=== PATIENT | female | born 1950 | race Caucasian/White ===

== ENCOUNTER 2017-01-06 08:05 | Emergency (ER) | payer MEDICARE ==
[2017-01-06] MEDS ORDERED: BENADRYL 50 MG/ML IV ONE (08:10)
[2017-01-06] MEDS ORDERED: Hydromorphone 1 mg/ml Ampule IV ONE (08:10)
[2017-01-06] MEDS ORDERED: Adacel Vial IM ONE ×2 (08:11→08:20)
[2017-01-06] MEDS ORDERED: Sodium Chloride 0.9% 1000 ML 1,000 ML IV SCH (08:15)
[2017-01-06] MEDS ORDERED: Sodium Chloride 0.9% 1000 ML 1,000 ML ONE (08:20)
[2017-01-06] MEDS ORDERED: Hydromorphone 1 mg/ml Ampule ONE (08:20)
[2017-01-06] MEDS ORDERED: BENADRYL 50 MG/ML ONE (08:20)
--- NOTE | 2017-01-06 08:23 | ERPHSYRPT ---
- History of Present Illness Time Seen by Provider: 01/06/17 08:08 Source: patient Patient Subjective Stated Complaint: pt arrived per pov for a fall this morning , she states she got up and from bed and thinks she might have had a near syncopal episode and fell, she states she hit the side of mary furniture, Triage Nursing Assessment: pt has pain to left rib and abd area, she has large abrasion to left side of back , no other abrasions or bruising, pt was able to walk in gaurding left side, resp easy,chest clear,abd soft tender to left side Physician History: CC: fall Hx: 66 y/o patient of Dr Leeann Christiansen. She got up this AM and felt like she was going to black out. She fell against her mary furniture. She has severe pain in left flank, ribs, and abdomen. Pain worse with movement or deep breath. Unsure last tetanus vaccine. Large abrasion. No headache or head injury. No neck or spine pain. No N/T/W. ILL: DM, CAD s/p CABG. No hx of kidney disease. Occurred: just prior to arrival Severity of Pain-Max: severe Severity of Pain-Current: severe Allergies/Adverse Reactions: ketorolac [From Toradol] Adverse Reaction (Verified 01/06/17 08:15) Home Medications: Metoprolol Tartrate 25 mg [Lopressor 25MG Tab] 25 mg .ROUTE BID 01/06/17 [ History] Hx Tetanus, Diphtheria Vaccination/Date Given: No Hx Influenza Vaccination/Date Given: No Hx Pneumococcal Vaccination/Date Given: No Immunizations Up to Date: Yes - Review of Systems Constitutional: No Fever, No Chills Eyes: No Symptoms Ears, Nose, & Throat: No Symptoms Respiratory: No Cough, No Dyspnea Cardiac: Chest Pain (ribs), Syncope (?) Abdominal/Gastrointestinal: Abdominal Pain, No Nausea, No Vomiting Genitourinary Symptoms: Flank Pain, No Dysuria, No Hematuria Musculoskeletal: Back Pain (ribs), Fall, No Neck Pain Neurological: No Dizziness, No Focal Weakness, No Headache, No Parasthesia All Other Systems: Reviewed and Negative - Past Medical History Pertinent Past Medical History: Yes Cardiac History: Coronary Artery Disease Endocrine Medical History: Diabetes Type II - Past Surgical History Past Surgical History: Yes Cardiac: Cardiac Catheterization, Cardiac Stent Female Surgical History: Other Other Surgical History: c/s,abd tumor removed - Social History Smoking Status: Never smoker Exposure to second hand smoke: No Drug Use: marijuana Patient Lives Alone: Yes - Female History Hx Last Menstrual Period: post - Nursing Vital Signs Nursing Vital Signs: Initial Vital Signs Temperature 97.2 F Temperature Source Oral Pulse Rate 82 Respiratory Rate 16 Blood Pressure [Right Arm] 126/57 Pain Intensity 4 - Brittany Coma Score Best Eye Response (Brittany): (4) open spontaneously Best Verbal Response (Brittany): (5) oriented Best Motor Response (Brittany): (6) obeys commands May Total: 15 - Physical Exam General Appearance: alert, obese, other (extremely uncomfortable with any movement) Head Injury: no evidence of injury Eye Exam: PERRL/EOMI ENT Exam: airway nml Neck Exam: supple, No mid-line tenderness Respiratory/Chest Exam: chest tenderness (left flank and ribs), normal breath sounds Cardiovascular Exam: normal heart sounds, regular rate/rhythm Gastrointestinal Exam: soft, No tenderness, No distention Extremity Exam: normal inspection, normal range of motion, No tenderness Neurologic Exam: alert, oriented x 3, cooperative, sensation nml, No motor deficits Skin Exam: warm, dry SpO2 Interpretation: normal SpO2: 99 Oxygen Delivery: Room Air - Course Nursing assessment & vital signs reviewed: Yes EKG Interpreted by Me: RATE (65), Sinus Rhythm, NORMAL AXIS, NORMAL INTERVALS ( [id number]), NORMAL QRS, NORMAL ST-T - CT Exams abd/pelvis,chest CT Interpretation: Negative, Tele-radiologist Report Ordered Tests: Active Orders 24 hr Category Date Time Status ACCUCHECK [Accucheck] STAT Care 01/06/17 08:52 Active Software Quality Test Engineer STAT Care 01/06/17 08:09 Active EKG-ER Only STAT Care 01/06/17 08:09 Active IV Insertion STAT Care 01/06/17 08:09 Active Wound Care STAT Care 01/06/17 08:11 Active ABDOMEN AND PELVIS W CONTRAST [CT] Stat Exams 01/06/17 08:10 Completed CHEST WITH CONTRAST [CT] Stat Exams 01/06/17 08:10 Taken CBC W DIFF Stat Lab 01/06/17 08:24 Completed CMP Stat Lab 01/06/17 08:24 Stop Req Medication Summary Generic Name Dose Route Start Last Admin Trade Name Edouard PRN Reason Stop Dose Admin Sodium Chloride 1,000 mls @ 100 mls/hr 01/06/17 08:15 01/06/17 08:21 Sodium Chloride 0.9% 1000 Ml IV 02/05/17 08:14 100 mls/hr .Q10H [place] Administration Discontinued Medications Generic Name Dose Route Start Last Admin Trade Name Edouard PRN Reason Stop Dose Admin Bacitracin 0.9 gm 01/06/17 09:49 Baciguent Packet TP 01/06/17 09:50 STAT ONE Diphenhydramine HCl 25 mg 01/06/17 08:10 01/06/17 08:23 Benadryl 50 Mg/Ml IV 01/06/17 08:11 25 mg STAT ONE Administration Diphenhydramine HCl Confirm 01/06/17 08:20 Benadryl 50 Mg/Ml Administered 01/06/17 08:21 Dose 50 mg .ROUTE .STK-MED ONE Diphtheria/Tetanus/Acell Pertussis 0.5 ml 01/06/17 08:11 01/06/17 08:21 Adacel Vial IM 01/06/17 08:12 0.5 ml .ONCE ONE Administration Diphtheria/Tetanus/Acell Pertussis Confirm 01/06/17 08:20 Adacel Vial Administered 01/06/17 08:21 Dose 0.5 ml IM .STK-MED ONE Hydromorphone HCl 1 mg 01/06/17 08:10 01/06/17 08:23 Hydromorphone 1 Mg/Ml Ampule IV 01/06/17 08:11 1 mg STAT ONE Administration Hydromorphone HCl Confirm 01/06/17 08:20 Hydromorphone 1 Mg/Ml Ampule Administered 01/06/17 08:21 Dose 1 mg .ROUTE .STK-MED ONE Sodium Chloride Confirm 01/06/17 08:20 Sodium Chloride 0.9% 1000 Ml Administered 01/06/17 08:21 Dose 1,000 mls @ ud .ROUTE .STK-MED ONE Lab/Rad Data: Laboratory Result Diagrams 01/06/17 08:24 Laboratory Results 01/06/17 Range/Units 08:24 WBC 12.3 H (4.0-10.5) K/mm3 RBC 4.82 (4.1-5.4) M/mm3 Hgb 14.0 (12.0-16.0) gm/dl Hct 42.7 (35-47) % MCV 88.6 (78-100) fl MCH 29.0 (26-32) pg MCHC 32.8 (32-36) g/dl RDW 13.8 (11.5-14.0) % Plt Count 281 (150-450) K/mm3 MPV 9.7 H (6-9.5) fl Gran % 76.7 H (36.0-66.0) % Lymphocytes % 14.1 L (24.0-44.0) % Monocytes % 8.2 (0.0-12.0) % Eosinophils % 0.8 (0.00-5.0) % Basophils % 0.2 (0.0-0.4) % Basophils # 0.03 (0-0.4) - Progress Progress Note: 01/06/17 10:42 Pt was medicated for pain. ?syncope. She declines home pain meds and will use motrin. She will follow up with Dr Leeann Christiansen. Instr given. Counseled pt/family regarding: lab results, diagnosis, need for follow-up, rad results - Departure Time of Disposition: 10:42 Departure Disposition: Home Clinical Impression: left flank contusion Syncope Qualifiers: Syncope type: unspecified Qualified Code(s): R55 - Syncope and collapse Abrasion of left back wall of thorax Qualifiers: Encounter type: initial encounter Qualified Code(s): S20.412A - Abrasion of left back wall of thorax, initial encounter Type 2 diabetes mellitus Qualifiers: Diabetes mellitus complication detail: with other circulatory complications Diabetes mellitus long term care administrator insulin use: with long term care administrator use Condition: Stable Critical Care Time: No Referrals: LEEANN CHRISTIANSEN [Primary Care Provider] - Instructions: Contusion, Fainting, Abrasion Additional Instructions: Stay with family today. No driving. Follow up this week with Dr Leeann Christiansen. REturn for problems or concerns.
[2017-01-06 08:28] LABS: BASOPHIL % 0.2 % (0.0-0.4); Eosinophil % 0.8 % (0.00-5.0); Granulocytes % 76.7 % (36.0-66.0); Lymphocytes % 14.1 % (24.0-44.0); Mean Cell Volume 88.6 fl (78-100); Mean Platelet Volume 9.7 fl (6-9.5); Monocytes % 8.2 % (0.0-12.0); Platelet Count 281 K/mm3 (150-450); Red Blood Count 4.82 M/mm3 (4.1-5.4); Red Cell Distribution Width 13.8 % (11.5-14.0); White Blood Count 12.3 K/mm3 (4.0-10.5)
[2017-01-06] MEDS ORDERED: BACIGUENT PACKET TP ONE (09:49)
--- NOTE | 2017-01-06 10:09 | XRAY ---
Indication: Left-sided pain following fall. Possible syncope. Multiple contiguous axial images obtained through the abdomen and pelvis using 80 cc Isovue 370 contrast only. Comparison: None CT chest reported separately. Noncontrasted stomach and bowel loops appear nonobstructed. Mild scattered colonic fecal debris predominantly in the right hemicolon. Scattered descending and sigmoid diverticulosis without diverticulitis. Previous appendectomy and hysterectomy. No free fluid/air. A few calcified splenic granulomas. Remaining liver, gallbladder, pancreas, spleen, adrenal glands, kidneys, ureters, and bladder appear unremarkable. Mild aortoiliac calcifications. No AAA or pathologic retroperitoneal lymphadenopathy. Osseous structures intact with mild degenerative changes throughout the spine. Impression: 1. Mild fecal stasis without obstruction. Colonic diverticulosis. 2. No acute intra-abdominal/pelvic abnormalities. CT DI 23.68
[2017-01-06 10:14] VITALS: PULSE 82
[2017-01-06 11:15] VITALS: BP 113/53; O2SAT 97
--- NOTE | 2017-01-07 12:05 | XRAY ---
Indication: Left-sided pain following fall. Possible syncope. Multiple contiguous axial images obtained through the chest using 80 cc Isovue 370 contrast. Comparison: None Lungs inflated with minimal bilateral dependent atelectasis, minimal bibasilar fibrosis/scarring, and left lower lobe calcified granuloma. No suspicious pulmonary mass, infiltrate, consolidation, or effusion. Heart is not enlarged and demonstrates previous CABG surgery. Aorta is normal in course and caliber with minimal calcifications. No pathologic mediastinal/hilar lymphadenopathy. Enlarged right thyroid gland with 1.4 cm nodule/cyst. Bony thorax intact with flowing spinal degenerative osteophytes. CT abdomen reported separately. Impression: Nonacute CT chest with contrast exam with chronic features as detailed. CT DI 23.68
== END 2017-01-06 11:13 | disposition home or self-care (01) ==
LOC: ED 08:05
DX: R55 Syncope and collapse (principal); S20.412A Abrasion of left back wall of thorax, initial encounter; S30.1XXA Contusion of abdominal wall, initial encounter; E13.8 Other specified diabetes mellitus with unspecified complications; I25.10 Atherosclerotic heart disease of native coronary artery without angina pectoris
CPT/HCPCS: 36000; 36415; 71260; 74177; 82962; 85025; 90471; 90715; 93005; 93041; 96360; 96361; 96372; 96374; 96375; 99284; J1170; J1200

== ENCOUNTER 2019-02-13 18:47 | Emergency (ER) | payer MEDICARE ==
[2019-02-13] MEDS ORDERED: Hydromorphone 1 mg/ml Ampule IV ONE (19:12)
[2019-02-13] MEDS ORDERED: Zofran 4 MG/2 ML VIAL IV ONE (19:12)
--- NOTE | 2019-02-13 19:12 | ERPHSYRPT ---
- History of Present Illness Time Seen by Provider: 02/13/19 19:05 Source: patient, family Exam Limitations: no limitations Patient Subjective Stated Complaint: woke up Tuesday with a stiff/sore neck on the right side, went to [facility] yesterday and was given prednisone, pain is worse today, reports pain as throbbing Triage Nursing Assessment: Pt states that she woke up Tuesday with a stiff/ sore neck on the right side, went to [facility] yesterday and was given prednisone, pain is worse today, reports pain as throbbing behind the ear, hypertensive, reports pain 10/, no other issues at this time Physician History: 68 y/o white female presents with 3 day h/o of right posterolateral neck pain. pt denies injury. pt woke up Tuesday am with pain. pt given rx for prednisone 20mg once daily 3 days. no improvement and feels sx worse. Timing/Duration: day(s) (3), worse Severity: moderate Modifying Factors: Improves With: movement (worsens) Associated Symptoms: denies symptoms, No nausea, No vomiting, No abdominal pain , No shortness of breath, No cough, No chills, No chest pain, No fever, No headaches, No loss of appetite, No malaise, No rash, No syncope, No seizure, No weakness Allergies/Adverse Reactions: ketorolac [From Toradol] Adverse Reaction (Verified 02/13/19 19:10) Home Medications: Metoprolol Tartrate 25 mg [Lopressor 25MG Tab] 25 mg PO BID 01/06/17 [ History] Enalapril Maleate 20 mg PO DAILY 02/13/19 [History] Insulin NPH Human Isophane [Novolin N] 35 units SQ BID 02/13/19 [History] Insulin Regular, Human [Novolin R] 17 units SQ UD 02/13/19 [History] Rosuvastatin Calcium [Crestor] 10 mg PO DAILY 02/13/19 [History] Hx Tetanus, Diphtheria Vaccination/Date Given: No Hx Influenza Vaccination/Date Given: No Hx Pneumococcal Vaccination/Date Given: No - Review of Systems Constitutional: No Symptoms Eyes: No Symptoms Ears, Nose, & Throat: No Symptoms Respiratory: No Symptoms Cardiac: No Symptoms Abdominal/Gastrointestinal: No Symptoms Genitourinary Symptoms: No Symptoms Musculoskeletal: Neck Pain (right posterolateral) Skin: No Symptoms Neurological: No Symptoms Psychological: No Symptoms Endocrine: No Symptoms Hematologic/Lymphatic: No Symptoms Immunological/Allergic: No Symptoms All Other Systems: Reviewed and Negative - Past Medical History Pertinent Past Medical History: Yes Neurological History: No Pertinent History ENT History: No Pertinent History Cardiac History: Coronary Artery Disease, Hypertension Respiratory History: No Pertinent History Endocrine Medical History: Diabetes Type II Musculoskeletal History: No Pertinent History GI Medical History: No Pertinent History History: No Pertinent History Psycho-Social History: No Pertinent History Female Reproductive Disorders: No Pertinent History - Past Surgical History Past Surgical History: Yes Neuro Surgical History: No Pertinent History Cardiac: CABG, Cardiac Catheterization Respiratory: No Pertinent History Gastrointestinal: No Pertinent History Genitourinary: No Pertinent History Musculoskeletal: No Pertinent History Female Surgical History: Hysterectomy, Section Other Surgical History: abd tumor removed - Social History Smoking Status: Former smoker Exposure to second hand smoke: No Drug Use: none Patient Lives Alone: Yes - Female History Hx Now: No - Nursing Vital Signs Nursing Vital Signs: Initial Vital Signs Temperature 98.4 F 02/13/19 18:55 Pulse Rate 79 02/13/19 18:55 Blood Pressure 149/47 02/13/19 18:55 O2 Sat by Pulse Oximetry 97 02/13/19 18:55 Pain Scale Pain Intensity [Right Neck] 10 Pain Intensity 2 - Physical Exam General Appearance: moderate distress, alert, anxiety Eye Exam: PERRL/EOMI, eyes nml inspection Ears, Nose, Throat Exam: normal ENT inspection, TMs normal, moist mucous membranes Neck Exam: normal inspection, limited range of motion (secondary to pain), other (right paraspinous muscle and trapezius muscle tenderness), No midline tenderness Respiratory Exam: normal breath sounds, lungs clear, No chest tenderness, No respiratory distress, No accessory muscle use, No rhonchi, No wheezing, No stridor Gastrointestinal/Abdomen Exam: soft, No tenderness Pelvic Exam: not done Rectal Exam: not done Back Exam: normal inspection, normal range of motion, No CVA tenderness, No vertebral tenderness Extremity Exam: normal inspection, normal range of motion, pelvis stable Neurologic Exam: alert, oriented x 3, cooperative, automatic glove turner and former II-XII nml as tested Skin Exam: normal color, warm, dry Lymphatic Exam: No adenopathy SpO2 Interpretation: normal SpO2: 97 O2 Delivery: Room Air Ordered Tests: Active Orders 24 hr Category Date Time Status IV Insertion STAT Care 02/13/19 19:12 Active Oxygen-ED Only Nasal Cannula 2 lpm Care 02/13/19 19:57 Active CERVICAL SPINE WO CONTRAST [CT] Stat Exams 02/13/19 19:13 Taken Medication Summary Discontinued Medications Generic Name Dose Route Start Last Admin Trade Name Edouard PRN Reason Stop Dose Admin Hydromorphone HCl 0.5 mg 02/13/19 19:12 02/13/19 19:31 Hydromorphone 1 Mg/Ml Ampule IV 02/13/19 19:13 0.5 mg STAT ONE Administration Hydromorphone HCl Confirm 02/13/19 19:21 Hydromorphone 1 Mg/Ml Ampule Administered 02/13/19 19:22 Dose 1 mg .ROUTE .STK-MED ONE Lorazepam 1 mg 02/13/19 19:14 02/13/19 19:31 Ativan 2 Mg/1 Ml Vial IV 02/13/19 19:15 1 mg STAT ONE Administration Lorazepam Confirm 02/13/19 19:21 Ativan 2 Mg/1 Ml Vial Administered 02/13/19 19:22 Dose 2 mg .ROUTE .STK-MED ONE Methylprednisolone Sodium Succinate 125 mg 02/13/19 19:15 02/13/19 19:30 Solu-Medrol 125 Mg IV 02/13/19 19:16 125 mg STAT ONE Administration Methylprednisolone Sodium Succinate Confirm 02/13/19 19:21 Solu-Medrol 125 Mg Administered 02/13/19 19:22 Dose 125 mg .ROUTE .STK-MED ONE Ondansetron HCl 4 mg 02/13/19 19:12 02/13/19 19:30 Zofran 4 Mg/2 Ml Vial IV 02/13/19 19:13 4 mg STAT ONE Administration Ondansetron HCl Confirm 02/13/19 19:20 Zofran 4 Mg/2 Ml Vial Administered 02/13/19 19:21 Dose 4 mg .ROUTE .STK-MED ONE - Progress Progress: improved, re-examined Progress Note: 02/13/19 21:07 ct c spine: degenerative changes. no acute fx or subluxation 02/13/19 21:08 pt states her pain has sig improved. Counseled pt/family regarding: diagnosis, need for follow-up, rad results - Departure Time of Disposition: 21:08 Departure Disposition: Home Clinical Impression: Muscle spasms of neck Condition: Stable Critical Care Time: No Referrals: LEEANN CHRISTIANSEN [Primary Care Provider] - Additional Instructions: continue your prednisone. call your primary doctor tomorrow for further management Prescriptions: Carisoprodol 350 mg [Soma 350 mg] 350 mg PO Q8H PRN PRN #10 tablet PRN Reason: Muscle Spasms
[2019-02-13] MEDS ORDERED: Ativan 2 MG/1 ML VIAL IV ONE (19:14)
[2019-02-13] MEDS ORDERED: solu-MEDROL 125 MG IV ONE (19:15)
[2019-02-13] MEDS ORDERED: Zofran 4 MG/2 ML VIAL ONE (19:20)
[2019-02-13] MEDS ORDERED: solu-MEDROL 125 MG ONE (19:21)
[2019-02-13] MEDS ORDERED: Ativan 2 MG/1 ML VIAL ONE (19:21)
[2019-02-13] MEDS ORDERED: Hydromorphone 1 mg/ml Ampule ONE (19:21)
[2019-02-13 21:03] VITALS: BP 143/53
[2019-02-13 21:18] VITALS: PULSE 71; O2SAT 92
--- NOTE | 2019-02-14 08:55 | XRAY ---
Indication: Neck pain and stiffness. No known injury. Multiple contiguous axial images obtained through the cervical spine. Sagittal and coronal reformatted images obtained. Comparison: CT neck December 29, 2016. Axial images negative for acute fracture, suspicious bony lesions, or spinal canal stenosis. Stable multilevel degenerative changes including bilateral degenerative facet hypertrophy. Again incidental C2-C3 congenital fusion. Sagittal and coronal reformatted images demonstrates stable normal alignment. Stable C7-T1 disc space narrowing. No acute compression fracture, subluxation, or jumped facet. Normal appearing craniocervical junction. Visualized noncontrasted soft tissues demonstrates stable heterogeneous thyroid gland including enlarged right lobe and substernal thyroid. Base of the brain and lung apices unremarkable. Impression: 1. Stable multilevel degenerative changes. 2. Negative acute fracture/subluxation. 3. Stable incidental heterogeneous thyroid gland with enlarged right lobe and substernal thyroid. CT DI 62.13
== END 2019-02-13 21:27 | disposition home or self-care (01) ==
LOC: ED 18:47
DX: M62.838 Other muscle spasm (principal); M43.6 Torticollis; M54.2 Cervicalgia; I10 Essential (primary) hypertension; E11.9 Type 2 diabetes mellitus without complications
CPT/HCPCS: 36000; 72125; 96374; 96375; 99284; J1170; J2060; J2405; J2930

== ENCOUNTER 2019-02-15 16:00 | Observation (INO) | payer MEDICARE ==
--- NOTE | 2019-02-15 16:38 | ERPHSYRPT ---
- History of Present Illness Historian: patient Exam Limitations: no limitations Patient Subjective Stated Complaint: pain in RLQ, has a chronic constipation problem and had been trying to go to the restroom since 0600 today and she now goes to the bathroom and blood pours out without even trying Triage Nursing Assessment: Pt c/o of RLQ pain that began today, hx of chronic constipation, was trying to have a bowel movement this morning which resulted in a small one but then she began bleeding from the rectum without attempting to produce a bowel movement, bright red blood, pain with palpatation in the right upper and lower quadrants, bowel sounds heard in all 4 quadrants, vomited this AM, vitals wnl, pulses normal, rates pain 05/07 Timing/Duration: today Activities at Onset: none Quality: cramping Abdominal Pain Onset Location: RLQ Severity of Pain-Max: moderate Severity of Pain-Current: mild Modifying Factors: Improves With: other (constipated earlier than blood in her stools). Worsens With: analgesics, antacids, breathing, coughing, defecating, eating, exercise, lying down, movement, palpation, rest, urinating, vomiting, position, walking Associated Symptoms: other (constipated earlier, then blood in her stool), No back, No chest pain, No diaphoresis, No diarrhea, No fever/chills, No fatigue, No headache, No heartburn, No loss of appetite, No nausea, No neck pain, No rash , No shortness of breath, No syncope, No vomiting, No weakness Previous symptoms: no prior history Hx Tetanus, Diphtheria Vaccination/Date Given: No Hx Influenza Vaccination/Date Given: No Hx Pneumococcal Vaccination/Date Given: No <DRE ZAMORANO - Last Filed: 02/15/19 19:21> <KRISTIAN MCMAHAN - Last Filed: 02/15/19 20:35> - History of Present Illness Time Seen by Provider: 02/15/19 16:27 Physician History: 68-year-old white female with history of diabetes type 2, coronary artery disease, high blood pressure . Patient arrives with complaints of constipated since 6:00 this morning she states that she had blood coming from her stool since just prior to arrival. She states she is having right lower quadrant abdominal pain. No nausea no vomiting. Past medical history includes diabetes type 2, coronary artery disease, high blood pressure Past surgical history includes cardiac catheter, hysterectomy, , abdominal tumor removed Social history patient denies tobacco alcohol or illicit drug use (DRE ZAMORANO) Allergies/Adverse Reactions: ketorolac [From Toradol] Adverse Reaction (Verified 02/15/19 16:23) Home Medications: Metoprolol Tartrate 25 mg [Lopressor 25MG Tab] 25 mg PO BID 01/06/17 [ History] Enalapril Maleate 20 mg PO DAILY 02/13/19 [History] Insulin NPH Human Isophane [Novolin N] 35 units SQ BID 02/13/19 [History] Insulin Regular, Human [Novolin R] 17 units SQ UD 02/13/19 [History] Rosuvastatin Calcium [Crestor] 10 mg PO DAILY 02/13/19 [History] - Review of Systems Constitutional: No Fever, No Chills Eyes: No Symptoms Ears, Nose, & Throat: No Symptoms Respiratory: No Cough, No Dyspnea Cardiac: No Chest Pain, No Edema, No Syncope Abdominal/Gastrointestinal: Abdominal Pain (right lower quadrant abdominal pain) , Constipation, Hematochezia, No Nausea, No Vomiting, No Diarrhea, No Hematemesis, No Melena, No Dysphagia, No Appetite Changes Genitourinary Symptoms: No Dysuria Musculoskeletal: No Back Pain, No Neck Pain Skin: No Rash Neurological: No Dizziness, No Focal Weakness, No Sensory Changes Psychological: No Symptoms Endocrine: No Symptoms All Other Systems: Reviewed and Negative <DRE ZAMORANO - Last Filed: 02/15/19 19:21> - Past Medical History Pertinent Past Medical History: Yes Neurological History: No Pertinent History ENT History: No Pertinent History Cardiac History: Coronary Artery Disease, Hypertension Respiratory History: No Pertinent History Endocrine Medical History: Diabetes Type II Musculoskeletal History: No Pertinent History GI Medical History: No Pertinent History History: No Pertinent History Psycho-Social History: No Pertinent History Female Reproductive Disorders: No Pertinent History - Past Surgical History Past Surgical History: Yes Neuro Surgical History: No Pertinent History Cardiac: CABG, Cardiac Catheterization Respiratory: No Pertinent History Gastrointestinal: No Pertinent History Genitourinary: No Pertinent History Musculoskeletal: No Pertinent History Female Surgical History: Hysterectomy, Section Other Surgical History: abd tumor removed - Social History Smoking Status: Former smoker Exposure to second hand smoke: No Drug Use: none Patient Lives Alone: Yes - Female History Hx Now: No <LONADRE HEARDLEY - Last Filed: 02/15/19 19:21> - Physical Exam General Appearance: no apparent distress, alert Eye Exam: PERRL/EOMI, eyes nml inspection Ears, Nose, Throat Exam: normal ENT inspection, pharynx normal, moist mucous membranes Neck Exam: normal inspection, non-tender, supple, full range of motion Respiratory Exam: normal breath sounds, lungs clear, No respiratory distress Cardiovascular Exam: regular rate/rhythm, normal heart sounds, capillary refill <2 sec Gastrointestinal/Abdomen Exam: soft, normal bowel sounds, tenderness (Right lower quadrant tenderness), No distention, No mass, No guarding, No ecchymosis, No pulsatile mass, No rebound, No hepatomegaly, No organomegaly, No splenomegaly Pelvic Exam: not done Rectal Exam: other (patient with bright red blood on rectal examination) Back Exam: normal inspection, normal range of motion, No CVA tenderness, No vertebral tenderness Extremity Exam: normal inspection, normal range of motion, pelvis stable Neurologic Exam: alert, oriented x 3, cooperative, kiln repairer II-XII nml as tested, normal mood/affect, nml cerebellar function, sensation nml, No motor deficits SpO2 Interpretation: normal (97%) SpO2: 97 <LONADRE JULIANA - Last Filed: 02/15/19 19:21> - Nursing Vital Signs Nursing Vital Signs: Initial Vital Signs Temperature 97.4 F 02/15/19 16:07 Pulse Rate 65 02/15/19 16:07 Respiratory Rate 24 02/15/19 16:07 Blood Pressure 122/66 02/15/19 16:07 O2 Sat by Pulse Oximetry 97 02/15/19 16:07 Pain Scale Pain Intensity 4 Ordered Tests: Active Orders 24 hr Category Date Time Status IV Insertion STAT Care 02/15/19 16:32 Active IV Insertion-2nd Peripheral STAT Care 02/15/19 16:32 Active ABDOMEN AND PELVIS W CONTRAST [CT] Stat Exams 02/15/19 19:15 Ordered CBC W DIFF Stat Lab 02/15/19 16:52 Completed CMP Stat Lab 02/15/19 16:52 Stop Req Occult Blood, Other Screening Stat Lab 02/15/19 18:04 Completed PROTIME WITH INR Stat Lab 02/15/19 16:52 Completed PTT Stat Lab 02/15/19 16:52 Completed UA W/RFX UR CULTURE Stat Lab 02/15/19 18:00 Completed Transfer Order Routine Transfer 02/15/19 Ordered Medication Summary Generic Name Dose Route Start Last Admin Trade Name Edouard PRN Reason Stop Dose Admin Sodium Chloride 1,000 mls @ 100 mls/hr 02/15/19 16:45 02/15/19 18:02 Sodium Chloride 0.9% 1000 Ml IV 03/17/19 16:44 100 mls/hr .Q10H ALBAN Administration Levofloxacin/Dextrose 500 mg in 100 mls @ 100 mls/hr 02/15/19 20:21 02/15/19 20:29 Levofloxacin 500mg/100ml D5w IV 02/15/19 21:20 100 ml/hr STAT STA 100 mls/hr Administration Discontinued Medications Generic Name Dose Route Start Last Admin Trade Name Edouard PRN Reason Stop Dose Admin Levofloxacin/Dextrose Confirm 02/15/19 20:25 Levofloxacin 500mg/100ml D5w Administered 02/15/19 20:26 Dose 500 mg in 100 mls @ ud IV .STK-MED ONE Lab/Rad Data: Laboratory Result Diagrams 02/15/19 16:52 02/15/19 16:52 Laboratory Results 02/15/19 02/15/19 02/15/19 Range/Units 18:04 18:00 16:52 WBC (4.0-10.5) K/mm3 RBC (4.1-5.4) M/mm3 Hgb (12.0-16.0) gm/dl Hct (35-47) % MCV (78-100) fl MCH (26-32) pg MCHC (32-36) g/dl RDW (11.5-14.0) % Plt Count (150-450) K/mm3 MPV (6-9.5) fl Gran % (36.0-66.0) % Eos # (Auto) (0-0.5) Absolute Lymphs (auto) (1.0-4.6) Absolute Monos (auto) (0.0-1.3) Lymphocytes % (24.0-44.0) % Monocytes % (0.0-12.0) % Eosinophils % (0.00-5.0) % Basophils % (0.0-0.4) % Absolute Granulocytes (1.4-6.9) Basophils # (0-0.4) PT (9.95-12.35) SECONDS INR (0.8-3.0) APTT (25.3-37.0) SECONDS Sodium Direct 145 (138-146) mmol/L Potassium 3.5 (3.5-4.9) mmol/L Chloride 104 (98-109) mmol/L Carbon Dioxide 32 H (24-29) mmol/L Venous BUN 31 H (8-26) mg/dL Creatinine 1.0 (0.6-1.3) mg/dL Glucose 64 L (70-105) mg/dL Ionized Calcium 1.19 (1.12-1.32) mmol/L Urine Color STRAW (YELLOW) Urine Appearance SLIGHTLY CLOUDY (CLEAR) Urine pH 6.0 (5-6) Ur Specific Collins 1.006 (1.005-1.025) Urine Protein NEGATIVE (Negative) Urine Ketones NEGATIVE (NEGATIVE) Urine Blood NEGATIVE (0-5) Roby/ul Urine Nitrite NEGATIVE (NEGATIVE) Urine Bilirubin NEGATIVE (NEGATIVE) Urine Urobilinogen NEGATIVE (0-1) mg/dL Ur Leukocyte Esterase NEGATIVE (NEGATIVE) Urine WBC (Auto) NONE (0-5) /HPF Urine RBC (Auto) NONE (0-2) /HPF U Epithel Cells (Auto) RARE (FEW) /HPF Urine Bacteria (Auto) RARE (NEGATIVE) /HPF Urine Mucus (Auto) SLIGHT (NEGATIVE) /HPF Urine Culture Reflexed NO (NO) Urine Glucose NEGATIVE (NEGATIVE) mg/dL Stool Occult Blood POSITIVE A (Negative) Slides for Path Review ABO Group Rh Factor Antibody Screen (NEGATIVE) 02/15/19 02/15/19 02/15/19 Range/Units 16:52 16:52 16:52 WBC 18.6 H (4.0-10.5) K/mm3 RBC 4.72 (4.1-5.4) M/mm3 Hgb 13.9 (12.0-16.0) gm/dl Hct 43.3 (35-47) % MCV 91.7 (78-100) fl MCH 29.4 (26-32) pg MCHC 32.1 (32-36) g/dl RDW 14.1 H (11.5-14.0) % Plt Count 292 (150-450) K/mm3 MPV 9.3 (6-9.5) fl Gran % 79.2 H (36.0-66.0) % Eos # (Auto) 0.02 (0-0.5) Absolute Lymphs (auto) 1.86 (1.0-4.6) Absolute Monos (auto) 1.96 H (0.0-1.3) Lymphocytes % 10.0 L (24.0-44.0) % Monocytes % 10.5 (0.0-12.0) % Eosinophils % 0.1 (0.00-5.0) % Basophils % 0.2 (0.0-0.4) % Absolute Granulocytes 14.77 H (1.4-6.9) Basophils # 0.03 (0-0.4) PT 12.0 (9.95-12.35) SECONDS INR 1.03 (0.8-3.0) APTT 20.3 L (25.3-37.0) SECONDS Sodium Direct (138-146) mmol/L Potassium (3.5-4.9) mmol/L Chloride (98-109) mmol/L Carbon Dioxide (24-29) mmol/L Venous BUN (8-26) mg/dL Creatinine (0.6-1.3) mg/dL Glucose (70-105) mg/dL Ionized Calcium (1.12-1.32) mmol/L Urine Color (YELLOW) Urine Appearance (CLEAR) Urine pH (5-6) Ur Specific Collins (1.005-1.025) Urine Protein (Negative) Urine Ketones (NEGATIVE) Urine Blood (0-5) Roby/ul Urine Nitrite (NEGATIVE) Urine Bilirubin (NEGATIVE) Urine Urobilinogen (0-1) mg/dL Ur Leukocyte Esterase (NEGATIVE) Urine WBC (Auto) (0-5) /HPF Urine RBC (Auto) (0-2) /HPF U Epithel Cells (Auto) (FEW) /HPF Urine Bacteria (Auto) (NEGATIVE) /HPF Urine Mucus (Auto) (NEGATIVE) /HPF Urine Culture Reflexed (NO) Urine Glucose (NEGATIVE) mg/dL Stool Occult Blood (Negative) Slides for Path Review YES ABO Group O Rh Factor NEGATIVE Antibody Screen NEGATIVE (NEGATIVE) - Progress Progress: improved <DRE ZAMORANO - Last Filed: 02/15/19 19:21> - Progress Discussed with : Lin (DR AZUL CONSULTED AT 1930 FOR OBSERVATION) <KRISTIAN MCMAHAN - Last Filed: 02/15/19 20:35> - Progress Progress Note: 02/15/19 18:00 60-year-old white female arrives with complaint constipation since this morning then this afternoon she's had hematochezia. Patient appears to be stable. She has some mild right lower quadrant abdominal pain. Rectal examination positive gross blood with rectal exam. 02/15/19 18:46 Patient is wanting to stay at this hospital and consult with Dr. Huitron if she needs scoped. Unfortunately chemistry analyzer is down in patient's chemistry has been sent to [facility] to be run. If patient can have a CTA and she has renal functions that qualify for this he would like to have a CT done. 02/15/19 19:21 The patient's case has been discussed with Dr. Mcmahan. He will some care of this patient secondary to shift change. (DRE ZAMORANO) <DRE ZAMORANO - Last Filed: 02/15/19 19:21> - Departure Time of Disposition: 19:30 Departure Disposition: Observation Critical Care Time: No <KRISTIAN MCMAHAN - Last Filed: 02/15/19 20:35> - Departure Clinical Impression: LOWER GI BLEED Condition: Stable Referrals: LEEANN CHRISTIANSEN [Primary Care Provider] -
[2019-02-15] MEDS ORDERED: Sodium Chloride 0.9% 1000 ML 1,000 ML IV SCH (16:45)
[2019-02-15 17:02] LABS: BASOPHIL % 0.2 % (0.0-0.4); Basophil (Absolute #) 0.03 (0-0.4); Eosinophil % 0.1 % (0.00-5.0); Eosinophil (Absolute #) 0.02 (0-0.5); Granulocyte Absolute (ANC) 14.77 (1.4-6.9); Granulocytes % 79.2 % (36.0-66.0); Hematocrit 43.3 % (35-47); Hemoglobin 13.9 gm/dl (12.0-16.0); Lymphocyte (Absolute #) 1.86 (1.0-4.6); Mean Cell Volume 91.7 fl (78-100); Mean Corpuscular Hemoglobin 29.4 pg (26-32); Mean Corpuscular Hgb Concent. 32.1 g/dl (32-36); Mean Platelet Volume 9.3 fl (6-9.5); Monocyte (Absolute #) 1.96 (0.0-1.3); Monocytes % 10.5 % (0.0-12.0); Platelet Count 292 K/mm3 (150-450); Red Blood Count 4.72 M/mm3 (4.1-5.4); Red Cell Distribution Width 14.1 % (11.5-14.0); White Blood Count 18.6 K/mm3 (4.0-10.5)
[2019-02-15 17:14] LABS: INR 1.03 (0.8-3.0)
[2019-02-15 17:17] LABS: PTT 20.3 SECONDS (25.3-37.0)
[2019-02-15 17:36] LABS: Slide Review 1 YES
[2019-02-15] MEDS ORDERED: Sodium Chloride 0.9% 1000 ML 1,000 ML ONE (17:59)
[2019-02-15 18:00] LABS: ABO TYPING O; Antibody Screen NEGATIVE (NEGATIVE); RH TYPING NEGATIVE
[2019-02-15 18:37] LABS: Appearance SLIGHTLY CLOUDY (CLEAR); Bacteria RARE /HPF (NEGATIVE); Bilirubin NEGATIVE (NEGATIVE); Blood NEGATIVE Ery/ul (0-5); Epithelial Cells RARE /HPF (FEW); Glucose NEGATIVE (NEGATIVE); Ketones NEGATIVE (NEGATIVE); Leukocyte Esterase NEGATIVE (NEGATIVE); Mucus SLIGHT /HPF (NEGATIVE); Nitrite NEGATIVE (NEGATIVE); Protein,Urine Dip NEGATIVE (Negative); Specific Gravity 1.006 (1.005-1.025); Urobilinogen NEGATIVE mg/dL (0-1)
[2019-02-15] MEDS ORDERED: Levofloxacin 500MG/100ML D5W 500 MG/100 ML BAG IV STA (20:21)
[2019-02-15] MEDS ORDERED: Levofloxacin 500MG/100ML D5W 500 MG/100 ML BAG IV ONE (20:25)
[2019-02-15] MEDS ORDERED: NovoLOG Insulin SQ PRN (21:07)
[2019-02-15] MEDS ORDERED: SOMA 350 MG PO PRN (22:49)
[2019-02-15] MEDS: FLAGYL 500 MG IVPB 500 MG/100 ML BAG IV SCH (23:16)
[2019-02-15] MEDS: Lopressor 25MG Tab PO SCH (23:16)
[2019-02-15] MEDS ORDERED: Dextrose 5% -0.45 NaCl 1000 ML 1,000 ML IV SCH (23:45)
[2019-02-16] MEDS ORDERED: TYLENOL 325 MG PO PRN (01:50)
[2019-02-16] MEDS ORDERED: TYLENOL 325 MG ONE (01:59)
[2019-02-16] MEDS ORDERED: Sodium Chloride 0.9% 1000 ML 1,000 ML ONE (03:15)
[2019-02-16] MEDS: Sodium Chloride 0.9% 1000 ML 1,000 ML IV SCH ×2 (03:30→16:10)
[2019-02-16 07:36] LABS: BASOPHIL % 0.2 % (0.0-0.4); Basophil (Absolute #) 0.02 (0-0.4); Eosinophil % 0.5 % (0.00-5.0); Eosinophil (Absolute #) 0.06 (0-0.5); Granulocyte Absolute (ANC) 9.69 (1.4-6.9); Hematocrit 40.6 % (35-47); Lymphocyte (Absolute #) 1.97 (1.0-4.6); Lymphocytes % 15.1 % (24.0-44.0); Mean Cell Volume 91.6 fl (78-100); Mean Corpuscular Hemoglobin 29.3 pg (26-32); Monocyte (Absolute #) 1.34 (0.0-1.3); Monocytes % 10.2 % (0.0-12.0); Platelet Count 258 K/mm3 (150-450); Red Blood Count 4.43 M/mm3 (4.1-5.4); Red Cell Distribution Width 13.9 % (11.5-14.0); White Blood Count 13.1 K/mm3 (4.0-10.5)
[2019-02-16 07:56] LABS: ALBUMIN 3.4 g/dL (3.5-5.0); ALKALINE PHOSPHATASE 55 U/L (38-126); ANION GAP 11.2 MEQ/L (5-15); BLOOD UREA NITROGEN 24 mg/dL (7-17); CHLORIDE 109 mmol/L (98-107); Calcium 8.5 mg/dL (8.4-10.2); Carbon Dioxide 26 mmol/L (22-30); Creatinine 1 0.94 mg/dL (0.52-1.04); Glucose 85 mg/dL (74-106); Potassium 3.6 mmol/L (3.5-5.1); SGOT/AST 19 U/L (14-36); SGPT/ALT 15 U/L (0-35); SODIUM 142 mmol/L (137-145)
[2019-02-16] MEDS: FLAGYL 500 MG IVPB 500 MG/100 ML BAG IV SCH ×2 (08:39→15:41)
--- NOTE | 2019-02-16 09:30 | CONS ---
CONSULT DATE: 02/15/2019 2200 hours REASON FOR CONSULT: Rectal bleeding. HISTORY: The patient presents with rectal bleeding that started today that was bright red blood per rectum. She has had several episodes of this today although the amount has not been that much. She has never had this before. She has had a colonoscopy about four years ago. She denies any abdominal pain, diarrhea, constipation. She denies any chest pain or shortness of breath. PAST MEDICAL HISTORY: Diabetes. Coronary artery disease. Hypertension. PAST SURGICAL HISTORY: Coronary artery bypass graft. Total abdominal hysterectomy bilateral salpingo-oophorectomy for uterine that was benign. Carpal tunnel. MEDICATIONS: Aspirin. ALLERGIES: KETOROLAC. SOCIAL HISTORY: No tobacco. No alcohol. FAMILY HISTORY: Brother with colon cancer in his 50's. PHYSICAL EXAMINATION: GENERAL: No acute distress. HEENT: Sclera nonicteric. Extraocular movements intact. NECK: Supple. No JVD. CHEST: Nonlabored breathing. ABDOMEN: Soft, nondistended, nontender. NEURO: Awake, alert and oriented. PSYCH: Appropriate mood and affect. RECTAL: No masses felt. No external hemorrhoids or fissure. Small amount of old blood in the rectal vault. LAB DATA AND TESTS: Hemoglobin 13. ASSESSMENT: Rectal bleeding. PLAN: The patient is hemodynamically stable with a fairly normal hemoglobin. I agree with admission for observation for any further rectal bleeding and repeat hemoglobin. Depending on how the patient does, upper and lower endoscopy could potentially be performed inpatient or as an outpatient.
[2019-02-16] MEDS ORDERED: ZOCOR 20MG PO SCH (10:00)
[2019-02-16] MEDS ORDERED: NON-FORMULARY ITEM (Rosuvastatin Calcium [Crestor] 10 MG) PO SCH (10:00)
[2019-02-16] MEDS ORDERED: Vasotec 10 MG PO SCH (10:00)
[2019-02-16] MEDS: Lopressor 25MG Tab PO SCH (11:07)
--- NOTE | 2019-02-16 11:11 | PCM.HP ---
History of Present Illness - Chief Complaint Chief Complaint: GI bleed History of Present Illness: is a 68 year old female with PMH of DM, HTN, and constipation presents with abdominal cramp and painless hematchezia started yesterday. Pt denies any f /c, BYRNES, visual changes, cp, sob, n/v/d, or bleeding recently. Pt had a colonoscopy 4yr with normal findings. Surgery has been consulted and suggests conservative management. Medications & Allergies Home Medications: Home Medication List Metoprolol Tartrate 25 mg [Lopressor 25MG Tab] 25 mg PO BID 01/06/17 [ History Confirmed 02/15/19] Carisoprodol 350 mg [Soma 350 mg] 350 mg PO Q8H PRN PRN #10 tablet 02/13/19 [Rx Confirmed 02/15/19] Enalapril Maleate 20 mg PO DAILY 02/13/19 [History Confirmed 02/15/19] Insulin NPH Human Isophane [Novolin N] 35 units SQ BID 02/13/19 [History Confirmed 02/15/19] Insulin Regular, Human [Novolin R] 17 units SQ UD 02/13/19 [History Confirmed ] Rosuvastatin Calcium [Crestor] 10 mg PO DAILY 02/13/19 [History Confirmed ] Furosemide [Lasix] 10 mg PO DAILY 02/15/19 [History Confirmed 02/15/19] Insulin Regular, Human [NovoLIN R] 10 unit IJ UD 02/15/19 [History Confirmed 02/15/19] Allergies/Adverse Reactions: Allergies Allergy/AdvReac Type Severity Reaction Status Date / Time ketorolac [From Toradol] AdvReac Verified 02/15/19 16:23 - Past Medical History Past Medical History: Yes Neurological History: No Pertinent History ENT History: No Pertinent History Cardiac History: Coronary Artery Disease, Hypertension Respiratory History: No Pertinent History Endocrine Medical History: Diabetes Type II Musculoskelatal History: No Pertinent History GI Medical History: No Pertinent History History: No Pertinent History Pyscho-Social History: No Pertinent History Reproductive Disorders: No Pertinent History - Female History Are you now?: No - Past Surgical History Past Surgical History: Yes Neuro Surgical History: No Pertinent History Cardiac History: CABG, Cardiac Catheterization Respiratory Surgery: No Pertinent History GI Surgical History: No Pertinent History Genitourinary Surgical Hx: No Pertinent History Musculskeletal Surgical Hx: Other Female Surgical History: Hysterectomy, Section Other Surgical History: abd tumor removed, carpal tunnel - Social History Smoking Status: Former smoker Exposure to second hand smoke: No Alcohol: None Drug Use: none - Physical Exam Vital Signs: Vital Signs - 24 hr Temp Pulse Resp BP Pulse Ox 02/16/19 07:49 98.2 F 69 18 143/60 95 02/16/19 07:32 92 L 02/15/19 23:59 98.4 F 59 L 17 121/59 95 02/15/19 23:30 92 L 02/15/19 21:13 98.5 F 64 17 131/62 97 02/15/19 20:42 61 18 137/57 97 02/15/19 19:22 97 02/15/19 18:01 57 L 16 124/56 99 02/15/19 16:07 97.4 F 65 24 122/66 97 Additional Findings: General appearance: alert, cooperative, no distress Head: Normocephalic, without trauma Eyes: sclera and conjunctiva clear, EOMI and PERRLA, lids normal Ears: canals clear, hearing intact to voice Nose: nares open; Throat: no mucous membrane abnormalities Neck: range of motion is intact, no masses, Back: no deformity or tenderness Chest: no tenderness, Lungs: breath sounds normal and symmetric; no rales or wheezes Heart: regular rhythm, normal S1 and S2, without murmurs, gallops or rubs Abdomen: soft; mild lower abdominal tenderness without guarding; surgical scar presents; positive bowel sounds Extremities: no clubbing, cyanosis or edema Circulation: Carotid and pedal pulses are intact and symmetrical, no carotid bruits Joints: ranges of motion normal without inflammation, effusion or deformity Skin: warm and dry; no rashes or other abnormalities are noted Neurologic: mental status normal; alert and oriented X 3; cranial nerves II - XII are grossly intact Psychological: cooperative; normal behavior and affect 02/16/19 16:05 02/16/19 17:49 Results - Labs Lab/Micro Results: Accuchecks Date 02/16/19 Date 02/16/19 Date 02/15/19 Time 06:00 Time 22:00 Accucheck Value: 85 Accucheck Value: 73 Accucheck Value: 72 Lab Results-Last 24 Hours 02/15/19 02/15/19 02/15/19 Range/Units 16:52 16:52 16:52 WBC 18.6 H (4.0-10.5) K/mm3 RBC 4.72 (4.1-5.4) M/mm3 Hgb 13.9 (12.0-16.0) gm/dl Hct 43.3 (35-47) % MCV 91.7 (78-100) fl MCH 29.4 (26-32) pg MCHC 32.1 (32-36) g/dl RDW 14.1 H (11.5-14.0) % Plt Count 292 (150-450) K/mm3 MPV 9.3 (6-9.5) fl Gran % 79.2 H (36.0-66.0) % Eos # (Auto) 0.02 (0-0.5) Absolute Lymphs (auto) 1.86 (1.0-4.6) Absolute Monos (auto) 1.96 H (0.0-1.3) Lymphocytes % 10.0 L (24.0-44.0) % Monocytes % 10.5 (0.0-12.0) % Eosinophils % 0.1 (0.00-5.0) % Basophils % 0.2 (0.0-0.4) % Absolute Granulocytes 14.77 H (1.4-6.9) Basophils # 0.03 (0-0.4) PT 12.0 (9.95-12.35) SECONDS INR 1.03 (0.8-3.0) APTT 20.3 L (25.3-37.0) SECONDS Sodium (137-145) mmol/L Sodium Direct (138-146) mmol/L Potassium (3.5-4.9) mmol/L Chloride (98-109) mmol/L Carbon Dioxide (24-29) mmol/L Anion Gap (5-15) MEQ/L BUN (7-17) mg/dL Venous BUN (8-26) mg/dL Creatinine (0.6-1.3) mg/dL Estimated GFR ML/MIN Glucose (70-105) mg/dL Calcium (8.4-10.2) mg/dL Ionized Calcium (1.12-1.32) mmol/L Total Bilirubin (0.2-1.3) mg/dL AST (14-36) U/L ALT (0-35) U/L Alkaline Phosphatase (38-126) U/L Serum Total Protein (6.3-8.2) g/dL Albumin (3.5-5.0) g/dL Urine Color (YELLOW) Urine Appearance (CLEAR) Urine pH (5-6) Ur Specific [place] (1.005-1.025) Urine Protein (Negative) Urine Ketones (NEGATIVE) Urine Blood (0-5) Roby/ul Urine Nitrite (NEGATIVE) Urine Bilirubin (NEGATIVE) Urine Urobilinogen (0-1) mg/dL Ur Leukocyte Esterase (NEGATIVE) Urine WBC (Auto) (0-5) /HPF Urine RBC (Auto) (0-2) /HPF U Epithel Cells (Auto) (FEW) /HPF Urine Bacteria (Auto) (NEGATIVE) /HPF Urine Mucus (Auto) (NEGATIVE) /HPF Urine Culture Reflexed (NO) Urine Glucose (NEGATIVE) mg/dL Stool Occult Blood (Negative) Slides for Path Review YES ABO Group O Rh Factor NEGATIVE Antibody Screen NEGATIVE (NEGATIVE) 02/15/19 02/15/19 02/15/19 Range/Units 16:52 18:00 18:04 WBC (4.0-10.5) K/mm3 RBC (4.1-5.4) M/mm3 Hgb (12.0-16.0) gm/dl Hct (35-47) % MCV (78-100) fl MCH (26-32) pg MCHC (32-36) g/dl RDW (11.5-14.0) % Plt Count (150-450) K/mm3 MPV (6-9.5) fl Gran % (36.0-66.0) % Eos # (Auto) (0-0.5) Absolute Lymphs (auto) (1.0-4.6) Absolute Monos (auto) (0.0-1.3) Lymphocytes % (24.0-44.0) % Monocytes % (0.0-12.0) % Eosinophils % (0.00-5.0) % Basophils % (0.0-0.4) % Absolute Granulocytes (1.4-6.9) Basophils # (0-0.4) PT (9.95-12.35) SECONDS INR (0.8-3.0) APTT (25.3-37.0) SECONDS Sodium (137-145) mmol/L Sodium Direct 145 (138-146) mmol/L Potassium 3.5 (3.5-4.9) mmol/L Chloride 104 (98-109) mmol/L Carbon Dioxide 32 H (24-29) mmol/L Anion Gap (5-15) MEQ/L BUN (7-17) mg/dL Venous BUN 31 H (8-26) mg/dL Creatinine 1.0 (0.6-1.3) mg/dL Estimated GFR ML/MIN Glucose 64 L (70-105) mg/dL Calcium (8.4-10.2) mg/dL Ionized Calcium 1.19 (1.12-1.32) mmol/L Total Bilirubin (0.2-1.3) mg/dL AST (14-36) U/L ALT (0-35) U/L Alkaline Phosphatase (38-126) U/L Serum Total Protein (6.3-8.2) g/dL Albumin (3.5-5.0) g/dL Urine Color STRAW (YELLOW) Urine Appearance SLIGHTLY CLOUDY (CLEAR) Urine pH 6.0 (5-6) Ur Specific [place] 1.006 (1.005-1.025) Urine Protein NEGATIVE (Negative) Urine Ketones NEGATIVE (NEGATIVE) Urine Blood NEGATIVE (0-5) Roby/ul Urine Nitrite NEGATIVE (NEGATIVE) Urine Bilirubin NEGATIVE (NEGATIVE) Urine Urobilinogen NEGATIVE (0-1) mg/dL Ur Leukocyte Esterase NEGATIVE (NEGATIVE) Urine WBC (Auto) NONE (0-5) /HPF Urine RBC (Auto) NONE (0-2) /HPF U Epithel Cells (Auto) RARE (FEW) /HPF Urine Bacteria (Auto) RARE (NEGATIVE) /HPF Urine Mucus (Auto) SLIGHT (NEGATIVE) /HPF Urine Culture Reflexed NO (NO) Urine Glucose NEGATIVE (NEGATIVE) mg/dL Stool Occult Blood POSITIVE A (Negative) Slides for Path Review ABO Group Rh Factor Antibody Screen (NEGATIVE) 02/16/19 02/16/19 Range/Units 04:00 05:40 WBC 13.1 H (4.0-10.5) K/mm3 RBC 4.43 (4.1-5.4) M/mm3 Hgb 13.0 (12.0-16.0) gm/dl Hct 40.6 (35-47) % MCV 91.6 (78-100) fl MCH 29.3 (26-32) pg MCHC 32.0 (32-36) g/dl RDW 13.9 (11.5-14.0) % Plt Count 258 (150-450) K/mm3 MPV 10.0 H (6-9.5) fl Gran % 74.0 H (36.0-66.0) % Eos # (Auto) 0.06 (0-0.5) Absolute Lymphs (auto) 1.97 (1.0-4.6) Absolute Monos (auto) 1.34 H (0.0-1.3) Lymphocytes % 15.1 L (24.0-44.0) % Monocytes % 10.2 (0.0-12.0) % Eosinophils % 0.5 (0.00-5.0) % Basophils % 0.2 (0.0-0.4) % Absolute Granulocytes 9.69 H (1.4-6.9) Basophils # 0.02 (0-0.4) PT (9.95-12.35) SECONDS INR (0.8-3.0) APTT (25.3-37.0) SECONDS Sodium 142 (137-145) mmol/L Sodium Direct (138-146) mmol/L Potassium 3.6 (3.5-4.9) mmol/L Chloride 109 H (98-109) mmol/L Carbon Dioxide 26 (24-29) mmol/L Anion Gap 11.2 (5-15) MEQ/L BUN 24 H (7-17) mg/dL Venous BUN (8-26) mg/dL Creatinine 0.94 (0.6-1.3) mg/dL Estimated GFR > 60.0 ML/MIN Glucose 85 (70-105) mg/dL Calcium 8.5 (8.4-10.2) mg/dL Ionized Calcium (1.12-1.32) mmol/L Total Bilirubin 0.60 (0.2-1.3) mg/dL AST 19 (14-36) U/L ALT 15 (0-35) U/L Alkaline Phosphatase 55 (38-126) U/L Serum Total Protein 6.0 L (6.3-8.2) g/dL Albumin 3.4 L (3.5-5.0) g/dL Urine Color (YELLOW) Urine Appearance (CLEAR) Urine pH (5-6) Ur Specific [place] (1.005-1.025) Urine Protein (Negative) Urine Ketones (NEGATIVE) Urine Blood (0-5) Roby/ul Urine Nitrite (NEGATIVE) Urine Bilirubin (NEGATIVE) Urine Urobilinogen (0-1) mg/dL Ur Leukocyte Esterase (NEGATIVE) Urine WBC (Auto) (0-5) /HPF Urine RBC (Auto) (0-2) /HPF U Epithel Cells (Auto) (FEW) /HPF Urine Bacteria (Auto) (NEGATIVE) /HPF Urine Mucus (Auto) (NEGATIVE) /HPF Urine Culture Reflexed (NO) Urine Glucose (NEGATIVE) mg/dL Stool Occult Blood (Negative) Slides for Path Review ABO Group Rh Factor Antibody Screen (NEGATIVE) Accuchecks Date 02/16/19 Date 02/16/19 Date 02/15/19 Time 06:00 Time 22:00 Accucheck Value: 85 Accucheck Value: 73 Accucheck Value: 72 Assessment/Plan (1) Lower GI bleed Current Visit: Yes Status: Acute Assessment & Plan: no prior h/o GI bleed most likely due to diverticulosis Surgery consulted and recommends conservative approach serial H/H monitor cont IVF PPI as GI prophylaxis Code(s): K92.2 - GASTROINTESTINAL HEMORRHAGE, UNSPECIFIED (2) Type 2 diabetes mellitus Current Visit: No Status: Chronic Qualifiers: Diabetes mellitus long-term insulin use: with long-term use Diabetes mellitus complication detail: with other circulatory complications Assessment & Plan: FS and ISS cont home dose insulin and meds (3) Hypertension Current Visit: Yes Status: Acute Assessment & Plan: BP controlled resume pt home meds if BP stable Code(s): I10 - ESSENTIAL (PRIMARY) HYPERTENSION
[2019-02-16] MEDS: POTASSIUM CHLORIDE 20 mEq IN WATER 100ML 20 MEQ/100 ML BAG IV SCH ×2 (12:03→14:47)
[2019-02-16 16:18] LABS: BASOPHIL % 0.1 % (0.0-0.4); Basophil (Absolute #) 0.02 (0-0.4); Eosinophil % 0.7 % (0.00-5.0); Eosinophil (Absolute #) 0.11 (0-0.5); Granulocyte Absolute (ANC) 11.94 (1.4-6.9); Granulocytes % 74.1 % (36.0-66.0); Hematocrit 41.2 % (35-47); Hemoglobin 13.2 gm/dl (12.0-16.0); Lymphocyte (Absolute #) 2.48 (1.0-4.6); Lymphocytes % 15.4 % (24.0-44.0); Mean Cell Volume 92.2 fl (78-100); Mean Corpuscular Hemoglobin 29.5 pg (26-32); Mean Platelet Volume 9.7 fl (6-9.5); Monocyte (Absolute #) 1.57 (0.0-1.3); Monocytes % 9.7 % (0.0-12.0); Platelet Count 254 K/mm3 (150-450); Red Blood Count 4.47 M/mm3 (4.1-5.4); Red Cell Distribution Width 13.8 % (11.5-14.0); White Blood Count 16.1 K/mm3 (4.0-10.5)
[2019-02-16] MEDS ORDERED: Levofloxacin 500MG/100ML D5W 500 MG/100 ML BAG IV SCH (22:00)
[2019-02-16 22:13] LABS: BASOPHIL % 0.2 % (0.0-0.4); Basophil (Absolute #) 0.03 (0-0.4); Eosinophil % 1.3 % (0.00-5.0); Eosinophil (Absolute #) 0.17 (0-0.5); Granulocyte Absolute (ANC) 9.13 (1.4-6.9); Granulocytes % 71.3 % (36.0-66.0); Hematocrit 35.6 % (35-47); Hemoglobin 11.4 gm/dl (12.0-16.0); Lymphocyte (Absolute #) 2.32 (1.0-4.6); Lymphocytes % 18.1 % (24.0-44.0); Mean Cell Volume 92.5 fl (78-100); Mean Corpuscular Hemoglobin 29.6 pg (26-32); Mean Platelet Volume 9.4 fl (6-9.5); Monocyte (Absolute #) 1.17 (0.0-1.3); Monocytes % 9.1 % (0.0-12.0); Platelet Count 218 K/mm3 (150-450); Red Blood Count 3.85 M/mm3 (4.1-5.4); Red Cell Distribution Width 13.7 % (11.5-14.0); White Blood Count 12.8 K/mm3 (4.0-10.5)
[2019-02-17 04:28] VITALS: O2SAT 96
[2019-02-17] MEDS: Sodium Chloride 0.9% 1000 ML 1,000 ML IV SCH (06:07)
[2019-02-17 06:28] LABS: BASOPHIL % 0.2 % (0.0-0.4); Basophil (Absolute #) 0.02 (0-0.4); Eosinophil % 2.4 % (0.00-5.0); Eosinophil (Absolute #) 0.28 (0-0.5); Granulocyte Absolute (ANC) 8.06 (1.4-6.9); Granulocytes % 69.2 % (36.0-66.0); Hematocrit 37.6 % (35-47); Hemoglobin 11.9 gm/dl (12.0-16.0); Lymphocyte (Absolute #) 2.17 (1.0-4.6); Lymphocytes % 18.6 % (24.0-44.0); Mean Cell Volume 91.7 fl (78-100); Mean Corpuscular Hgb Concent. 31.6 g/dl (32-36); Mean Platelet Volume 9.8 fl (6-9.5); Monocyte (Absolute #) 1.12 (0.0-1.3); Monocytes % 9.6 % (0.0-12.0); Platelet Count 239 K/mm3 (150-450); Red Cell Distribution Width 13.6 % (11.5-14.0); White Blood Count 11.7 K/mm3 (4.0-10.5)
[2019-02-17 09:28] VITALS: BP 126/58; PULSE 74
--- NOTE | 2019-02-19 14:27 | DS ---
DISCHARGE DIAGNOSIS: RECTAL BLEEDING. HOSPITAL COURSE: This is a 68 year-old white female who reports problems with constipation over the past few days. She attempted to have a bowel movement. She reports she had a small bowel movement but afterwards she had bleeding which was bright red in nature. She reports she had several more times where she passed blood but no normal bowel movements. She was admitted to the hospital for evaluation and management. She was seen by surgery who elected for conservative management at this time. By the morning of 02/17/2019, she was feeling good and ambulating fine, taking food p.o. and fluids as well. She had just a smear of blood recently. Her hemoglobin dropped from 13.9 to 11.9. She has been stable hemodynamically. The patient was discussed having colonoscopy done as an outpatient. She was discharged home at this time to follow up with myself, Dr. Ceballos or Dr. Faith Watson in [place], [place] for her routine follow up care at which time her colonoscopy can be arranged. She has been instructed to come back to the hospital if she has any recurrence of the bleeding especially if she has any nausea, diaphoresis or feeling faint. She reports that her daughter does not live with her but lives just across the street from her and can check in on her on a regular basis. The patient will be discharged home on her regular home medications with instructions also not to take any aspirin, ibuprofen or Aleve.
== END 2019-02-17 11:30 | disposition home or self-care (01) ==
LOC: ED 16:00 → MED SURG 21:05
PROVIDERS: ADMIT Family Medicine; ATTEND Family Medicine
DX: K62.5 Hemorrhage of anus and rectum (principal); E11.9 Type 2 diabetes mellitus without complications; I10 Essential (primary) hypertension; Z79.899 Other long term (current) drug therapy; I25.10 Atherosclerotic heart disease of native coronary artery without angina pectoris; Z95.1 Presence of aortocoronary bypass graft
CPT/HCPCS: 36000; 36415; 80047; 80053; 81001; 82272; 82962; 83036; 84132; 85025; 85610; 85730; 86850; 86900; 86901; 93268; 94762; 96360; 96361; 96365; 99285; G0378; J1956; J3480; A9270-GY

== ENCOUNTER 2020-02-27 15:02 | Emergency (ER) | payer MEDICARE ==
[2020-02-27 15:48] VITALS: O2SAT 99
--- NOTE | 2020-02-27 16:47 | XRAY ---
Indication: Difficulty breathing. Elevated d-dimer. Multiple contiguous axial images obtained through the chest using 100 cc Isovue-370 contrast and PE protocol. Comparison: January 06, 2017. There is adequate opacification of the pulmonary arteries. No pulmonary embolus. Heart is not enlarged again demonstrating CABG surgery. Aorta is normal in course and caliber again with minimal scattered calcifications. No pathologic mediastinal/hilar lymphadenopathy. Lungs again demonstrates minimal bibasilar dependent atelectasis, right middle lobe fibrosis/scarring, and left lower lobe calcified granuloma. No suspicious pulmonary mass, infiltrate, or effusion. Bony thorax intact again with flowing osteophytes throughout the spine. Limited upper abdomen again demonstrates calcified splenic granulomas. Impression: 1. Negative pulmonary embolus. No new or acute cardiopulmonary abnormalities. 2. Again evidence for old granulomatous disease.
--- NOTE | 2020-02-27 17:01 | ERPHSYRPT ---
- History of Present Illness Time Seen by Provider: 02/27/20 15:35 Patient Subjective Stated Complaint: Abnormal labs Triage Nursing Assessment: Patient ambulated back to ED and transferred self to bed. Patient A+O X3. Patient's skin pink, warm and dry. Patient states she was seen in [facility] care this am and had labs and chest x-ray done. Patient received phone call from Shelly LEDESMA to report to ER due to abnormal D-dimer. Patient denies pain or discomfort. Patient states she has occasional shortness or breath. lungs clear a/p margaret. Patient has 2+ Edema to BLE. Physician History: Ms. Ulloa is a 69-year-old female who presented to the [facility] with a complaint of shortness of breath. She did obtain a chest x-ray which was essentially negative and some other lab work which was likewise normal other than a d-dimer which was elevated and she was sent to the ER for further evaluation. Timing/Duration: today Activities at Onset: none Severity of Pain-Max: none Severity of Pain-Current: none Modifying Factors: Improves With: nothing Previous symptoms: no prior history Allergies/Adverse Reactions: ketorolac [From Toradol] Adverse Reaction (Verified 02/27/20 15:25) Home Medications: Metoprolol Tartrate 25 mg [Lopressor 25MG Tab] 25 mg PO BID 01/06/17 [ History] Enalapril Maleate 20 mg PO DAILY 02/13/19 [History] Insulin NPH Human Isophane [Novolin N] 35 units SQ BID 02/13/19 [History] Insulin Regular, Human [Novolin R] 17 units SQ UD 02/13/19 [History] Rosuvastatin Calcium [Crestor] 10 mg PO DAILY 02/13/19 [History] Furosemide [Lasix] 10 mg PO DAILY 02/15/19 [History] Insulin Regular, Human [NovoLIN R] 10 unit IJ UD 02/15/19 [History] Hx Tetanus, Diphtheria Vaccination/Date Given: No Hx Influenza Vaccination/Date Given: No Hx Pneumococcal Vaccination/Date Given: No Immunizations Up to Date: Yes Travel Risk - International Travel Have you traveled outside of the country in past 3 weeks: No Have you or anyone close to you been diagnosed with or: No Do your reside in a community with a known COVID-19 case?: Yes If Yes where:: [facility] - Coronavirus Screening Has patient experienced Coronavirus symptoms: No - Review of Systems Constitutional: No Fever, No Chills Eyes: No Symptoms Ears, Nose, & Throat: No Symptoms Respiratory: Cough, Dyspnea Cardiac: No Chest Pain, No Edema, No Syncope Abdominal/Gastrointestinal: No Abdominal Pain, No Nausea, No Vomiting, No Diarrhea Genitourinary Symptoms: No Dysuria Musculoskeletal: No Back Pain, No Neck Pain Skin: No Rash Neurological: No Dizziness, No Focal Weakness, No Sensory Changes Psychological: No Symptoms Endocrine: No Symptoms All Other Systems: Reviewed and Negative - Past Medical History Pertinent Past Medical History: Yes Neurological History: No Pertinent History ENT History: No Pertinent History Cardiac History: Coronary Artery Disease, Hypertension Respiratory History: No Pertinent History Endocrine Medical History: Diabetes Type II Musculoskeletal History: No Pertinent History GI Medical History: No Pertinent History History: No Pertinent History Psycho-Social History: No Pertinent History Female Reproductive Disorders: No Pertinent History - Past Surgical History Past Surgical History: Yes Neuro Surgical History: No Pertinent History Cardiac: CABG, Cardiac Catheterization Respiratory: No Pertinent History Gastrointestinal: No Pertinent History Genitourinary: No Pertinent History Musculoskeletal: Other Female Surgical History: Hysterectomy, Section Other Surgical History: abd tumor removed, carpal tunnel - Social History Smoking Status: Former smoker Exposure to second hand smoke: No Drug Use: none Patient Lives Alone: Yes - Nursing Vital Signs Nursing Vital Signs: Initial Vital Signs Temperature 98.2 F 02/27/20 15:26 Pulse Rate 60 02/27/20 15:26 Respiratory Rate 20 02/27/20 15:26 Blood Pressure 150/51 02/27/20 15:26 O2 Sat by Pulse Oximetry 99 02/27/20 15:26 Pain Scale Pain Intensity 0 - Physical Exam General Appearance: no apparent distress, alert Eye Exam: PERRL/EOMI, eyes nml inspection Ears, Nose, Throat Exam: normal ENT inspection, pharynx normal, moist mucous membranes Neck Exam: normal inspection, non-tender, supple, full range of motion Respiratory Exam: normal breath sounds, lungs clear, No respiratory distress Cardiovascular Exam: regular rate/rhythm, normal heart sounds Gastrointestinal/Abdomen Exam: soft, No tenderness, No mass Back Exam: normal inspection, normal range of motion, No CVA tenderness, No vertebral tenderness Extremity Exam: normal inspection, normal range of motion, pelvis stable Neurologic Exam: alert, oriented x 3, cooperative, normal mood/affect, nml cerebellar function, sensation nml, No motor deficits Skin Exam: normal color, warm, dry SpO2: 99 - Course Nursing assessment & vital signs reviewed: Yes - CT Exams Chest CT Interpretation: Negative Ordered Tests: Active Orders 24 hr Category Date Time Status CHEST WITH CONTRAST [CT] Stat Exams 02/27/20 15:40 Completed - Progress Progress: improved - Departure Departure Disposition: Home Clinical Impression: Bronchitis Condition: Stable Critical Care Time: No Referrals: LEEANN CHRISTIANSEN [Primary Care Provider] - Prescriptions: Azithromycin 250 mg [Zithromax 250 MG TABLET] 250 mg PO ZPACK #6 tablet
[2020-02-27 17:04] VITALS: BP 136/57; PULSE 73
== END 2020-02-27 17:28 | disposition home or self-care (01) ==
LOC: ED 15:02
DX: J40 Bronchitis, not specified as acute or chronic (principal); Z79.899 Other long term (current) drug therapy
CPT/HCPCS: 36415; 71046; 71260; 80053; 83880; 85025; 85379; 99283

== ENCOUNTER 2020-03-13 02:57 | Observation (INO) | payer MEDICARE ==
--- NOTE | 2020-03-13 03:24 | ERPHSYRPT ---
- History of Present Illness Time Seen by Provider: 03/13/20 03:10 Source: patient Exam Limitations: no limitations Patient Subjective Stated Complaint: Patient states " I have been SOB for a week." Patient states " I have been to [facility] times 2 in last 2 weeks. My last visit was last Tuesday when they started me on lasix 20MG. I had a telephone conference today with my PCP Dr. Christiansen and she increased my lasix to 40MG in which i havent started today. Triage Nursing Assessment: Patient arrived to ER via ambulance. Patient A/O times 4. Patient answers Physician History: Patient is a 69-year-old female presents to our ED with complaints of shortness of breath. Shortness of breath has been ongoing and progressive for the past 2 weeks. Patient had quadruple bypass 2005. 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 Patient has not seen Dr. contreras in some time due to insurance problems. Patient is scheduled to see Dr. Conroy but has not been able to see him due to the pandemic. Patient was seen at Allergies/Adverse Reactions: ketorolac [From Toradol] Adverse Reaction (Verified 03/13/20 03:13) Home Medications: Metoprolol Tartrate 25 mg [Lopressor 25MG Tab] 25 mg PO BID 01/06/17 [ History] Enalapril Maleate 20 mg PO DAILY 02/13/19 [History] Insulin NPH Human Isophane [Novolin N] 35 units SQ BID 02/13/19 [History] Insulin Regular, Human [Novolin R] 17 units SQ UD 02/13/19 [History] Rosuvastatin Calcium [Crestor] 10 mg PO DAILY 02/13/19 [History] Furosemide [Lasix] 40 mg PO DAILY 02/15/19 [History] Insulin Regular, Human [NovoLIN R] 10 unit IJ UD 02/15/19 [History] Hx Tetanus, Diphtheria Vaccination/Date Given: Yes Hx Influenza Vaccination/Date Given: No Hx Pneumococcal Vaccination/Date Given: Yes Immunizations Up to Date: Yes Travel Risk - International Travel Have you traveled outside of the country in past 3 weeks: No Have you or anyone close to you been diagnosed with or: No Do your reside in a community with a known COVID-19 case?: Yes If Yes where:: [facility] - Coronavirus Screening Has patient experienced Coronavirus symptoms: Yes Symptoms experienced: respiratory symptoms (i.e.Cought,shortness of breath) - Past Medical History Pertinent Past Medical History: Yes Neurological History: No Pertinent History ENT History: No Pertinent History Cardiac History: Coronary Artery Disease, Hypertension Respiratory History: No Pertinent History Endocrine Medical History: Diabetes Type II Musculoskeletal History: No Pertinent History GI Medical History: No Pertinent History History: No Pertinent History Psycho-Social History: No Pertinent History Female Reproductive Disorders: No Pertinent History - Past Surgical History Past Surgical History: Yes Neuro Surgical History: No Pertinent History Cardiac: CABG, Cardiac Catheterization Respiratory: No Pertinent History Gastrointestinal: No Pertinent History Genitourinary: No Pertinent History Musculoskeletal: Other Female Surgical History: Hysterectomy, Section Other Surgical History: abd tumor removed, carpal tunnel - Social History Smoking Status: Former smoker Exposure to second hand smoke: No Drug Use: none Patient Lives Alone: Yes - Female History Hx Last Menstrual Period: POST - Nursing Vital Signs Nursing Vital Signs: Initial Vital Signs Temperature 98.0 F 03/13/20 03:00 Pulse Rate 81 03/13/20 03:00 Respiratory Rate 20 03/13/20 03:00 Blood Pressure 146/60 03/13/20 03:00 O2 Sat by Pulse Oximetry 98 03/13/20 03:00 Pain Scale Pain Intensity 4 - Physical Exam SpO2: 98 Ordered Tests: Active Orders 24 hr Category Date Time Status Talent Recruiter STAT Care 03/13/20 03:05 Active EKG-ER Only STAT Care 03/13/20 03:03 Active IV Insertion STAT Care 03/13/20 03:03 Active Isolation, Initiate & Maintain Q4H Care 03/13/20 03:12 Active Pulse Oximetry (ED) STAT Care 03/13/20 03:03 Active CHEST 1 VIEW (PORTABLE) Stat Exams 03/13/20 03:04 Taken CBC W DIFF Stat Lab 03/13/20 03:35 Completed CMP Stat Lab 03/13/20 03:35 Completed NT PRO BNP Stat Lab 03/13/20 03:35 Completed TROPONIN Q3H Lab 03/13/20 03:35 Completed TROPONIN Q3H Lab 03/13/20 06:15 Ordered TROPONIN Q3H Lab 03/13/20 09:15 Ordered TROPONIN Q3H Lab 03/13/20 12:15 Ordered TROPONIN Q3H Lab 03/13/20 15:15 Ordered Urine Triage Profile Stat Lab 03/13/20 04:00 Received Lab/Rad Data: Laboratory Result Diagrams 03/13/20 03:35 03/13/20 03:35 Laboratory Results 03/13/20 03/13/20 03/13/20 Range/Units 03:35 03:35 03:35 WBC 10.4 (4.0-10.5) K/mm3 RBC 4.46 (4.1-5.4) M/mm3 Hgb 12.9 (12.0-16.0) gm/dl Hct 40.1 (35-47) % MCV 89.9 (78-100) fl MCH 28.9 (26-32) pg MCHC 32.2 (32-36) g/dl RDW 14.2 H (11.5-14.0) % Plt Count 254 (150-450) K/mm3 MPV 9.3 (7.5-11.0) fl Gran % 70.6 H (36.0-66.0) % Eos # (Auto) 0.13 (0-0.5) Absolute Lymphs (auto) 1.78 (1.0-4.6) Absolute Monos (auto) 1.14 (0.0-1.3) Lymphocytes % 17.0 L (24.0-44.0) % Monocytes % 10.9 (0.0-12.0) % Eosinophils % 1.2 (0.00-5.0) % Basophils % 0.3 (0.0-0.4) % Absolute Granulocytes 7.36 H (1.4-6.9) Basophils # 0.03 (0-0.4) Sodium 143 (137-145) mmol/L Potassium 3.6 (3.5-5.1) mmol/L Chloride 108 H (98-107) mmol/L Carbon Dioxide 26 (22-30) mmol/L Anion Gap 12.0 (5-15) MEQ/L BUN 22 H (7-17) mg/dL Creatinine 0.95 (0.52-1.04) mg/dL Estimated GFR > 60.0 ML/MIN Glucose 91 (74-106) mg/dL Calcium 9.1 (8.4-10.2) mg/dL Total Bilirubin 0.50 (0.2-1.3) mg/dL AST 24 (14-36) U/L ALT 18 (0-35) U/L Alkaline Phosphatase 92 (38-126) U/L Troponin I < 0.012 (0.000-0.034) ng/mL NT-Pro-B Natriuret Pep 51.1 (0-900) pg/mL Serum Total Protein 6.8 (6.3-8.2) g/dL Albumin 3.8 (3.5-5.0) g/dL - Departure Referrals: LEEANN CHRISTIANSEN [Primary Care Provider] -
[2020-03-13 03:41] LABS: Absolute Neutrophil Ct (ANC) 7.36 (1.4-6.9); BASOPHIL % 0.3 % (0.0-0.4); Basophil (Absolute #) 0.03 (0-0.4); Eosinophil % 1.2 % (0.00-5.0); Eosinophil (Absolute #) 0.13 (0-0.5); Hematocrit 40.1 % (35-47); Hemoglobin 12.9 gm/dl (12.0-16.0); Lymphocyte (Absolute #) 1.78 (1.0-4.6); Mean Cell Volume 89.9 fl (78-100); Mean Corpuscular Hemoglobin 28.9 pg (26-32); Mean Corpuscular Hgb Concent. 32.2 g/dl (32-36); Mean Platelet Volume 9.3 fl (7.5-11.0); Monocyte (Absolute #) 1.14 (0.0-1.3); Monocytes % 10.9 % (0.0-12.0); Neutrophil % 70.6 % (36.0-66.0); Platelet Count 254 K/mm3 (150-450); Red Blood Count 4.46 M/mm3 (4.1-5.4); Red Cell Distribution Width 14.2 % (11.5-14.0); White Blood Count 10.4 K/mm3 (4.0-10.5)
[2020-03-13 04:01] LABS: ALBUMIN 3.8 g/dL (3.5-5.0); ALKALINE PHOSPHATASE 92 U/L (38-126); BLOOD UREA NITROGEN 22 mg/dL (7-17); CHLORIDE 108 mmol/L (98-107); Calcium 9.1 mg/dL (8.4-10.2); Carbon Dioxide 26 mmol/L (22-30); Creatinine 1 0.95 mg/dL (0.52-1.04); Glucose 91 mg/dL (74-106); NT PRO BNP 51.1 pg/mL (0-900); Potassium 3.6 mmol/L (3.5-5.1); SGOT/AST 24 U/L (14-36); SGPT/ALT 18 U/L (0-35); SODIUM 143 mmol/L (137-145); Total Protein 6.8 g/dL (6.3-8.2)
--- NOTE | 2020-03-13 04:26 | ERPHSYRPT ---
- History of Present Illness Time Seen by Provider: 03/13/20 03:10 Historian: patient Patient Subjective Stated Complaint: Patient states " I have been SOB for a week." Patient states " I have been to [facility] times 2 in last 2 weeks. My last visit was last Tuesday when they started me on lasix 20MG. I had a telephone conference today with my PCP Dr. Watson and she increased my lasix to 40MG in which i havent started today. Triage Nursing Assessment: Patient arrived to ER via ambulance. Patient A/O times 4. Patient answers questions appropriatley. Patient states she has been having SOB for around a week. Patient 02 sat upon arrival 99% room air. Patient with no S/S of respiratory distress. Cap refill < 3 seconds. Lungs clear bilateral A/P throughout. Patient with no jugular vein distention. Skin turgor < 3 seconds. Oral mucosa clean, pink, moist. No S/S of dehydration noted. Non- pitting edema noted to bilateral lower extremities. No further edema noted. + Pedal pulses bilateral. Apical heart tones regular and strong upon auscultation. Patient with complaints of mild center back pain. Physician History: Patient is a 69-year-old female presents to our ED with complaints of shortness of breath. Shortness of breath has been ongoing and progressive for the past 2 weeks. Patient had quadruple bypass 2005. 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 Patient has not seen Dr. contreras in some time due to insurance problems. Patient is scheduled to see Dr. Conroy but has not been able to see him due to the pandemic. Patient was seen at [facility] last Tuesday. She was diagnosed with possible CHF according to patient. Patient was started on Lasix 20 mg daily. Patient's shortness of breath progressed. She called her primary care doctor, Dr. Watson who advised increase her Lasix to 40 mg. Patient has not taken the increase Lasix at this time. Patient also complains of chest pain rating across her chest. No neck pain shoulder pain or back pain. No nausea vomiting or diaphoresis. No diarrhea. No trauma. Symptoms are mild to moderate intensity. No specific worsening improving factors. Patient voices no other complaints at this time. Timing/Duration: week(s) Activities at Onset: none Quality: aching Location: substernal Chest Pain Radiation: no radiation Severity of Pain-Max: moderate Severity of Pain-Current: moderate Modifying Factors: Improves With: breathing Associated Symptoms: shortness of breath Prior Chest Pain/Cardiac Workup: no prior cardiac workup Aspirin Treatment Today: 325 mg x 1 Allergies/Adverse Reactions: ketorolac [From Toradol] Adverse Reaction (Verified 03/13/20 03:13) Home Medications: Metoprolol Tartrate 25 mg [Lopressor 25MG Tab] 25 mg PO BID 01/06/17 [ History] Enalapril Maleate 20 mg PO DAILY 02/13/19 [History] Insulin NPH Human Isophane [Novolin N] 35 units SQ BID 02/13/19 [History] Insulin Regular, Human [Novolin R] 17 units SQ UD 02/13/19 [History] Rosuvastatin Calcium [Crestor] 10 mg PO DAILY 02/13/19 [History] Furosemide [Lasix] 40 mg PO DAILY 02/15/19 [History] Insulin Regular, Human [NovoLIN R] 10 unit IJ UD 02/15/19 [History] Hx Tetanus, Diphtheria Vaccination/Date Given: Yes Hx Influenza Vaccination/Date Given: No Hx Pneumococcal Vaccination/Date Given: Yes Immunizations Up to Date: Yes Travel Risk - International Travel Have you traveled outside of the country in past 3 weeks: No Have you or anyone close to you been diagnosed with or: No Do your reside in a community with a known COVID-19 case?: Yes If Yes where:: [facility] - Coronavirus Screening Has patient experienced Coronavirus symptoms: Yes Symptoms experienced: respiratory symptoms (i.e.Cought,shortness of breath) - Review of Systems Constitutional: No Fever, No Chills Eyes: No Symptoms Ears, Nose, & Throat: No Symptoms Respiratory: No Symptoms, No Cough, No Dyspnea Cardiac: No Symptoms, No Chest Pain, No Edema, No Syncope Abdominal/Gastrointestinal: No Symptoms, No Abdominal Pain, No Nausea, No Vomiting, No Diarrhea Genitourinary Symptoms: No Symptoms, No Dysuria Musculoskeletal: No Symptoms, No Back Pain, No Neck Pain Skin: No Symptoms, No Rash Neurological: No Symptoms, No Dizziness, No Focal Weakness, No Sensory Changes Psychological: No Symptoms Endocrine: No Symptoms Hematologic/Lymphatic: No Symptoms Immunological/Allergic: No Symptoms All Other Systems: Reviewed and Negative - Past Medical History Pertinent Past Medical History: Yes Neurological History: No Pertinent History ENT History: No Pertinent History Cardiac History: Coronary Artery Disease, Hypertension Respiratory History: No Pertinent History Endocrine Medical History: Diabetes Type II Musculoskeletal History: No Pertinent History GI Medical History: No Pertinent History History: No Pertinent History Psycho-Social History: No Pertinent History Female Reproductive Disorders: No Pertinent History - Past Surgical History Past Surgical History: Yes Neuro Surgical History: No Pertinent History Cardiac: CABG, Cardiac Catheterization Respiratory: No Pertinent History Gastrointestinal: No Pertinent History Genitourinary: No Pertinent History Musculoskeletal: Other Female Surgical History: Hysterectomy, Section Other Surgical History: abd tumor removed, carpal tunnel - Social History Smoking Status: Former smoker Exposure to second hand smoke: No Drug Use: none Patient Lives Alone: Yes - Female History Hx Last Menstrual Period: POST - Nursing Vital Signs Nursing Vital Signs: Initial Vital Signs Temperature 98.0 F 03/13/20 03:00 Pulse Rate 81 03/13/20 03:00 Respiratory Rate 20 03/13/20 03:00 Blood Pressure 146/60 03/13/20 03:00 O2 Sat by Pulse Oximetry 98 03/13/20 03:00 Pain Scale Pain Intensity 2 - Physical Exam General Appearance: no apparent distress, alert Eye Exam: PERRL/EOMI, eyes nml inspection Ears, Nose, Throat Exam: normal ENT inspection, moist mucous membranes Neck Exam: normal inspection, non-tender, supple, full range of motion Respiratory Exam: normal breath sounds, lungs clear, No respiratory distress Cardiovascular Exam: regular rate/rhythm, normal heart sounds Gastrointestinal/Abdomen Exam: soft, No tenderness, No mass Back Exam: normal inspection, No CVA tenderness, No vertebral tenderness Extremity Exam: normal inspection, normal range of motion, swelling (Trace pitting edema bilateral lower extremities.) Neurologic Exam: alert, oriented x 3, cooperative, normal mood/affect, sensation nml, No motor deficits Skin Exam: normal color, warm, dry SpO2 Interpretation: normal SpO2: 96 O2 Delivery: Room Air - Course Nursing assessment & vital signs reviewed: Yes EKG Interpreted by Me: RATE, Sinus Rhythm, NORMAL AXIS, NORMAL INTERVALS - Radiology Exams Chest X-ray Interpretation: Interpreted by me (No pleural effusion, no consolidation, no infiltrate, no pneumothorax) - CT Exams Chest CT Interpretation: Other (No acute findings, thyroid nodule, no PE. ) Ordered Tests: Active Orders 24 hr Category Date Time Status Web[employer] Architect STAT Care 03/13/20 03:05 Active EKG-ER Only STAT Care 03/13/20 03:03 Active IV Insertion STAT Care 03/13/20 03:03 Active Isolation, Initiate & Maintain Q4H Care 03/13/20 03:12 Active Pulse Oximetry (ED) STAT Care 03/13/20 03:03 Active CHEST 1 VIEW (PORTABLE) Stat Exams 03/13/20 03:04 Taken CHEST WITH CONTRAST [CT] Stat Exams 03/13/20 04:46 Taken CBC W DIFF Stat Lab 03/13/20 03:35 Completed CMP Stat Lab 03/13/20 03:35 Completed D-DIMER QUANTITATIVE Stat Lab 03/13/20 03:30 Completed NT PRO BNP Stat Lab 03/13/20 03:35 Completed TROPONIN Q3H Lab 03/13/20 03:35 Completed TROPONIN Q3H Lab 03/13/20 06:20 Received TROPONIN Q3H Lab 03/13/20 09:15 Ordered TROPONIN Q3H Lab 03/13/20 12:15 Ordered TROPONIN Q3H Lab 03/13/20 15:15 Ordered Urine Triage Profile Stat Lab 03/13/20 04:00 Completed Transfer Order Routine Transfer 03/13/20 Ordered Lab/Rad Data: Laboratory Result Diagrams 03/13/20 03:35 03/13/20 03:35 Laboratory Results 03/13/20 03/13/20 03/13/20 Range/Units 04:00 03:35 03:35 WBC (4.0-10.5) K/mm3 RBC (4.1-5.4) M/mm3 Hgb (12.0-16.0) gm/dl Hct (35-47) % MCV (78-100) fl MCH (26-32) pg MCHC (32-36) g/dl RDW (11.5-14.0) % Plt Count (150-450) K/mm3 MPV (7.5-11.0) fl Gran % (36.0-66.0) % Eos # (Auto) (0-0.5) Absolute Lymphs (auto) (1.0-4.6) Absolute Monos (auto) (0.0-1.3) Lymphocytes % (24.0-44.0) % Monocytes % (0.0-12.0) % Eosinophils % (0.00-5.0) % Basophils % (0.0-0.4) % Absolute Granulocytes (1.4-6.9) Basophils # (0-0.4) D-Dimer (215-500) ng/mL Sodium 143 (137-145) mmol/L Potassium 3.6 (3.5-5.1) mmol/L Chloride 108 H (98-107) mmol/L Carbon Dioxide 26 (22-30) mmol/L Anion Gap 12.0 (5-15) MEQ/L BUN 22 H (7-17) mg/dL Creatinine 0.95 (0.52-1.04) mg/dL Estimated GFR > 60.0 ML/MIN Glucose 91 (74-106) mg/dL Calcium 9.1 (8.4-10.2) mg/dL Total Bilirubin 0.50 (0.2-1.3) mg/dL AST 24 (14-36) U/L ALT 18 (0-35) U/L Alkaline Phosphatase 92 (38-126) U/L Troponin I < 0.012 (0.000-0.034) ng/mL NT-Pro-B Natriuret Pep 51.1 (0-900) pg/mL Serum Total Protein 6.8 (6.3-8.2) g/dL Albumin 3.8 (3.5-5.0) g/dL Urine Opiates Level NEGATIVE (NEGATIVE) Ur Methadone NEGATIVE (NEGATIVE) Urine Barbiturates NEGATIVE (NEGATIVE) Ur Phencyclidine (PCP) NEGATIVE (NEGATIVE) Urine Amphetamine NEGATIVE (NEGATIVE) U Benzodiazepine Level NEGATIVE (NEGATIVE) Urine Cocaine NEGATIVE (NEGATIVE) Urine Marijuana (THC) NEGATIVE (NEGATIVE) 03/13/20 03/13/20 Range/Units 03:35 03:30 WBC 10.4 (4.0-10.5) K/mm3 RBC 4.46 (4.1-5.4) M/mm3 Hgb 12.9 (12.0-16.0) gm/dl Hct 40.1 (35-47) % MCV 89.9 (78-100) fl MCH 28.9 (26-32) pg MCHC 32.2 (32-36) g/dl RDW 14.2 H (11.5-14.0) % Plt Count 254 (150-450) K/mm3 MPV 9.3 (7.5-11.0) fl Gran % 70.6 H (36.0-66.0) % Eos # (Auto) 0.13 (0-0.5) Absolute Lymphs (auto) 1.78 (1.0-4.6) Absolute Monos (auto) 1.14 (0.0-1.3) Lymphocytes % 17.0 L (24.0-44.0) % Monocytes % 10.9 (0.0-12.0) % Eosinophils % 1.2 (0.00-5.0) % Basophils % 0.3 (0.0-0.4) % Absolute Granulocytes 7.36 H (1.4-6.9) Basophils # 0.03 (0-0.4) D-Dimer 910 H* (215-500) ng/mL Sodium (137-145) mmol/L Potassium (3.5-5.1) mmol/L Chloride (98-107) mmol/L Carbon Dioxide (22-30) mmol/L Anion Gap (5-15) MEQ/L BUN (7-17) mg/dL Creatinine (0.52-1.04) mg/dL Estimated GFR ML/MIN Glucose (74-106) mg/dL Calcium (8.4-10.2) mg/dL Total Bilirubin (0.2-1.3) mg/dL AST (14-36) U/L ALT (0-35) U/L Alkaline Phosphatase (38-126) U/L Troponin I (0.000-0.034) ng/mL NT-Pro-B Natriuret Pep (0-900) pg/mL Serum Total Protein (6.3-8.2) g/dL Albumin (3.5-5.0) g/dL Urine Opiates Level (NEGATIVE) Ur Methadone (NEGATIVE) Urine Barbiturates (NEGATIVE) Ur Phencyclidine (PCP) (NEGATIVE) Urine Amphetamine (NEGATIVE) U Benzodiazepine Level (NEGATIVE) Urine Cocaine (NEGATIVE) Urine Marijuana (THC) (NEGATIVE) - Progress Progress: improved Air Movement: fair Progress Note: 03/13/20 06:45 Patient reassessed. She continues to feel short of breath. We ambulated patient in our ED. Patient became profoundly dizzy near syncope. D-dimer was positive. CTA negative for acute pathology. No PE. Initial troponin negative. This is patient's second ED visit. In light of patient's cardiac risk factors, symptomology we decided to admit patient. Spoke to Dr. Delcid who advised speaking to Dr. Jackson as this may be an atypical presentation of codeine. After discussion with Dr. FORBES we decided on admitting patient took over the floor and swabbing her accordingly. Plan of care discussed with patient. She agrees to admission to [facility] for further evaluation and treatment. Blood Culture(s) Obtained: No Antibiotics given: No - Departure Departure Disposition: Home Clinical Impression: Shortness of breath, Thyroid nodule Condition: Stable Critical Care Time: No Referrals: LEEANN WATSON [Primary Care Provider] -
[2020-03-13 04:27] LABS: Amphetamine,Urine NEGATIVE (NEGATIVE); Barbiturate,Urine NEGATIVE (NEGATIVE); Benzodiazepine,Urine NEGATIVE (NEGATIVE); Cocaine,Urine NEGATIVE (NEGATIVE); Methadone,Urine NEGATIVE (NEGATIVE); Opiate,Urine NEGATIVE (NEGATIVE); PCP,Urine NEGATIVE (NEGATIVE); THC,Urine NEGATIVE (NEGATIVE)
--- NOTE | 2020-03-13 09:21 | XRAY ---
Indication: Short of breath. Elevated d-dimer. History of PE. Multiple contiguous axial images obtained through the chest using 80 cc Isovue 370 contrast and PE protocol. Comparison: February 27, 2020. There is adequate opacification of the pulmonary arteries including lobar and segmental branches. Again no filling defect or pulmonary embolus. Heart is not enlarged again demonstrating CABG surgery. Aorta is normal in course and caliber again with minimal calcifications. No pathologic mediastinal/hilar lymphadenopathy. Stable enlarged heterogeneous right thyroid. Lungs again demonstrates minimal right middle lobe fibrosis/scarring and left lower lobe calcified granuloma. No suspicious pulmonary mass, infiltrate, or effusion. Bony thorax intact again with flowing osteophytes throughout the spine. Limited upper abdomen again demonstrates fatty liver and calcified splenic granulomas. Impression: 1. Continued negative for pulmonary embolus. 2. No new/acute cardiopulmonary abnormalities. 3. Stable heterogeneous enlarged right thyroid, fatty liver, and evidence for old granulomatous disease. Comment: Preliminary interpretation was made by C. No critical discrepancy.
--- NOTE | 2020-03-13 09:25 | XRAY ---
Indication: Short of breath. Comparison: February 27, 2020. Portable chest remains clear again with left lower lobe calcified granuloma. Heart is not enlarged again with CABG surgery. No new/acute findings.
--- NOTE | 2020-03-13 09:55 | PCM.HP ---
History of Present Illness - Chief Complaint Chief Complaint: Shortness of breath History of Present Illness: is a 69 year old female with a known hx of CAD with CABG in 2005, she has been increasingly short of breath over the last week. she complains of swelling in her legs, right worse than left with tenderness in her right calf as well. She denies cough or fever, no vomiting or diarrhea. She has been unable to see Dr Miranda recently due to insurance reasons. She also notes episodes of waking in the night suddenly short of breath and has to sit on the side of the bed. - Review of Systems Constitutional: No Fever, No Chills Respiratory: Orthopnea, Short Of Breath, No Cough Cardiac: Edema, PND Abdominal/Gastrointestinal: No Abdominal Pain, No Nausea, No Vomiting, No Diarrhea Skin: No Rash Neurological: No Dizziness, No Focal Weakness, No Sensory Changes Psychological: No Symptoms All Other Systems: Reviewed and Negative Medications & Allergies Home Medications: Home Medication List Metoprolol Tartrate 25 mg [Lopressor 25MG Tab] 25 mg PO DAILY 01/06/17 [ History Confirmed 03/13/20] Enalapril Maleate 20 mg PO DAILY 02/13/19 [History Confirmed 03/13/20] Insulin NPH Human Isophane [Novolin N] 35 units SQ BID 02/13/19 [History Confirmed 03/13/20] Insulin Regular, Human [Novolin R] 17 units SQ 02/13/19 [History Confirmed 02/15] Rosuvastatin Calcium [Crestor] 10 mg PO DAILY 02/13/19 [History Confirmed ] Furosemide [Lasix] 40 mg PO DAILY 02/15/19 [History Confirmed 03/13/20] Insulin Regular, Human [NovoLIN R] 10 unit IJ DINNER 02/15/19 [History Confirmed 03/13/20] Aspirin EC 81 mg [Ecotrin 81 mg] 81 mg PO DAILY 03/13/20 [History Confirmed 03/13/20] Gabapentin 1 cap PO HS 03/13/20 [History Confirmed 03/13/20] Omeprazole 20 mg PO DAILY 03/13/20 [History Confirmed 03/13/20] Sennosides/Docusate Sodium [Senna-S Tablet] 3 each PO BID 03/13/20 [History Confirmed 03/13/20] Allergies/Adverse Reactions: Allergies Allergy/AdvReac Type Severity Reaction Status Date / Time ketorolac [From Toradol] AdvReac Verified 03/13/20 03:13 - Past Medical History Past Medical History: Yes Neurological History: No Pertinent History ENT History: Cataracts Cardiac History: Coronary Artery Disease, High Cholesterol, Hypertension Respiratory History: No Pertinent History Endocrine Medical History: Diabetes Type II Musculoskelatal History: No Pertinent History GI Medical History: No Pertinent History History: No Pertinent History Pyscho-Social History: No Pertinent History Reproductive Disorders: No Pertinent History - Female History Hx Last Menstrual Period: POST - Past Surgical History Past Surgical History: Yes Neuro Surgical History: No Pertinent History Cardiac History: CABG, Cardiac Catheterization Respiratory Surgery: No Pertinent History GI Surgical History: No Pertinent History Genitourinary Surgical Hx: No Pertinent History Musculskeletal Surgical Hx: Other Female Surgical History: Hysterectomy, Section Other Surgical History: abd tumor removed, carpal tunnel - Social History Smoking Status: Former smoker Exposure to second hand smoke: No Alcohol: None Drug Use: none - Physical Exam Vital Signs: Vital Signs - 24 hr Temp Pulse Resp BP Pulse Ox 03/13/20 09:18 98 03/13/20 06:54 69 18 140/60 98 03/13/20 06:47 96 03/13/20 05:40 80 13 139/66 96 03/13/20 04:57 70 16 139/64 96 03/13/20 04:46 77 16 134/61 98 03/13/20 03:51 68 16 140/76 96 03/13/20 03:26 99 03/13/20 03:00 98.0 F 81 20 146/60 98 General Appearance: no apparent distress, obese Neurologic Exam: alert, oriented x 3, cooperative Respiratory Exam: crackles/rales Cardiovascular Exam: regular rate/rhythm, normal heart sounds, normal peripheral pulses Gastrointestinal/Abdomen Exam: soft, normal bowel sounds, No tenderness, No mass Extremity Exam: milton's sign (right), pedal edema, swelling Skin Exam: normal color, warm, dry, No rash Results - Labs Lab/Micro Results: Lab Results-Last 24 Hours 03/13/20 03/13/20 03/13/20 Range/Units 03:30 03:35 03:35 WBC 10.4 (4.0-10.5) K/mm3 RBC 4.46 (4.1-5.4) M/mm3 Hgb 12.9 (12.0-16.0) gm/dl Hct 40.1 (35-47) % MCV 89.9 (78-100) fl MCH 28.9 (26-32) pg MCHC 32.2 (32-36) g/dl RDW 14.2 H (11.5-14.0) % Plt Count 254 (150-450) K/mm3 MPV 9.3 (7.5-11.0) fl Gran % 70.6 H (36.0-66.0) % Eos # (Auto) 0.13 (0-0.5) Absolute Lymphs (auto) 1.78 (1.0-4.6) Absolute Monos (auto) 1.14 (0.0-1.3) Lymphocytes % 17.0 L (24.0-44.0) % Monocytes % 10.9 (0.0-12.0) % Eosinophils % 1.2 (0.00-5.0) % Basophils % 0.3 (0.0-0.4) % Absolute Granulocytes 7.36 H (1.4-6.9) Basophils # 0.03 (0-0.4) D-Dimer 910 H* (215-500) ng/mL Sodium 143 (137-145) mmol/L Potassium 3.6 (3.5-5.1) mmol/L Chloride 108 H (98-107) mmol/L Carbon Dioxide 26 (22-30) mmol/L Anion Gap 12.0 (5-15) MEQ/L BUN 22 H (7-17) mg/dL Creatinine 0.95 (0.52-1.04) mg/dL Estimated GFR > 60.0 ML/MIN Glucose 91 (74-106) mg/dL Calcium 9.1 (8.4-10.2) mg/dL Total Bilirubin 0.50 (0.2-1.3) mg/dL AST 24 (14-36) U/L ALT 18 (0-35) U/L Alkaline Phosphatase 92 (38-126) U/L Troponin I (0.000-0.034) ng/mL NT-Pro-B Natriuret Pep 51.1 (0-900) pg/mL Serum Total Protein 6.8 (6.3-8.2) g/dL Albumin 3.8 (3.5-5.0) g/dL Urine Opiates Level (NEGATIVE) Ur Methadone (NEGATIVE) Urine Barbiturates (NEGATIVE) Ur Phencyclidine (PCP) (NEGATIVE) Urine Amphetamine (NEGATIVE) U Benzodiazepine Level (NEGATIVE) Urine Cocaine (NEGATIVE) Urine Marijuana (THC) (NEGATIVE) 03/13/20 03/13/20 03/13/20 Range/Units 03:35 04:00 06:20 WBC (4.0-10.5) K/mm3 RBC (4.1-5.4) M/mm3 Hgb (12.0-16.0) gm/dl Hct (35-47) % MCV (78-100) fl MCH (26-32) pg MCHC (32-36) g/dl RDW (11.5-14.0) % Plt Count (150-450) K/mm3 MPV (7.5-11.0) fl Gran % (36.0-66.0) % Eos # (Auto) (0-0.5) Absolute Lymphs (auto) (1.0-4.6) Absolute Monos (auto) (0.0-1.3) Lymphocytes % (24.0-44.0) % Monocytes % (0.0-12.0) % Eosinophils % (0.00-5.0) % Basophils % (0.0-0.4) % Absolute Granulocytes (1.4-6.9) Basophils # (0-0.4) D-Dimer (215-500) ng/mL Sodium (137-145) mmol/L Potassium (3.5-5.1) mmol/L Chloride (98-107) mmol/L Carbon Dioxide (22-30) mmol/L Anion Gap (5-15) MEQ/L BUN (7-17) mg/dL Creatinine (0.52-1.04) mg/dL Estimated GFR ML/MIN Glucose (74-106) mg/dL Calcium (8.4-10.2) mg/dL Total Bilirubin (0.2-1.3) mg/dL AST (14-36) U/L ALT (0-35) U/L Alkaline Phosphatase (38-126) U/L Troponin I < 0.012 < 0.012 (0.000-0.034) ng/mL NT-Pro-B Natriuret Pep (0-900) pg/mL Serum Total Protein (6.3-8.2) g/dL Albumin (3.5-5.0) g/dL Urine Opiates Level NEGATIVE (NEGATIVE) Ur Methadone NEGATIVE (NEGATIVE) Urine Barbiturates NEGATIVE (NEGATIVE) Ur Phencyclidine (PCP) NEGATIVE (NEGATIVE) Urine Amphetamine NEGATIVE (NEGATIVE) U Benzodiazepine Level NEGATIVE (NEGATIVE) Urine Cocaine NEGATIVE (NEGATIVE) Urine Marijuana (THC) NEGATIVE (NEGATIVE) - Radiology Impressions Radiology Exams & Impressions: Radiology Procedures Category Date Time Status CHEST 1 VIEW (PORTABLE) Stat Exams 03/13/20 03:04 Completed CHEST WITH CONTRAST [CT] Stat Exams 03/13/20 04:46 Completed ECHO W/2D AND DOPPLER [US] Routine Exams 03/13/20 Ordered VENOUS BILATERAL EXTREMITY [US] Routine Exams 03/13/20 Ordered Assessment/Plan (1) CHF (congestive heart failure) Current Visit: Yes Status: Acute Assessment & Plan: ordered IV lasix, CT chest nonacute but has some physical exam signs c/w volume overload. will diurese gently and get echo, patient reports she has not had one in the last couple of years. continue lindsey (enalapril) and beta nayely ( metoprolol) from home meds. Code(s): I50.9 - HEART FAILURE, UNSPECIFIED (2) D-dimer, elevated Current Visit: Yes Status: Acute Assessment & Plan: cta chest negative, check venous dopplers. started on lovenox 40mg daily Code(s): R79.89 - OTHER SPECIFIED ABNORMAL FINDINGS OF BLOOD CHEMISTRY (3) Shortness of breath Current Visit: Yes Status: Acute Assessment & Plan: covid-19 swab pending, likely related to acute on chronic chf, she is currently stable on room air with no significant respiratory distress. will monitor closely and diurese as above. Code(s): R06.02 - SHORTNESS OF BREATH (4) Type 2 diabetes mellitus Current Visit: No Status: Chronic Assessment & Plan: insulin ordered
[2020-03-13] MEDS ORDERED: ENOXAPARIN SODIUM SQ SCH ×2 (10:00→22:00)
[2020-03-13] MEDS ORDERED: Vasotec 10 MG PO SCH ×2 (10:00→22:00)
[2020-03-13] MEDS ORDERED: Protonix 40MG Tablet PO SCH ×2 (10:00→22:00)
[2020-03-13] MEDS: Lasix 40 MG/4 ML IV SCH ×2 (10:45→21:38)
[2020-03-13] MEDS: Senokot-S Tablet PO SCH ×2 (10:45→21:38)
[2020-03-13] MEDS: Lopressor 25MG Tab PO SCH (10:45)
[2020-03-13] MEDS: Klor Con 10 MEQ PO SCH ×2 (10:45→21:38)
[2020-03-13] MEDS: ECOTRIN 81 MG PO SCH (10:45)
[2020-03-13] MEDS: Novolin N SQ SCH ×2 (10:46→17:02)
[2020-03-13] MEDS ORDERED: Novolin N ONE (10:53)
[2020-03-13] MEDS: HUMALOG SQ PRN ×3 (12:12→21:39)
--- NOTE | 2020-03-13 15:24 | XRAY ---
Indication: Elevated d-dimer. Two-dimensional sonogram and color Doppler imaging of the major venous vessels of the left and right leg was performed. Comparison: None No thrombus seen in the examined deep venous vessels of the left and right leg including greater saphenous vein. Veins demonstrate normal compressibility. Venous waveforms are normal with and without augmentation. Impression: Left and right legs negative for DVT.
[2020-03-13] MEDS ORDERED: Novolin N SQ SCH (22:00)
[2020-03-13] MEDS ORDERED: Neurontin 100 MG PO SCH (22:00)
[2020-03-13] MEDS ORDERED: ZOCOR 20MG PO SCH (22:00)
[2020-03-14 05:19] LABS: Absolute Neutrophil Ct (ANC) 7.31 (1.4-6.9); BASOPHIL % 0.2 % (0.0-0.4); Basophil (Absolute #) 0.02 (0-0.4); Eosinophil % 1.2 % (0.00-5.0); Eosinophil (Absolute #) 0.12 (0-0.5); Hematocrit 40.9 % (35-47); Hemoglobin 13.4 gm/dl (12.0-16.0); Lymphocyte (Absolute #) 1.49 (1.0-4.6); Lymphocytes % 15.2 % (24.0-44.0); Mean Cell Volume 89.3 fl (78-100); Mean Corpuscular Hemoglobin 29.3 pg (26-32); Mean Corpuscular Hgb Concent. 32.8 g/dl (32-36); Mean Platelet Volume 9.8 fl (7.5-11.0); Monocyte (Absolute #) 0.87 (0.0-1.3); Monocytes % 8.9 % (0.0-12.0); Neutrophil % 74.5 % (36.0-66.0); Platelet Count 267 K/mm3 (150-450); Red Blood Count 4.58 M/mm3 (4.1-5.4); Red Cell Distribution Width 14.3 % (11.5-14.0); White Blood Count 9.8 K/mm3 (4.0-10.5)
[2020-03-14 05:47] LABS: ANION GAP 15.7 MEQ/L (5-15); BILIRUBIN,TOTAL 0.9 mg/dL (0.2-1.3); Calcium 9.5 mg/dL (8.4-10.2); Creatinine 1 1.12 mg/dL (0.52-1.04); MAGNESIUM 2.1 mg/dL (1.6-2.3); Potassium 4.4 mmol/L (3.5-5.1)
[2020-03-14 06:54] VITALS: O2SAT 96
[2020-03-14] MEDS: HUMALOG SQ PRN ×2 (08:05→12:24)
[2020-03-14] MEDS: Novolin N SQ SCH (08:05)
--- NOTE | 2020-03-14 08:44 | PCM.NOTE ---
Date and Time: 03/14/20 0843 Subjective Assessment: patient is feeling much better at this time, her swelling is improved and she feels her breathing is back to her baseline. she has had good urine output Objective Exam General Appearance: no apparent distress, alert, obese Neurologic Exam: alert, oriented x 3, cooperative Skin Exam: normal color, warm, dry Respiratory Exam: normal breath sounds, lungs clear, No respiratory distress Cardiovascular Exam: regular rate/rhythm, normal heart sounds Gastrointestinal/Abdomen Exam: soft Extremity Exam: normal inspection, normal range of motion OBJECTIVE DATA Vital Signs: Vital Signs - 24 hr Temp Pulse Resp BP Pulse Ox 03/14/20 08:00 97.7 F 69 16 115/63 96 03/14/20 06:54 96 03/14/20 04:00 97.9 F 77 16 115/57 95 03/14/20 00:00 97.8 F 94 H 16 98/50 97 03/13/20 19:44 96 03/13/20 19:34 98.1 F 59 L 14 106/48 96 03/13/20 16:00 97.9 F 60 20 134/59 98 03/13/20 11:47 97.7 F 81 18 133/65 98 03/13/20 09:52 98.1 F 72 16 144/68 96 03/13/20 09:18 98 Pain Assessment - Last Documented Pain Intensity 0 Pain Scale Used 0-10 Pain Scale Intake and Output: Intake & Output 03/11/20 03/12/20 03/13/20 03/14/20 11:59 11:59 11:59 11:59 Intake Total 240 1420 Output Total 200 3300 Balance 40 -1880 Weight 102 kg Lab Results: Accuchecks Date 03/14/20 Date 03/13/20 Date 03/13/20 Date 03/13/20 Time 04:30 Time 16:30 Time 11:30 Time 09:48 Accucheck Value: 108 Accucheck Value: 167 Accucheck Value: 235 Accucheck Value: 229 Accucheck Value: 109 Lab Results-Last 24 Hours 03/13/20 03/13/20 03/13/20 Range/Units 09:15 10:20 12:15 WBC (4.0-10.5) K/mm3 RBC (4.1-5.4) M/mm3 Hgb (12.0-16.0) gm/dl Hct (35-47) % MCV (78-100) fl MCH (26-32) pg MCHC (32-36) g/dl RDW (11.5-14.0) % Plt Count (150-450) K/mm3 MPV (7.5-11.0) fl Gran % (36.0-66.0) % Eos # (Auto) (0-0.5) Absolute Lymphs (auto) (1.0-4.6) Absolute Monos (auto) (0.0-1.3) Lymphocytes % (24.0-44.0) % Monocytes % (0.0-12.0) % Eosinophils % (0.00-5.0) % Basophils % (0.0-0.4) % Absolute Granulocytes (1.4-6.9) Basophils # (0-0.4) Sodium (137-145) mmol/L Potassium (3.5-5.1) mmol/L Chloride (98-107) mmol/L Carbon Dioxide (22-30) mmol/L Anion Gap (5-15) MEQ/L BUN (7-17) mg/dL Creatinine (0.52-1.04) mg/dL Estimated GFR ML/MIN Glucose (74-106) mg/dL Hemoglobin A1c 6.58 H (4.5-6.0) % Calcium (8.4-10.2) mg/dL Magnesium (1.6-2.3) mg/dL Total Bilirubin (0.2-1.3) mg/dL AST (14-36) U/L ALT (0-35) U/L Alkaline Phosphatase (38-126) U/L Troponin I < 0.012 < 0.012 (0.000-0.034) ng/mL Serum Total Protein (6.3-8.2) g/dL Albumin (3.5-5.0) g/dL 03/13/20 03/14/20 03/14/20 Range/Units 15:40 04:25 04:25 WBC 9.8 (4.0-10.5) K/mm3 RBC 4.58 (4.1-5.4) M/mm3 Hgb 13.4 (12.0-16.0) gm/dl Hct 40.9 (35-47) % MCV 89.3 (78-100) fl MCH 29.3 (26-32) pg MCHC 32.8 (32-36) g/dl RDW 14.3 H (11.5-14.0) % Plt Count 267 (150-450) K/mm3 MPV 9.8 (7.5-11.0) fl Gran % 74.5 H (36.0-66.0) % Eos # (Auto) 0.12 (0-0.5) Absolute Lymphs (auto) 1.49 (1.0-4.6) Absolute Monos (auto) 0.87 (0.0-1.3) Lymphocytes % 15.2 L (24.0-44.0) % Monocytes % 8.9 (0.0-12.0) % Eosinophils % 1.2 (0.00-5.0) % Basophils % 0.2 (0.0-0.4) % Absolute Granulocytes 7.31 H (1.4-6.9) Basophils # 0.02 (0-0.4) Sodium 141 (137-145) mmol/L Potassium 4.4 D (3.5-5.1) mmol/L Chloride 104 (98-107) mmol/L Carbon Dioxide 26 (22-30) mmol/L Anion Gap 15.7 H (5-15) MEQ/L BUN 30 H (7-17) mg/dL Creatinine 1.12 H (0.52-1.04) mg/dL Estimated GFR 51.3 ML/MIN Glucose 161 H (74-106) mg/dL Hemoglobin A1c (4.5-6.0) % Calcium 9.5 (8.4-10.2) mg/dL Magnesium 2.1 (1.6-2.3) mg/dL Total Bilirubin 0.90 (0.2-1.3) mg/dL AST 33 (14-36) U/L ALT 17 (0-35) U/L Alkaline Phosphatase 87 (38-126) U/L Troponin I < 0.012 (0.000-0.034) ng/mL Serum Total Protein 7.0 (6.3-8.2) g/dL Albumin 4.0 (3.5-5.0) g/dL Radiology Exams: Radiology Procedures Category Date Time Status CHEST 1 VIEW (PORTABLE) Stat Exams 03/13/20 03:04 Completed CHEST WITH CONTRAST [CT] Stat Exams 03/13/20 04:46 Completed ECHO W/2D AND DOPPLER [US] Routine Exams 03/13/20 14:28 Taken VENOUS BILATERAL EXTREMITY [US] Routine Exams 03/13/20 14:28 Completed Multi-Disciplinary Progress Notes: Multi-Disciplinary Progress Notes 03/14/20 02:02 Respiratory Note by Usama Lira NURSING CALLED TO STATE THAT PT 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 THEY PLACED PT ON 1.5LPM O2 AND I PLACED AN ORDER. Initialized on 03/14/20 02:02 - END OF NOTE Assessment/Plan (1) CHF (congestive heart failure) Current Visit: Yes Status: Acute Assessment & Plan: appear euvolemic, d/c iv lasix and change to po. likely home if covid-19 swab is negative when returns. Code(s): I50.9 - HEART FAILURE, UNSPECIFIED (2) D-dimer, elevated Current Visit: Yes Status: Acute Code(s): R79.89 - OTHER SPECIFIED ABNORMAL FINDINGS OF BLOOD CHEMISTRY (3) Shortness of breath Current Visit: Yes Status: Acute Code(s): R06.02 - SHORTNESS OF BREATH (4) Type 2 diabetes mellitus Current Visit: No Status: Chronic
[2020-03-14] MEDS: ECOTRIN 81 MG PO SCH (09:32)
[2020-03-14] MEDS: Senokot-S Tablet PO SCH (09:32)
[2020-03-14] MEDS: Lopressor 25MG Tab PO SCH (09:32)
[2020-03-14] MEDS ORDERED: ENOXAPARIN SODIUM SQ SCH ×2 (10:00)
[2020-03-14] MEDS ORDERED: Klor Con 10 MEQ PO SCH (10:00)
[2020-03-14] MEDS ORDERED: Lasix 40 MG PO SCH (10:00)
[2020-03-14] MEDS ORDERED: NON-FORMULARY ITEM (Rosuvastatin Calcium [Crestor] 10 MG) PO SCH (10:00)
[2020-03-14 12:08] VITALS: BP 116/63; PULSE 65
--- NOTE | 2020-03-14 12:50 | PCM.DS ---
Discharge Summary Date of Admission: 03/13/20 08:32 Admitting Physician: CHILANGO DE JESUS Consults: Consults on Case 03/13/20 09:28 Consult Cardiology ROUTINE Primary Care Provider: LEEANN CHRISTIANSEN Allergies Allergies ketorolac [From Toradol] Adverse Reaction (Verified 03/13/20 03:13) Hospital Summary - Hospital Course Hospital Course: patient was admitted with increasing shortness of breath and swelling to the lower extremities, diuresed with IV lasix and her breathing returned to baseline. no oxygen requirements, she was swabbed for COVID-19 and swab was negative. she is feeling much better, has a cardiac history and follows with Dr Kenrick Christiansen as her PCP and Dr Miranda - Vitals & Intake/Output Vital Signs: Vital Signs Temperature 97.8 F 03/14/20 12:00 Pulse Rate 65 03/14/20 12:00 Respiratory Rate 20 03/14/20 12:00 Blood Pressure 116/63 03/14/20 12:00 O2 Sat by Pulse Oximetry 96 03/14/20 12:00 Intake & Output: Intake & Output 03/12/20 03/13/20 03/14/20 03/15/20 11:59 11:59 11:59 11:59 Intake Total 240 1780 Output Total 200 3550 Balance 40 -1770 Weight 102 kg - Lab Result Diagrams: 03/14/20 04:25 03/14/20 04:25 Lab Results-Last 24 Hrs: Accuchecks Date 03/14/20 Date 03/14/20 Date 03/13/20 Time 11:30 Time 04:30 Time 16:30 Accucheck Value: 187 Accucheck Value: 108 Accucheck Value: 167 Accucheck Value: 235 Lab Results-Last 24 Hours 03/13/20 03/13/20 03/14/20 Range/Units 12:15 15:40 04:25 WBC 9.8 (4.0-10.5) K/mm3 RBC 4.58 (4.1-5.4) M/mm3 Hgb 13.4 (12.0-16.0) gm/dl Hct 40.9 (35-47) % MCV 89.3 (78-100) fl MCH 29.3 (26-32) pg MCHC 32.8 (32-36) g/dl RDW 14.3 H (11.5-14.0) % Plt Count 267 (150-450) K/mm3 MPV 9.8 (7.5-11.0) fl Gran % 74.5 H (36.0-66.0) % Eos # (Auto) 0.12 (0-0.5) Absolute Lymphs (auto) 1.49 (1.0-4.6) Absolute Monos (auto) 0.87 (0.0-1.3) Lymphocytes % 15.2 L (24.0-44.0) % Monocytes % 8.9 (0.0-12.0) % Eosinophils % 1.2 (0.00-5.0) % Basophils % 0.2 (0.0-0.4) % Absolute Granulocytes 7.31 H (1.4-6.9) Basophils # 0.02 (0-0.4) Sodium (137-145) mmol/L Potassium (3.5-5.1) mmol/L Chloride (98-107) mmol/L Carbon Dioxide (22-30) mmol/L Anion Gap (5-15) MEQ/L BUN (7-17) mg/dL Creatinine (0.52-1.04) mg/dL Estimated GFR ML/MIN Glucose (74-106) mg/dL Calcium (8.4-10.2) mg/dL Magnesium (1.6-2.3) mg/dL Total Bilirubin (0.2-1.3) mg/dL AST (14-36) U/L ALT (0-35) U/L Alkaline Phosphatase (38-126) U/L Troponin I < 0.012 < 0.012 (0.000-0.034) ng/mL Serum Total Protein (6.3-8.2) g/dL Albumin (3.5-5.0) g/dL 03/14/20 Range/Units 04:25 WBC (4.0-10.5) K/mm3 RBC (4.1-5.4) M/mm3 Hgb (12.0-16.0) gm/dl Hct (35-47) % MCV (78-100) fl MCH (26-32) pg MCHC (32-36) g/dl RDW (11.5-14.0) % Plt Count (150-450) K/mm3 MPV (7.5-11.0) fl Gran % (36.0-66.0) % Eos # (Auto) (0-0.5) Absolute Lymphs (auto) (1.0-4.6) Absolute Monos (auto) (0.0-1.3) Lymphocytes % (24.0-44.0) % Monocytes % (0.0-12.0) % Eosinophils % (0.00-5.0) % Basophils % (0.0-0.4) % Absolute Granulocytes (1.4-6.9) Basophils # (0-0.4) Sodium 141 (137-145) mmol/L Potassium 4.4 D (3.5-5.1) mmol/L Chloride 104 (98-107) mmol/L Carbon Dioxide 26 (22-30) mmol/L Anion Gap 15.7 H (5-15) MEQ/L BUN 30 H (7-17) mg/dL Creatinine 1.12 H (0.52-1.04) mg/dL Estimated GFR 51.3 ML/MIN Glucose 161 H (74-106) mg/dL Calcium 9.5 (8.4-10.2) mg/dL Magnesium 2.1 (1.6-2.3) mg/dL Total Bilirubin 0.90 (0.2-1.3) mg/dL AST 33 (14-36) U/L ALT 17 (0-35) U/L Alkaline Phosphatase 87 (38-126) U/L Troponin I (0.000-0.034) ng/mL Serum Total Protein 7.0 (6.3-8.2) g/dL Albumin 4.0 (3.5-5.0) g/dL Micro Results-Entire Visit: Accuchecks Date 03/14/20 Date 03/14/20 Date 03/13/20 Time 11:30 Time 04:30 Time 16:30 Accucheck Value: 187 Accucheck Value: 108 Accucheck Value: 167 Accucheck Value: 235 - Radiology Exams Ordered Rad Exams-Entire Visit: Radiology Procedures Category Date Time Status CHEST 1 VIEW (PORTABLE) Stat Exams 03/13/20 03:04 Completed CHEST WITH CONTRAST [CT] Stat Exams 03/13/20 04:46 Completed ECHO W/2D AND DOPPLER [US] Routine Exams 03/13/20 14:28 Taken VENOUS BILATERAL EXTREMITY [US] Routine Exams 03/13/20 14:28 Completed - Procedures and Test Procedures and Tests throughout Hospitalization: Therapy Orders & Screens 03/14/20 02:02 Oxygen Nasal Cannula 2 lpm Comment: Diagnosis: Shortness of breath Discharge Exam General Appearance: no apparent distress, obese Neurologic Exam: alert, oriented x 3, cooperative Respiratory Exam: normal breath sounds, lungs clear, No respiratory distress Cardiovascular Exam: regular rate/rhythm, normal heart sounds Gastrointestinal/Abdomen Exam: soft, No tenderness, No mass Extremity Exam: normal inspection, normal range of motion Skin Exam: normal color, warm, dry Final Diagnosis/Problem List - Final Discharge Diagnosis/Problem (1) CHF (congestive heart failure) Current Visit: Yes Status: Acute Code(s): I50.9 - HEART FAILURE, UNSPECIFIED (2) D-dimer, elevated Current Visit: Yes Status: Acute Code(s): R79.89 - OTHER SPECIFIED ABNORMAL FINDINGS OF BLOOD CHEMISTRY (3) Shortness of breath Current Visit: Yes Status: Acute Code(s): R06.02 - SHORTNESS OF BREATH (4) Type 2 diabetes mellitus Current Visit: No Status: Chronic - Discharge Disposition: Home, Self-Care Condition: Stable Prescriptions: New Potassium Chloride 10 Meq Tab* [Klor Con 10 MEQ] 10 meq PO DAILY #30 tab Continue Metoprolol Tartrate 25 mg [Lopressor 25MG Tab] 25 mg PO DAILY Rosuvastatin Calcium [Crestor] 10 mg PO DAILY Insulin Regular, Human [Novolin R] 17 units SQ UD Insulin NPH Human Isophane [Novolin N] 35 units SQ BID Enalapril Maleate 20 mg PO HS Furosemide [Lasix] 40 mg PO DAILY Insulin Regular, Human [NovoLIN R] 10 unit IJ DINNER Omeprazole 20 mg PO HS Aspirin EC 81 mg [Ecotrin 81 mg] 81 mg PO DAILY Sennosides/Docusate Sodium [Senna-S Tablet] 3 each PO BID Gabapentin 1 cap PO HS Follow up with: LEEANN CHRISTIANSEN [Primary Care Provider] - 1 Week
== END 2020-03-14 14:20 | disposition home or self-care (01) ==
LOC: ED 02:57 → MED SURG 08:32
PROVIDERS: ADMIT Family Medicine; ATTEND Family Medicine
DX: I50.9 Heart failure, unspecified (principal); M79.89 Other specified soft tissue disorders; E11.9 Type 2 diabetes mellitus without complications; R79.89 Other specified abnormal findings of blood chemistry; I10 Essential (primary) hypertension; R53.83 Other fatigue; R42 Dizziness and giddiness; E78.00 Pure hypercholesterolemia, unspecified; Z86.79 Personal history of other diseases of the circulatory system; Z79.899 Other long term (current) drug therapy; Z95.1 Presence of aortocoronary bypass graft; Z79.4 Long term (current) use of insulin
CPT/HCPCS: 36000; 36415; 71045; 71260; 80053; 80307; 82962; 83036; 83735; 83880; 84484; 85025; 85379; 93005; 93041; 93268; 93306; 93970; 94760; 94762; 99285; G0378; U0001; 99000; J1650; J1817; J1940; A9270-GY

== ENCOUNTER 2020-09-10 09:14 | Inpatient (IN) | payer MEDICARE ==
[2020-09-10] MEDS ORDERED: Sodium Chloride 0.9% 500 ML 500 ML IV ONE (09:50)
[2020-09-10] MEDS ORDERED: Sodium Chloride 0.9% 500 ML 500 ML IV SCH (10:00)
[2020-09-10 10:16] LABS: VBG CARBOXYHEMOGLOBIN 4.3 % T HGB (0.0-6.9); VBG HCO3- 28.5 meq/L (22-28); VBG HEMOGLOBIN 13.6; VBG O2 SATURATION 67.2 (95-100); VBG POTASSIUM 4.6 (3.5-5.1); VBG pH 7.4 (7.32-7.42)
[2020-09-10 10:30] LABS: Absolute Neutrophil Ct (ANC) 3.99 (1.4-6.9); BASOPHIL % 0.2 % (0.0-0.4); Basophil (Absolute #) 0.01 (0-0.4); Eosinophil (Absolute #) 0 (0-0.5); Hematocrit 40.5 % (35-47); Hemoglobin 12.9 gm/dl (12.0-16.0); Lymphocyte (Absolute #) 0.95 (1.0-4.6); Lymphocytes % 16.6 % (24.0-44.0); Mean Cell Volume 90.8 fl (78-100); Mean Corpuscular Hemoglobin 28.9 pg (26-32); Mean Corpuscular Hgb Concent. 31.9 g/dl (32-36); Mean Platelet Volume 10.4 fl (7.5-11.0); Monocyte (Absolute #) 0.79 (0.0-1.3); Monocytes % 13.8 % (0.0-12.0); Neutrophil % 69.4 % (36.0-66.0); Platelet Count 222 K/mm3 (150-450); Red Blood Count 4.46 M/mm3 (4.1-5.4); Red Cell Distribution Width 13.8 % (11.5-14.0); White Blood Count 5.7 K/mm3 (4.0-10.5)
[2020-09-10 10:35] LABS: ALBUMIN 3.7 g/dL (3.5-5.0); BILIRUBIN,TOTAL 0.5 mg/dL (0.2-1.3); Calcium 8.5 mg/dL (8.4-10.2); Creatinine 1 0.98 mg/dL (0.52-1.04); EST GLOMERULAR FILTRATION RATE 59.8 ML/MIN; Potassium 4.6 mmol/L (3.5-5.1); Total Protein 6.8 g/dL (6.3-8.2)
--- NOTE | 2020-09-10 11:06 | XRAY ---
Indication: Cough. Positive Covid 19. Comparison: March 13, 2020. Portable chest demonstrates new subtle hazy groundglass airspace opacities bilaterally without consolidation/large effusion. Heart is borderline enlarged again with CABG surgery. Bony thorax intact again with mild degenerative changes.
[2020-09-10] MEDS ORDERED: ROCEPHIN 1 Gm-D5w 50 ml Bag** 1 G/50 ML IVPB IV STA (11:20)
[2020-09-10] MEDS ORDERED: Zithromax 500 MG/ 250 ML NaCl Premix 500 MG/250 ML IVPB IV STA (11:20)
[2020-09-10] MEDS ORDERED: ROCEPHIN 1 Gm-D5w 50 ml Bag** 1 G/50 ML IVPB IV ONE (11:29)
[2020-09-10] MEDS ORDERED: Zithromax 500 MG/ 250 ML NaCl Premix 500 MG/250 ML IVPB IV ONE (11:29)
--- NOTE | 2020-09-10 11:44 | ERPHSYRPT ---
- History of Present Illness Time Seen by Provider: 09/10/20 09:42 Source: patient, EMS Exam Limitations: no limitations Patient Subjective Stated Complaint: nausea, diarrhea, weakness Triage Nursing Assessment: . Physician History: 69 years old female with history of type 1 diabetes mellitus, hypertension, hyperlipidemia, positive COVID-19 testing 5 days ago presented in the ER with increasing generalized weakness and fatigue for the last 2 to 3 days. Patient reports she has been feeling generalized weakness fatigue and tiredness for the last 10 days but recently it is getting worse. She is loss of taste and smell and cannot eat much as she start dry heaving. She does have few episodes of loose stool and vomiting in the last few days. No vomiting or diarrhea today but severe nausea. She also has minimal cough. Denies any chest pain palpitations or shortness of breath. No abdominal pain. Timing/Duration: day(s) (5), gradual onset, worse Severity: moderate Modifying Factors: Worsens With: movement Associated Symptoms: nausea, vomiting, cough, chills, headaches, malaise, weakness, No abdominal pain, No shortness of breath, No fever Allergies/Adverse Reactions: ketorolac [From Toradol] Adverse Reaction (Verified 09/10/20 09:47) Home Medications: Metoprolol Tartrate 25 mg [Lopressor 25MG Tab] 25 mg PO DAILY 01/06/17 [History] Enalapril Maleate 10 mg PO DAILY 02/13/19 [History] Insulin NPH Human Isophane [Novolin N] 36 units SQ BID 02/13/19 [History] Insulin Regular, Human [Novolin R] 30 units SQ UD 02/13/19 [History] Rosuvastatin Calcium [Crestor] 10 mg PO DAILY 02/13/19 [History] Insulin Regular, Human [NovoLIN R] 15 unit IJ DINNER 02/15/19 [History] Aspirin EC 81 mg [Ecotrin 81 mg] 81 mg PO DAILY 03/13/20 [History] Gabapentin 1 cap PO HS 03/13/20 [History] Omeprazole 20 mg PO DAILY 03/13/20 [History] Hx Tetanus, Diphtheria Vaccination/Date Given: Yes Hx Influenza Vaccination/Date Given: Yes Hx Pneumococcal Vaccination/Date Given: Yes Immunizations Up to Date: Yes Travel Risk - International Travel Have you traveled outside of the country in past 3 weeks: No - Coronavirus Screening Are you exhibiting any of the following symptoms?: Yes Symptoms: Cough: New Onset, Vomiting/Diarrhea Close contact with a COVID-19 positive Pt in past 14-21 Days: No - Review of Systems Constitutional: Chills, Fatigue, Malaise, Weakness Eyes: No Symptoms Ears, Nose, & Throat: No Symptoms Respiratory: Cough Cardiac: No Symptoms Abdominal/Gastrointestinal: Nausea, Vomiting, Diarrhea Genitourinary Symptoms: No Symptoms Musculoskeletal: Myalgias Skin: No Symptoms Neurological: No Symptoms Psychological: No Symptoms Endocrine: No Symptoms Hematologic/Lymphatic: No Symptoms - Past Medical History Pertinent Past Medical History: Yes Neurological History: No Pertinent History ENT History: Cataracts Cardiac History: Coronary Artery Disease, High Cholesterol, Hypertension Respiratory History: No Pertinent History Endocrine Medical History: Diabetes Type II Musculoskeletal History: No Pertinent History GI Medical History: No Pertinent History History: No Pertinent History Psycho-Social History: No Pertinent History Female Reproductive Disorders: No Pertinent History - Past Surgical History Past Surgical History: Yes Neuro Surgical History: No Pertinent History Cardiac: CABG, Cardiac Catheterization Respiratory: No Pertinent History Gastrointestinal: No Pertinent History Genitourinary: No Pertinent History Musculoskeletal: Other Female Surgical History: Hysterectomy, Section Other Surgical History: abd tumor removed, carpal tunnel - Social History Smoking Status: Former smoker Exposure to second hand smoke: No Drug Use: none Patient Lives Alone: Yes - Female History Hx Now: No - Nursing Vital Signs Nursing Vital Signs: Initial Vital Signs Temperature 99.9 F 09/10/20 09:32 Pulse Rate 68 09/10/20 09:32 Respiratory Rate 16 09/10/20 09:32 Blood Pressure 126/44 09/10/20 09:32 O2 Sat by Pulse Oximetry 93 L 09/10/20 09:32 Pain Scale Pain Intensity 0 - Physical Exam General Appearance: no apparent distress, alert Eye Exam: PERRL/EOMI, eyes nml inspection Ears, Nose, Throat Exam: pharyngeal erythema Neck Exam: normal inspection, non-tender, supple, full range of motion Respiratory Exam: diminished breath sounds, rhonchi Cardiovascular Exam: regular rate/rhythm, normal heart sounds Gastrointestinal/Abdomen Exam: soft, normal bowel sounds, No tenderness, No distention Extremity Exam: normal inspection, normal range of motion Neurologic Exam: alert, oriented x 3, cooperative, 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 tested Skin Exam: normal color SpO2 Interpretation: normal SpO2: 95 O2 Delivery: Room Air Ordered Tests: Active Orders 24 hr Category Date Time Status CHEST 1 VIEW (PORTABLE) Stat Exams 09/10/20 10:11 Completed CBC W DIFF Stat Lab 09/10/20 10:07 Completed CMP Stat Lab 09/10/20 10:09 Completed LIPASE Stat Lab 09/10/20 10:09 Completed Lactic Acid Stat Lab 09/10/20 10:12 Completed MAG [MAGNESIUM] Stat Lab 09/10/20 10:13 Completed UA W/RFX UR CULTURE Stat Lab 09/10/20 10:09 Uncollected VENOUS BLOOD GAS Stat Lab 09/10/20 10:12 Completed Medication Summary Generic Name Dose Route Start Last Admin Trade Name Freq PRN Reason Stop Dose Admin Sodium Chloride 500 mls @ 100 mls/hr 09/10/20 10:00 09/10/20 10:00 Sodium Chloride 0.9% 500 Ml IV 10/10/20 09:59 100 mls/hr .Q5H ALBAN Administration Azithromycin 500 mg in 250 mls @ 250 mls/hr 09/10/20 11:20 09/10/20 11:57 Zithromax 500 Mg/ 250 Ml Nacl Premix IV 09/10/20 12:19 250 mls/hr STAT STA 250 mls/hr Administration Discontinued Medications Generic Name Dose Route Start Last Admin Trade Name Freq PRN Reason Stop Dose Admin Sodium Chloride Confirm 09/10/20 09:50 Sodium Chloride 0.9% 500 Ml Administered 09/10/20 09:51 Dose 500 mls @ ud IV .STK-MED ONE Ceftriaxone Sodium/Dextrose 1 g in 50 mls @ 100 mls/hr 09/10/20 11:20 09/10/20 11:30 Rocephin 1 Gm-D5w 50 Ml Bag IV 09/10/20 11:49 100 mls/hr STAT STA 100 mls/hr Administration Azithromycin Confirm 09/10/20 11:29 Zithromax 500 Mg/ 250 Ml Nacl Premix Administered 09/10/20 11:30 Dose 500 mg in 250 mls @ ud IV .STK-MED ONE Ceftriaxone Sodium/Dextrose Confirm 09/10/20 11:29 Rocephin 1 Gm-D5w 50 Ml Bag Administered 09/10/20 11:30 Dose 1 g in 50 mls @ ud IV .STK-MED ONE Lab/Rad Data: Laboratory Result Diagrams 09/10/20 10:07 09/10/20 10:09 Laboratory Results 09/10/20 09/10/20 09/10/20 Range/Units 10:13 10:12 10:12 WBC (4.0-10.5) K/mm3 RBC (4.1-5.4) M/mm3 Hgb (12.0-16.0) gm/dl Hct (35-47) % MCV (78-100) fl MCH (26-32) pg MCHC (32-36) g/dl RDW (11.5-14.0) % Plt Count (150-450) K/mm3 MPV (7.5-11.0) fl Gran % (36.0-66.0) % Eos # (Auto) (0-0.5) Absolute Lymphs (auto) (1.0-4.6) Absolute Monos (auto) (0.0-1.3) Lymphocytes % (24.0-44.0) % Monocytes % (0.0-12.0) % Eosinophils % (0.00-5.0) % Basophils % (0.0-0.4) % Absolute Granulocytes (1.4-6.9) Basophils # (0-0.4) pO2/FiO2 Ratio 21.0 % VBG pH 7.40 (7.32-7.42) VBG pCO2 at Pat Temp 46 (42-55) mm/Hg VBG pO2 at Pat Temp 35 (25-40) mm/Hg VBG HCO3 28.5 H (22-28) meq/L VBG O2 Sat (Osmin) 67.2 L (95-100) VBG Base Excess 3.0 H (-2.0-2.0) VBG Hemoglobin 13.6 VBG Carboxyhemoglobin 4.3 (0.0-6.9) % T HGB POC Potassium 4.6 (3.5-5.1) Sodium (137-145) mmol/L Potassium (3.5-5.1) mmol/L Chloride (98-107) mmol/L Carbon Dioxide (22-30) mmol/L Anion Gap (5-15) MEQ/L BUN (7-17) mg/dL Creatinine (0.52-1.04) mg/dL Estimated GFR ML/MIN Glucose (74-106) mg/dL Lactic Acid 1.3 (0.4-2.0) Calcium (8.4-10.2) mg/dL Magnesium 2.2 (1.6-2.3) mg/dL Total Bilirubin (0.2-1.3) mg/dL AST (14-36) U/L ALT (0-35) U/L Alkaline Phosphatase (38-126) U/L Serum Total Protein (6.3-8.2) g/dL Albumin (3.5-5.0) g/dL Lipase (23-300) U/L 09/10/20 09/10/20 Range/Units 10:09 10:07 WBC 5.7 (4.0-10.5) K/mm3 RBC 4.46 (4.1-5.4) M/mm3 Hgb 12.9 (12.0-16.0) gm/dl Hct 40.5 (35-47) % MCV 90.8 (78-100) fl MCH 28.9 (26-32) pg MCHC 31.9 L (32-36) g/dl RDW 13.8 (11.5-14.0) % Plt Count 222 (150-450) K/mm3 MPV 10.4 (7.5-11.0) fl Gran % 69.4 H (36.0-66.0) % Eos # (Auto) 0 (0-0.5) Absolute Lymphs (auto) 0.95 L (1.0-4.6) Absolute Monos (auto) 0.79 (0.0-1.3) Lymphocytes % 16.6 L (24.0-44.0) % Monocytes % 13.8 H (0.0-12.0) % Eosinophils % 0.0 (0.00-5.0) % Basophils % 0.2 (0.0-0.4) % Absolute Granulocytes 3.99 (1.4-6.9) Basophils # 0.01 (0-0.4) pO2/FiO2 Ratio % VBG pH (7.32-7.42) VBG pCO2 at Pat Temp (42-55) mm/Hg VBG pO2 at Pat Temp (25-40) mm/Hg VBG HCO3 (22-28) meq/L VBG O2 Sat (Osmin) (95-100) VBG Base Excess (-2.0-2.0) VBG Hemoglobin VBG Carboxyhemoglobin (0.0-6.9) % T HGB POC Potassium (3.5-5.1) Sodium 136 L (137-145) mmol/L Potassium 4.6 (3.5-5.1) mmol/L Chloride 104 (98-107) mmol/L Carbon Dioxide 27 (22-30) mmol/L Anion Gap 9.0 (5-15) MEQ/L BUN 21 H (7-17) mg/dL Creatinine 0.98 (0.52-1.04) mg/dL Estimated GFR 59.8 ML/MIN Glucose 146 H (74-106) mg/dL Lactic Acid (0.4-2.0) Calcium 8.5 (8.4-10.2) mg/dL Magnesium (1.6-2.3) mg/dL Total Bilirubin 0.50 (0.2-1.3) mg/dL AST 35 (14-36) U/L ALT 18 (0-35) U/L Alkaline Phosphatase 69 (38-126) U/L Serum Total Protein 6.8 (6.3-8.2) g/dL Albumin 3.7 (3.5-5.0) g/dL Lipase 28 (23-300) U/L - Progress Progress: improved Progress Note: 09/10/20 12:04 She is given Zofran with fluid bolus, on reevaluation feeling better. Work-up showed normal white count and lactate. Chemistries grossly unremarkable. Chest x-ray showed bilateral groundglass opacities suggesting pneumonia. Started on Rocephin and Zithromax. Discussed with Dr. Iyer and patient is accepted for admission. 09/10/20 12:10 Discussed with : Gallito Counseled pt/family regarding: lab results, diagnosis, rad results - Departure Departure Disposition: Observation Clinical Impression: COVID-19, Nausea vomiting and diarrhea Pneumonia Qualifiers: Pneumonia type: due to unspecified organism Laterality: bilateral Lung location: lower lobe of lung Qualified Code(s): J18.9 - Pneumonia, unspecified organism Condition: Good Critical Care Time: Yes Critical Care Time(excluding separately billable procedures): Critical 30-74 mins Referrals: LEEANN CHRISTIANSEN [Primary Care Provider] -
[2020-09-10] MEDS ORDERED: REMDESIVIR 200 MG in Sodium Chloride 0.9% 250 ML 250 ML IV ONE ×2 (12:10→16:30)
[2020-09-10] MEDS ORDERED: DECADRON 10MG INJ. IV ONE (12:10)
[2020-09-10] MEDS ORDERED: ENOXAPARIN SODIUM SQ STA (12:11)
[2020-09-10 12:35] LABS: INR 1.1 (0.8-3.0); PROTIME 12.4 SECONDS (9.95-12.35)
[2020-09-10] MEDS ORDERED: DECADRON 10MG INJ. ONE (12:35)
[2020-09-10] MEDS ORDERED: TYLENOL 325 MG PO STA (12:53)
[2020-09-10] MEDS ORDERED: TYLENOL 325 MG ONE (12:56)
[2020-09-10] MEDS ORDERED: ENOXAPARIN SODIUM SQ SCH (13:34)
[2020-09-10] MEDS ORDERED: MORPHINE SULFATE 2 MG INJ IV PRN (13:34)
[2020-09-10] MEDS ORDERED: Zofran 4 MG/2 ML VIAL IV PRN (13:34)
[2020-09-10] MEDS ORDERED: DECADRON 10MG INJ. IM SCH (13:34)
[2020-09-10] MEDS ORDERED: TYLENOL 325 MG PO PRN (13:34)
[2020-09-10] MEDS ORDERED: Sodium Chloride 0.9% 1000 ML 1,000 ML IV SCH (14:00)
[2020-09-10] MEDS ORDERED: Sodium Chloride 0.9% 250 ML 0 ML IV ONE (15:38)
[2020-09-10 16:46] LABS: Appearance CLEAR (CLEAR); Bacteria RARE /HPF (NEGATIVE); Bilirubin NEGATIVE (NEGATIVE); Blood NEGATIVE Ery/ul (0-5); Epithelial Cells FEW /HPF (FEW); Glucose NEGATIVE (NEGATIVE); Ketones NEGATIVE (NEGATIVE); Leukocyte Esterase NEGATIVE (NEGATIVE); Mucus SLIGHT /HPF (NEGATIVE); Nitrite NEGATIVE (NEGATIVE); Protein,Urine Dip NEGATIVE (Negative); Urobilinogen NEGATIVE mg/dL (0-1); WBC 0-2 /HPF (0-5)
[2020-09-10] MEDS: HUMULIN R SQ SCH ×2 (17:23→19:30)
[2020-09-10] MEDS: Sodium Chloride 0.9% 1000 ML 1,000 ML IV SCH (17:35)
[2020-09-10] MEDS: ENOXAPARIN SODIUM SQ SCH (17:36)
[2020-09-10] MEDS: HUMALOG SQ PRN (21:31)
[2020-09-10] MEDS: Novolin N SQ SCH (21:32)
[2020-09-10] MEDS: ZOCOR 20MG PO SCH (21:43)
[2020-09-10] MEDS: Pepcid 20 MG VIAL IV SCH (21:43)
[2020-09-10] MEDS: Neurontin 100 MG PO SCH (21:43)
[2020-09-11] MEDS: ENOXAPARIN SODIUM SQ SCH ×2 (04:41→17:13)
[2020-09-11 05:38] LABS: Absolute Neutrophil Ct (ANC) 3.31 (1.4-6.9); BASOPHIL % 0.2 % (0.0-0.4); Basophil (Absolute #) 0.01 (0-0.4); Eosinophil (Absolute #) 0 (0-0.5); Hematocrit 39.4 % (35-47); Hemoglobin 12.3 gm/dl (12.0-16.0); Lymphocyte (Absolute #) 0.72 (1.0-4.6); Mean Cell Volume 91.8 fl (78-100); Mean Corpuscular Hemoglobin 28.7 pg (26-32); Mean Corpuscular Hgb Concent. 31.2 g/dl (32-36); Mean Platelet Volume 9.4 fl (7.5-11.0); Monocyte (Absolute #) 0.47 (0.0-1.3); Monocytes % 10.4 % (0.0-12.0); Neutrophil % 73.4 % (36.0-66.0); Platelet Count 212 K/mm3 (150-450); Red Blood Count 4.29 M/mm3 (4.1-5.4); Red Cell Distribution Width 13.7 % (11.5-14.0); White Blood Count 4.5 K/mm3 (4.0-10.5)
[2020-09-11 05:51] LABS: ALBUMIN 3.3 g/dL (3.5-5.0); ALKALINE PHOSPHATASE 60 U/L (38-126); ANION GAP 10.8 MEQ/L (5-15); BLOOD UREA NITROGEN 20 mg/dL (7-17); CHLORIDE 108 mmol/L (98-107); Calcium 7.9 mg/dL (8.4-10.2); Carbon Dioxide 25 mmol/L (22-30); Creatinine 1 0.73 mg/dL (0.52-1.04); EST GLOMERULAR FILTRATION RATE > 60.0 ML/MIN; Glucose 213 mg/dL (74-106); Potassium 4.8 mmol/L (3.5-5.1); SGOT/AST 28 U/L (14-36); SGPT/ALT 18 U/L (0-35); SODIUM 139 mmol/L (137-145); Total Protein 6.1 g/dL (6.3-8.2)
[2020-09-11 06:25] LABS: INR 1.15 (0.8-3.0)
[2020-09-11] MEDS: HUMULIN R SQ SCH ×4 (08:43→17:55)
[2020-09-11] MEDS: Novolin N SQ SCH ×2 (08:43→21:30)
[2020-09-11] MEDS: ECOTRIN 81 MG PO SCH (08:47)
[2020-09-11] MEDS: Decadron 4 MG INJ IV SCH (08:47)
[2020-09-11] MEDS: ROCEPHIN 1 Gm-D5w 50 ml Bag** 1 G/50 ML IVPB IV SCH (08:48)
[2020-09-11] MEDS: Sodium Chloride 0.9% 1000 ML 1,000 ML IV SCH (08:51)
[2020-09-11] MEDS: Protonix 40MG Tablet PO SCH (08:57)
[2020-09-11] MEDS: Lopressor 25MG Tab PO SCH (08:57)
--- NOTE | 2020-09-11 09:50 | PCM.HP ---
History of Present Illness - Chief Complaint Chief Complaint: pneumonia, covid-19 Date: 09/11/20 History of Present Illness: is a 69 year old female. Pt. notes she has been ill for about 10 days with cough and fever with a few loose stools, tested positive for covid on Tuesday but did not find out until tuesday, brother has been talking with her daily and told her to call ambulance yesterday as she was not getting any better, this am, pt. notes she is feeling better. - Review of Systems Constitutional: Fever, Chills Eyes: No Symptoms Ears, Nose, & Throat: No Symptoms Respiratory: Cough, Short Of Breath Cardiac: No Chest Pain, No Edema, No Syncope Abdominal/Gastrointestinal: No Abdominal Pain, No Nausea, No Vomiting, No Diarrhea Genitourinary Symptoms: No Dysuria Musculoskeletal: No Back Pain, No Neck Pain Skin: No Rash Neurological: No Dizziness, No Focal Weakness, No Sensory Changes Psychological: No Symptoms Endocrine: No Symptoms Medications & Allergies Home Medications: Home Medication List Metoprolol Tartrate 25 mg [Lopressor 25MG Tab] 25 mg PO DAILY 01/06/17 [History Confirmed 09/10/20] Enalapril Maleate 10 mg PO DAILY 02/13/19 [History Confirmed 09/10/20] Insulin NPH Human Isophane [Novolin N] 36 units SQ HS 02/13/19 [History Confirmed 09/10/20] Rosuvastatin Calcium [Crestor] 10 mg PO DAILY 02/13/19 [History Confirmed 09/10/20] Insulin Regular, Human [NovoLIN R] 15 unit SQ DINNER 02/15/19 [History Confirmed 09/10/20] Aspirin EC 81 mg [Ecotrin 81 mg] 81 mg PO DAILY 03/13/20 [History Confirmed 09/10/20] Gabapentin 1 cap PO HS 03/13/20 [History Confirmed 09/10/20] Omeprazole 20 mg PO DAILY 03/13/20 [History Confirmed 09/10/20] Insulin NPH Human Isophane [Humulin N] 38 unit SQ QAM 09/10/20 [History Confirmed 09/10/20] Insulin Regular, Human [Novolin R] 17 unit SQ LUNCH 09/10/20 [History Confirmed 09/10/20] Insulin Regular, Human [Novolin R] 17 units SQ BREAKFAST 09/10/20 [History Confirmed 09/10/20] Allergies/Adverse Reactions: Allergies Allergy/AdvReac Type Severity Reaction Status Date / Time ketorolac [From Toradol] AdvReac Verified 09/10/20 09:47 - Past Medical History Past Medical History: Yes Neurological History: No Pertinent History ENT History: Cataracts Cardiac History: Coronary Artery Disease, Hypertension Respiratory History: No Pertinent History Endocrine Medical History: Diabetes Type II Musculoskelatal History: No Pertinent History GI Medical History: No Pertinent History History: No Pertinent History Pyscho-Social History: No Pertinent History Reproductive Disorders: No Pertinent History - Female History Are you now?: No - Past Surgical History Past Surgical History: Yes Neuro Surgical History: No Pertinent History Cardiac History: CABG, Cardiac Catheterization Respiratory Surgery: No Pertinent History GI Surgical History: No Pertinent History Genitourinary Surgical Hx: No Pertinent History Musculskeletal Surgical Hx: Other Female Surgical History: Hysterectomy, Section Other Surgical History: abd tumor removed, carpal tunnel - Social History Smoking Status: Former smoker Exposure to second hand smoke: No Alcohol: None Drug Use: none - Physical Exam Vital Signs: Vital Signs - 24 hr Temp Pulse Resp BP Pulse Ox 09/11/20 08:47 95 09/11/20 08:00 97.6 F 47 L 135/63 94 L 09/11/20 06:29 16 09/11/20 05:26 97.5 F 63 18 121/54 94 L 09/11/20 04:40 16 09/11/20 03:40 45 L 16 09/11/20 02:32 16 09/11/20 01:31 48 L 16 136/61 94 L 09/11/20 00:29 16 09/10/20 23:33 97.6 F 49 L 18 136/61 96 09/10/20 23:00 17 09/10/20 22:00 53 L 17 98 09/10/20 20:35 16 09/10/20 20:00 97.9 F 50 L 16 143/63 99 09/10/20 19:30 97 09/10/20 19:00 12 09/10/20 18:34 98.3 F 51 L 12 117/56 93 L 09/10/20 18:00 51 L 12 93 L 09/10/20 16:00 98.3 F 54 L 18 117/56 98 09/10/20 14:00 56 L 14 94 L 09/10/20 12:51 99.0 F 66 23 122/61 98 09/10/20 12:18 95 09/10/20 11:19 61 25 H 139/56 95 09/10/20 10:23 64 21 131/49 95 Oxygen-Last 24 hours Oxygen Flowrate (L/min)-RT 2 Oxygen Flowrate (L/min)-RT 2 Oxygen Flowrate (L/min)-RT 136 Oxygen Flowrate (L/min)-RT 2 Oxygen Flowrate (L/min)-RT 2 Oxygen Flowrate (L/min)-RT 2 Oxygen Flowrate (L/min)-RT 2 General Appearance: no apparent distress Neurologic Exam: alert, cooperative, normal mood/affect Eye Exam: eyes nml inspection Ears, Nose, Throat Exam: normal ENT inspection Neck Exam: normal inspection Respiratory Exam: normal breath sounds, lungs clear, No chest tenderness Cardiovascular Exam: regular rate/rhythm, normal heart sounds Gastrointestinal/Abdomen Exam: soft, normal bowel sounds, No tenderness, No distention, No mass Pelvic Exam: not done Rectal Exam: deferred Back Exam: normal inspection Extremity Exam: normal inspection, normal range of motion Skin Exam: normal color, warm, dry, rash Results - Labs Lab/Micro Results: Lab Results-Last 24 Hours 09/10/20 09/10/20 09/10/20 Range/Units 10:07 10:07 10:09 WBC 5.7 (4.0-10.5) K/mm3 RBC 4.46 (4.1-5.4) M/mm3 Hgb 12.9 (12.0-16.0) gm/dl Hct 40.5 (35-47) % MCV 90.8 (78-100) fl MCH 28.9 (26-32) pg MCHC 31.9 L (32-36) g/dl RDW 13.8 (11.5-14.0) % Plt Count 222 (150-450) K/mm3 MPV 10.4 (7.5-11.0) fl Gran % 69.4 H (36.0-66.0) % Eos # (Auto) 0 (0-0.5) Absolute Lymphs (auto) 0.95 L (1.0-4.6) Absolute Monos (auto) 0.79 (0.0-1.3) Lymphocytes % 16.6 L (24.0-44.0) % Monocytes % 13.8 H (0.0-12.0) % Eosinophils % 0.0 (0.00-5.0) % Basophils % 0.2 (0.0-0.4) % Absolute Granulocytes 3.99 (1.4-6.9) Basophils # 0.01 (0-0.4) PT (9.95-12.35) SECONDS INR (0.8-3.0) APTT (25.3-37.0) SECONDS D-Dimer (215-500) ng/mL pO2/FiO2 Ratio % VBG pH (7.32-7.42) VBG pCO2 at Pat Temp (42-55) mm/Hg VBG pO2 at Pat Temp (25-40) mm/Hg VBG HCO3 (22-28) meq/L VBG O2 Sat ([place]min) (95-100) VBG Base Excess (-2.0-2.0) VBG Hemoglobin VBG Carboxyhemoglobin (0.0-6.9) % T HGB POC Potassium (3.5-5.1) Sodium 136 L (137-145) mmol/L Potassium 4.6 (3.5-5.1) mmol/L Chloride 104 (98-107) mmol/L Carbon Dioxide 27 (22-30) mmol/L Anion Gap 9.0 (5-15) MEQ/L BUN 21 H (7-17) mg/dL Creatinine 0.98 (0.52-1.04) mg/dL Estimated GFR 59.8 ML/MIN Glucose 146 H (74-106) mg/dL POC Glucometer (74 to 106) mg/dL Hemoglobin A1c 6.27 H (4.5-6.0) % Lactic Acid (0.4-2.0) Calcium 8.5 (8.4-10.2) mg/dL Magnesium (1.6-2.3) mg/dL Total Bilirubin 0.50 (0.2-1.3) mg/dL AST 35 (14-36) U/L ALT 18 (0-35) U/L Alkaline Phosphatase 69 (38-126) U/L Serum Total Protein 6.8 (6.3-8.2) g/dL Albumin 3.7 (3.5-5.0) g/dL Lipase 28 (23-300) U/L Urine Color (YELLOW) Urine Appearance (CLEAR) Urine pH (5-6) Ur Specific [place] (1.005-1.025) Urine Protein (Negative) Urine Ketones (NEGATIVE) Urine Blood (0-5) Roby/ul Urine Nitrite (NEGATIVE) Urine Bilirubin (NEGATIVE) Urine Urobilinogen (0-1) mg/dL Ur Leukocyte Esterase (NEGATIVE) Urine WBC (Auto) (0-5) /HPF Urine RBC (Auto) (0-2) /HPF U Epithel Cells (Auto) (FEW) /HPF Urine Bacteria (Auto) (NEGATIVE) /HPF Urine Mucus (Auto) (NEGATIVE) /HPF Urine Culture Reflexed (NO) Urine Glucose (NEGATIVE) mg/dL 09/10/20 09/10/20 09/10/20 Range/Units 10:12 10:12 10:13 WBC (4.0-10.5) K/mm3 RBC (4.1-5.4) M/mm3 Hgb (12.0-16.0) gm/dl Hct (35-47) % MCV (78-100) fl MCH (26-32) pg MCHC (32-36) g/dl RDW (11.5-14.0) % Plt Count (150-450) K/mm3 MPV (7.5-11.0) fl Gran % (36.0-66.0) % Eos # (Auto) (0-0.5) Absolute Lymphs (auto) (1.0-4.6) Absolute Monos (auto) (0.0-1.3) Lymphocytes % (24.0-44.0) % Monocytes % (0.0-12.0) % Eosinophils % (0.00-5.0) % Basophils % (0.0-0.4) % Absolute Granulocytes (1.4-6.9) Basophils # (0-0.4) PT (9.95-12.35) SECONDS INR (0.8-3.0) APTT (25.3-37.0) SECONDS D-Dimer (215-500) ng/mL pO2/FiO2 Ratio 21.0 % VBG pH 7.40 (7.32-7.42) VBG pCO2 at Pat Temp 46 (42-55) mm/Hg VBG pO2 at Pat Temp 35 (25-40) mm/Hg VBG HCO3 28.5 H (22-28) meq/L VBG O2 Sat ([place]) 67.2 L (95-100) VBG Base Excess 3.0 H (-2.0-2.0) VBG Hemoglobin 13.6 VBG Carboxyhemoglobin 4.3 (0.0-6.9) % T HGB POC Potassium 4.6 (3.5-5.1) Sodium (137-145) mmol/L Potassium (3.5-5.1) mmol/L Chloride (98-107) mmol/L Carbon Dioxide (22-30) mmol/L Anion Gap (5-15) MEQ/L BUN (7-17) mg/dL Creatinine (0.52-1.04) mg/dL Estimated GFR ML/MIN Glucose (74-106) mg/dL POC Glucometer (74 to 106) mg/dL Hemoglobin A1c (4.5-6.0) % Lactic Acid 1.3 (0.4-2.0) Calcium (8.4-10.2) mg/dL Magnesium 2.2 (1.6-2.3) mg/dL Total Bilirubin (0.2-1.3) mg/dL AST (14-36) U/L ALT (0-35) U/L Alkaline Phosphatase (38-126) U/L Serum Total Protein (6.3-8.2) g/dL Albumin (3.5-5.0) g/dL Lipase (23-300) U/L Urine Color (YELLOW) Urine Appearance (CLEAR) Urine pH (5-6) Ur Specific [place] (1.005-1.025) Urine Protein (Negative) Urine Ketones (NEGATIVE) Urine Blood (0-5) Roby/ul Urine Nitrite (NEGATIVE) Urine Bilirubin (NEGATIVE) Urine Urobilinogen (0-1) mg/dL Ur Leukocyte Esterase (NEGATIVE) Urine WBC (Auto) (0-5) /HPF Urine RBC (Auto) (0-2) /HPF U Epithel Cells (Auto) (FEW) /HPF Urine Bacteria (Auto) (NEGATIVE) /HPF Urine Mucus (Auto) (NEGATIVE) /HPF Urine Culture Reflexed (NO) Urine Glucose (NEGATIVE) mg/dL 09/10/20 09/10/20 09/10/20 Range/Units 12:15 16:30 18:01 WBC (4.0-10.5) K/mm3 RBC (4.1-5.4) M/mm3 Hgb (12.0-16.0) gm/dl Hct (35-47) % MCV (78-100) fl MCH (26-32) pg MCHC (32-36) g/dl RDW (11.5-14.0) % Plt Count (150-450) K/mm3 MPV (7.5-11.0) fl Gran % (36.0-66.0) % Eos # (Auto) (0-0.5) Absolute Lymphs (auto) (1.0-4.6) Absolute Monos (auto) (0.0-1.3) Lymphocytes % (24.0-44.0) % Monocytes % (0.0-12.0) % Eosinophils % (0.00-5.0) % Basophils % (0.0-0.4) % Absolute Granulocytes (1.4-6.9) Basophils # (0-0.4) PT 12.4 H (9.95-12.35) SECONDS INR 1.10 (0.8-3.0) APTT 29.0 (25.3-37.0) SECONDS D-Dimer (215-500) ng/mL pO2/FiO2 Ratio % VBG pH (7.32-7.42) VBG pCO2 at Pat Temp (42-55) mm/Hg VBG pO2 at Pat Temp (25-40) mm/Hg VBG HCO3 (22-28) meq/L VBG O2 Sat ([place]) (95-100) VBG Base Excess (-2.0-2.0) VBG Hemoglobin VBG Carboxyhemoglobin (0.0-6.9) % T HGB POC Potassium (3.5-5.1) Sodium (137-145) mmol/L Potassium (3.5-5.1) mmol/L Chloride (98-107) mmol/L Carbon Dioxide (22-30) mmol/L Anion Gap (5-15) MEQ/L BUN (7-17) mg/dL Creatinine (0.52-1.04) mg/dL Estimated GFR ML/MIN Glucose (74-106) mg/dL POC Glucometer 262 H (74 to 106) mg/dL Hemoglobin A1c (4.5-6.0) % Lactic Acid (0.4-2.0) Calcium (8.4-10.2) mg/dL Magnesium (1.6-2.3) mg/dL Total Bilirubin (0.2-1.3) mg/dL AST (14-36) U/L ALT (0-35) U/L Alkaline Phosphatase (38-126) U/L Serum Total Protein (6.3-8.2) g/dL Albumin (3.5-5.0) g/dL Lipase (23-300) U/L Urine Color YELLOW (YELLOW) Urine Appearance CLEAR (CLEAR) Urine pH 5.0 (5-6) Ur Specific [place] 1.020 (1.005-1.025) Urine Protein NEGATIVE (Negative) Urine Ketones NEGATIVE (NEGATIVE) Urine Blood NEGATIVE (0-5) Roby/ul Urine Nitrite NEGATIVE (NEGATIVE) Urine Bilirubin NEGATIVE (NEGATIVE) Urine Urobilinogen NEGATIVE (0-1) mg/dL Ur Leukocyte Esterase NEGATIVE (NEGATIVE) Urine WBC (Auto) 0-2 (0-5) /HPF Urine RBC (Auto) 3-5 (0-2) /HPF U Epithel Cells (Auto) FEW (FEW) /HPF Urine Bacteria (Auto) RARE (NEGATIVE) /HPF Urine Mucus (Auto) SLIGHT (NEGATIVE) /HPF Urine Culture Reflexed NO (NO) Urine Glucose NEGATIVE (NEGATIVE) mg/dL 09/10/20 09/11/20 09/11/20 Range/Units 21:28 04:00 05:24 WBC 4.5 (4.0-10.5) K/mm3 RBC 4.29 (4.1-5.4) M/mm3 Hgb 12.3 (12.0-16.0) gm/dl Hct 39.4 (35-47) % MCV 91.8 (78-100) fl MCH 28.7 (26-32) pg MCHC 31.2 L (32-36) g/dl RDW 13.7 (11.5-14.0) % Plt Count 212 (150-450) K/mm3 MPV 9.4 (7.5-11.0) fl Gran % 73.4 H (36.0-66.0) % Eos # (Auto) 0 (0-0.5) Absolute Lymphs (auto) 0.72 L (1.0-4.6) Absolute Monos (auto) 0.47 (0.0-1.3) Lymphocytes % 16.0 L (24.0-44.0) % Monocytes % 10.4 (0.0-12.0) % Eosinophils % 0.0 (0.00-5.0) % Basophils % 0.2 (0.0-0.4) % Absolute Granulocytes 3.31 (1.4-6.9) Basophils # 0.01 (0-0.4) PT (9.95-12.35) SECONDS INR (0.8-3.0) APTT (25.3-37.0) SECONDS D-Dimer (215-500) ng/mL pO2/FiO2 Ratio % VBG pH (7.32-7.42) VBG pCO2 at Pat Temp (42-55) mm/Hg VBG pO2 at Pat Temp (25-40) mm/Hg VBG HCO3 (22-28) meq/L VBG O2 Sat ([place]) (95-100) VBG Base Excess (-2.0-2.0) VBG Hemoglobin VBG Carboxyhemoglobin (0.0-6.9) % T HGB POC Potassium (3.5-5.1) Sodium 139 (137-145) mmol/L Potassium 4.8 (3.5-5.1) mmol/L Chloride 108 H (98-107) mmol/L Carbon Dioxide 25 (22-30) mmol/L Anion Gap 10.8 (5-15) MEQ/L BUN 20 H (7-17) mg/dL Creatinine 0.73 (0.52-1.04) mg/dL Estimated GFR > 60.0 ML/MIN Glucose 213 H (74-106) mg/dL POC Glucometer 316 H (74 to 106) mg/dL Hemoglobin A1c (4.5-6.0) % Lactic Acid (0.4-2.0) Calcium 7.9 L (8.4-10.2) mg/dL Magnesium (1.6-2.3) mg/dL Total Bilirubin 0.40 (0.2-1.3) mg/dL AST 28 (14-36) U/L ALT 18 (0-35) U/L Alkaline Phosphatase 60 (38-126) U/L Serum Total Protein 6.1 L (6.3-8.2) g/dL Albumin 3.3 L (3.5-5.0) g/dL Lipase (23-300) U/L Urine Color (YELLOW) Urine Appearance (CLEAR) Urine pH (5-6) Ur Specific [place] (1.005-1.025) Urine Protein (Negative) Urine Ketones (NEGATIVE) Urine Blood (0-5) Roby/ul Urine Nitrite (NEGATIVE) Urine Bilirubin (NEGATIVE) Urine Urobilinogen (0-1) mg/dL Ur Leukocyte Esterase (NEGATIVE) Urine WBC (Auto) (0-5) /HPF Urine RBC (Auto) (0-2) /HPF U Epithel Cells (Auto) (FEW) /HPF Urine Bacteria (Auto) (NEGATIVE) /HPF Urine Mucus (Auto) (NEGATIVE) /HPF Urine Culture Reflexed (NO) Urine Glucose (NEGATIVE) mg/dL 09/11/20 09/11/20 Range/Units 05:24 07:54 WBC (4.0-10.5) K/mm3 RBC (4.1-5.4) M/mm3 Hgb (12.0-16.0) gm/dl Hct (35-47) % MCV (78-100) fl MCH (26-32) pg MCHC (32-36) g/dl RDW (11.5-14.0) % Plt Count (150-450) K/mm3 MPV (7.5-11.0) fl Gran % (36.0-66.0) % Eos # (Auto) (0-0.5) Absolute Lymphs (auto) (1.0-4.6) Absolute Monos (auto) (0.0-1.3) Lymphocytes % (24.0-44.0) % Monocytes % (0.0-12.0) % Eosinophils % (0.00-5.0) % Basophils % (0.0-0.4) % Absolute Granulocytes (1.4-6.9) Basophils # (0-0.4) PT 13.0 H (9.95-12.35) SECONDS INR 1.15 (0.8-3.0) APTT (25.3-37.0) SECONDS D-Dimer 963 H* (215-500) ng/mL pO2/FiO2 Ratio % VBG pH (7.32-7.42) VBG pCO2 at Pat Temp (42-55) mm/Hg VBG pO2 at Pat Temp (25-40) mm/Hg VBG HCO3 (22-28) meq/L VBG O2 Sat ([place]) (95-100) VBG Base Excess (-2.0-2.0) VBG Hemoglobin VBG Carboxyhemoglobin (0.0-6.9) % T HGB POC Potassium (3.5-5.1) Sodium (137-145) mmol/L Potassium (3.5-5.1) mmol/L Chloride (98-107) mmol/L Carbon Dioxide (22-30) mmol/L Anion Gap (5-15) MEQ/L BUN (7-17) mg/dL Creatinine (0.52-1.04) mg/dL Estimated GFR ML/MIN Glucose (74-106) mg/dL POC Glucometer 196 H (74 to 106) mg/dL Hemoglobin A1c (4.5-6.0) % Lactic Acid (0.4-2.0) Calcium (8.4-10.2) mg/dL Magnesium (1.6-2.3) mg/dL Total Bilirubin (0.2-1.3) mg/dL AST (14-36) U/L ALT (0-35) U/L Alkaline Phosphatase (38-126) U/L Serum Total Protein (6.3-8.2) g/dL Albumin (3.5-5.0) g/dL Lipase (23-300) U/L Urine Color (YELLOW) Urine Appearance (CLEAR) Urine pH (5-6) Ur Specific [place] (1.005-1.025) Urine Protein (Negative) Urine Ketones (NEGATIVE) Urine Blood (0-5) Roby/ul Urine Nitrite (NEGATIVE) Urine Bilirubin (NEGATIVE) Urine Urobilinogen (0-1) mg/dL Ur Leukocyte Esterase (NEGATIVE) Urine WBC (Auto) (0-5) /HPF Urine RBC (Auto) (0-2) /HPF U Epithel Cells (Auto) (FEW) /HPF Urine Bacteria (Auto) (NEGATIVE) /HPF Urine Mucus (Auto) (NEGATIVE) /HPF Urine Culture Reflexed (NO) Urine Glucose (NEGATIVE) mg/dL Accuchecks Date 09/10/20 Time 21:30 - Radiology Impressions Radiology Exams & Impressions: Radiology Procedures Category Date Time Status CHEST 1 VIEW (PORTABLE) Stat Exams 09/10/20 10:11 Completed CHEST WITH CONTRAST [CT] Urgent Exams 09/11/20 06:39 Ordered - Other Procedures and Tests Respiratory Therapy 09/10/20 19:52 Oxygen Nasal Cannula 2 lpm Assessment/Plan (1) COVID-19 Current Visit: Yes Status: Acute Assessment & Plan: on remdesivir, steroids, and anticoagulant Code(s): U07.1 - COVID-19 (2) Pneumonia Current Visit: Yes Status: Acute Qualifiers: Pneumonia type: due to unspecified organism Laterality: bilateral Lung location: lower lobe of lung Qualified Code(s): J18.9 - Pneumonia, unspecified organism Assessment & Plan: iv rocephin and azithromycin Code(s): J18.9 - PNEUMONIA, UNSPECIFIED ORGANISM (3) D-dimer, elevated Current Visit: No Status: Acute Assessment & Plan: CTA of chest today, already on anticoagulation Code(s): R79.89 - OTHER SPECIFIED ABNORMAL FINDINGS OF BLOOD CHEMISTRY
[2020-09-11] MEDS ORDERED: NON-FORMULARY ITEM (Rosuvastatin Calcium [Crestor] 10 MG) PO SCH (10:00)
[2020-09-11] MEDS: Pepcid 20 MG VIAL IV SCH ×2 (11:28→21:29)
[2020-09-11] MEDS: Zithromax 500 MG/ 250 ML NaCl Premix 500 MG/250 ML IVPB IV SCH (11:29)
--- NOTE | 2020-09-11 11:31 | XRAY ---
Indication: Elevated d-dimer. Positive Covid 19. Multiple contiguous axial images obtained through the chest using 80 cc Isovue 370 contrast and PE protocol. Comparison: March 13, 2020. There is good opacification of the pulmonary arteries to include the lobar and segmental branches. Again no pulmonary embolus. Heart is now borderline enlarged. Aorta is normal in course and caliber. No pathologic mediastinal/hilar lymphadenopathy. Stable enlarged heterogeneous right thyroid gland. New small hiatal hernia. Examination of the lung parenchyma demonstrates new diffuse bilateral peripheral groundglass opacities without consolidation or effusion. Stable left lower lobe calcified granuloma. Bony thorax intact again with flowing osteophytes throughout the spine. Limited upper abdomen again demonstrates fatty liver and calcified splenic granulomas. Impression: 1. Continued negative for pulmonary embolus. 2. New bilaterally diffuse peripheral groundglass opacities, typical reported imaging features for Covid 19 pneumonia. Other processes such as influenza pneumonia and organizing pneumonia, as can be seen with drug toxicity and connective-tissue disease, I can cause a similar imaging pattern. 3. New hiatal hernia. 4. Stable heterogeneous enlarged right thyroid, fatty liver, and old granulomatous disease.
[2020-09-11] MEDS: REMDESIVIR 100 MG in Sodium Chloride 0.9% 100 ML IVPB 100 ML IV SCH (17:02)
[2020-09-11] MEDS: HUMALOG SQ PRN ×2 (17:55→21:43)
[2020-09-11] MEDS ORDERED: Vasotec 10 MG ONE (19:54)
[2020-09-11] MEDS: ZOCOR 20MG PO SCH (21:29)
[2020-09-11] MEDS: Neurontin 100 MG PO SCH (21:29)
[2020-09-11] MEDS: Vasotec 10 MG PO SCH (21:29)
[2020-09-12] MEDS: ENOXAPARIN SODIUM SQ SCH ×2 (03:41→16:56)
[2020-09-12] MEDS: Sodium Chloride 0.9% 1000 ML 1,000 ML IV SCH ×2 (03:42→16:54)
[2020-09-12 05:41] LABS: INR 1.2 (0.8-3.0); PROTIME 13.6 SECONDS (9.95-12.35)
[2020-09-12 05:45] LABS: ALKALINE PHOSPHATASE 54 U/L (38-126); ANION GAP 6.4 MEQ/L (5-15); BLOOD UREA NITROGEN 22 mg/dL (7-17); CHLORIDE 112 mmol/L (98-107); Calcium 7.8 mg/dL (8.4-10.2); Carbon Dioxide 26 mmol/L (22-30); Creatinine 1 0.89 mg/dL (0.52-1.04); EST GLOMERULAR FILTRATION RATE > 60.0 ML/MIN; Glucose 137 mg/dL (74-106); SGOT/AST 26 U/L (14-36); SGPT/ALT 16 U/L (0-35); SODIUM 139 mmol/L (137-145); Total Protein 5.6 g/dL (6.3-8.2)
[2020-09-12] MEDS: HUMULIN R SQ SCH ×3 (08:11→16:33)
[2020-09-12] MEDS: Novolin N SQ SCH ×2 (08:12→20:51)
[2020-09-12] MEDS: Decadron 4 MG INJ IV SCH (09:20)
[2020-09-12] MEDS: Lopressor 25MG Tab PO SCH (09:20)
[2020-09-12] MEDS: ECOTRIN 81 MG PO SCH (09:20)
[2020-09-12] MEDS: Pepcid 20 MG VIAL IV SCH ×2 (09:20→20:51)
[2020-09-12] MEDS: Zithromax 500 MG/ 250 ML NaCl Premix 500 MG/250 ML IVPB IV SCH (09:21)
[2020-09-12] MEDS: Protonix 40MG Tablet PO SCH (09:21)
[2020-09-12] MEDS: ROCEPHIN 1 Gm-D5w 50 ml Bag** 1 G/50 ML IVPB IV SCH (09:21)
[2020-09-12] MEDS: REMDESIVIR 100 MG in Sodium Chloride 0.9% 100 ML IVPB 100 ML IV SCH (16:32)
[2020-09-12] MEDS: Vasotec 10 MG PO SCH (20:51)
[2020-09-12] MEDS: ZOCOR 20MG PO SCH (20:51)
[2020-09-12] MEDS: Neurontin 100 MG PO SCH (20:51)
[2020-09-12] MEDS: HUMALOG SQ PRN (20:52)
[2020-09-13] MEDS: ENOXAPARIN SODIUM SQ SCH (04:45)
[2020-09-13 06:22] LABS: INR 1.18 (0.8-3.0); PROTIME 13.3 SECONDS (9.95-12.35)
[2020-09-13 06:31] LABS: ALBUMIN 3.3 g/dL (3.5-5.0); ALKALINE PHOSPHATASE 52 U/L (38-126); ANION GAP 6.9 MEQ/L (5-15); BLOOD UREA NITROGEN 22 mg/dL (7-17); CHLORIDE 112 mmol/L (98-107); Calcium 7.9 mg/dL (8.4-10.2); Carbon Dioxide 26 mmol/L (22-30); Creatinine 1 0.73 mg/dL (0.52-1.04); EST GLOMERULAR FILTRATION RATE > 60.0 ML/MIN; Glucose 67 mg/dL (74-106); Potassium 4.3 mmol/L (3.5-5.1); SGOT/AST 34 U/L (14-36); SGPT/ALT 22 U/L (0-35); SODIUM 141 mmol/L (137-145)
[2020-09-13] MEDS: Novolin N SQ SCH (08:19)
[2020-09-13] MEDS: HUMULIN R SQ SCH ×2 (08:19→11:35)
[2020-09-13] MEDS: ECOTRIN 81 MG PO SCH (08:56)
[2020-09-13] MEDS: Decadron 4 MG INJ IV SCH (08:56)
[2020-09-13] MEDS: Pepcid 20 MG VIAL IV SCH (08:57)
[2020-09-13] MEDS: Zithromax 500 MG/ 250 ML NaCl Premix 500 MG/250 ML IVPB IV SCH (08:57)
[2020-09-13] MEDS: Protonix 40MG Tablet PO SCH (08:57)
[2020-09-13] MEDS: ROCEPHIN 1 Gm-D5w 50 ml Bag** 1 G/50 ML IVPB IV SCH (08:57)
[2020-09-13] MEDS: Lopressor 25MG Tab PO SCH (08:57)
[2020-09-13] MEDS: REMDESIVIR 100 MG in Sodium Chloride 0.9% 100 ML IVPB 100 ML IV SCH (11:26)
[2020-09-13 11:59] VITALS: BP 126/66; PULSE 48; O2SAT 97
== END 2020-09-13 12:47 | disposition home or self-care (01) | DRG 177 ==
LOC: ED 09:14 → OBSVTOIN 13:13 → MED SURG 13:13
PROVIDERS: ADMIT Family Medicine; ATTEND Family Medicine
DX: U07.1 COVID-19 (principal); J18.9 Pneumonia, unspecified organism; R79.89 Other specified abnormal findings of blood chemistry; E11.9 Type 2 diabetes mellitus without complications; I10 Essential (primary) hypertension; I25.10 Atherosclerotic heart disease of native coronary artery without angina pectoris; Z79.4 Long term (current) use of insulin
CPT/HCPCS: 36415; 71260; 80053; 81001; 82805; 82962; 83036; 83605; 83690; 83735; 85025; 85379; 85610; 85730; 94762; 96360; 96361; 96365; 96367; 96374; 99291; U0003; 71045; 99285; J0456; J0696; J1100; J1650; J1815; J1817; A9270-GY

== ENCOUNTER 2021-08-23 08:26 | Emergency (ER) | payer MEDICARE ==
[2021-08-23] MEDS ORDERED: PROVENTIL 2.5 MG/3 ML NEB IH ONE ×2 (08:36→09:46)
[2021-08-23] MEDS ORDERED: Sodium Chloride 0.9% 1000 ML 1,000 ML IV SCH (08:45)
--- NOTE | 2021-08-23 09:09 | ERPHSYRPT ---
- History of Present Illness Time Seen by Provider: 08/23/21 09:05 Source: patient Exam Limitations: no limitations Patient Subjective Stated Complaint: SOB Triage Nursing Assessment: .... Physician History: Patient is 70-year-old female with significant past medical history of hypertension, DM, Hyperlipidemia history of Covid pneumonia in August 2020 for which patient was hospitalized. Patient is not COVID immunized. Patient started having some shortness of breath since yesterday and it got worse today morning. Patient says that she was working in her yard and lifting heavy weight and afterwards she started having a shortness of breath. She denies any fever chills nausea vomiting headache or syncopal episodes. Timing/Duration: yesterday Activities at Onset: activity Severity of Dyspnea-Max: moderate Severity of Dyspnea-Current: moderate Possible Cause: occasional episodes Modifying Factors: Improves With: activity Associated Symptoms: wheezing, heaviness, No anxiety, No cough, No loss of appetite, No weakness, No ankle swelling, No dizziness, No leg swelling, No painful breathing, No productive cough, No sweating, No tightness, No tingling face, No tingling hands Allergies/Adverse Reactions: ketorolac [From Toradol] Adverse Reaction (Verified 08/23/21 08:27) Home Medications: Metoprolol Tartrate 25 mg [Lopressor 25MG Tab] 25 mg PO DAILY 01/06/17 [History] Enalapril Maleate 10 mg PO DAILY 02/13/19 [History] Insulin NPH Human Isophane [Novolin N] 36 units SQ HS 02/13/19 [History] Rosuvastatin Calcium [Crestor] 10 mg PO DAILY 02/13/19 [History] Insulin Regular, Human [NovoLIN R] 15 unit SQ DINNER 02/15/19 [History] Aspirin EC 81 mg [Ecotrin 81 mg] 81 mg PO DAILY 03/13/20 [History] Gabapentin 1 cap PO HS 03/13/20 [History] Omeprazole 20 mg PO DAILY 03/13/20 [History] Insulin NPH Human Isophane [Humulin N] 38 unit SQ QAM 09/10/20 [History] Insulin Regular, Human [Novolin R] 17 unit SQ LUNCH 09/10/20 [History] Insulin Regular, Human [Novolin R] 17 units SQ BREAKFAST 09/10/20 [History] Hx Tetanus, Diphtheria Vaccination/Date Given: Yes Hx Influenza Vaccination/Date Given: Yes Hx Pneumococcal Vaccination/Date Given: Yes Immunizations Up to Date: Yes Travel Risk - International Travel Have you traveled outside of the country in past 3 weeks: No - Coronavirus Screening Are you exhibiting any of the following symptoms?: No Close contact with a COVID-19 positive Pt in past 14-21 Days: No - Vaccine Status Have you recieved a Covid-19 vaccination: No - Review of Systems Constitutional: No Fever, No Chills Eyes: No Symptoms Ears, Nose, & Throat: No Symptoms Respiratory: Dyspnea, Dyspnea on Exertion (TALAVERA), Wheezing, No Cough Cardiac: No Chest Pain, No Edema, No Syncope Abdominal/Gastrointestinal: No Abdominal Pain, No Nausea, No Vomiting, No Diarrhea Genitourinary Symptoms: No Dysuria Musculoskeletal: No Back Pain, No Neck Pain Skin: No Rash Neurological: No Dizziness, No Focal Weakness, No Sensory Changes Psychological: No Symptoms Endocrine: No Symptoms All Other Systems: Reviewed and Negative - Past Medical History Pertinent Past Medical History: Yes Neurological History: No Pertinent History ENT History: Cataracts Cardiac History: Coronary Artery Disease, Hypertension Respiratory History: No Pertinent History Endocrine Medical History: Diabetes Type II Musculoskeletal History: No Pertinent History GI Medical History: No Pertinent History History: No Pertinent History Psycho-Social History: No Pertinent History Female Reproductive Disorders: No Pertinent History - Past Surgical History Past Surgical History: Yes Neuro Surgical History: No Pertinent History Cardiac: CABG, Cardiac Catheterization Respiratory: No Pertinent History Gastrointestinal: No Pertinent History Genitourinary: No Pertinent History Musculoskeletal: Other Female Surgical History: Hysterectomy, Section Other Surgical History: abd tumor removed, carpal tunnel - Social History Smoking Status: Former smoker Exposure to second hand smoke: No Drug Use: none Patient Lives Alone: Yes - Nursing Vital Signs Nursing Vital Signs: Initial Vital Signs Temperature 97.0 F 08/23/21 08:29 Pulse Rate 60 08/23/21 08:29 Respiratory Rate 16 08/23/21 08:29 Blood Pressure 157/109 08/23/21 08:29 O2 Sat by Pulse Oximetry 99 08/23/21 08:29 Pain Scale Pain Intensity 0 - Physical Exam General Appearance: no apparent distress, alert Eye Exam: PERRL/EOMI Neck Exam: normal inspection, supple Respiratory Exam: diminished breath sounds, wheezing Cardiovascular/Chest Exam: normal heart sounds, regular rate/rhythm Abdominal/Gastrointestinal Exam: soft, No tenderness, No distention, No mass Extremity Exam: non-tender, normal range of motion, normal inspection, no calf tenderness, no pedal edema Neurologic Exam: alert, oriented x 3, cooperative, 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, sensation nml, No motor deficits Skin Exam: normal color, warm, No dry SpO2 Interpretation: normal SpO2: 99 O2 Delivery: Room Air - Course Nursing assessment & vital signs reviewed: Yes - Radiology Exams Chest X-ray Interpretation: Reviewed by me Ordered Tests: Active Orders 24 hr Category Date Time Status EKG-ER Only STAT Care 08/23/21 08:36 Completed IV Insertion STAT Care 08/23/21 09:28 Active Pulse Oximetry (ED) STAT Care 08/23/21 08:36 Active CHEST 2 VIEWS (PA AND LAT) Stat Exams 08/23/21 08:36 Taken CHEST WITHOUT CONTRAST [CT] Stat Exams 08/23/21 10:29 Taken CBC W DIFF Stat Lab 08/23/21 08:50 Completed CMP Stat Lab 08/23/21 08:50 Completed D-DIMER QUANTITATIVE Stat Lab 08/23/21 08:50 Completed NT PRO BNP Stat Lab 08/23/21 08:50 Completed TROPONIN Q3H Lab 08/23/21 08:50 Completed TROPONIN Q3H Lab 08/23/21 11:40 Received TROPONIN Q3H Lab 08/23/21 14:45 Ordered TROPONIN Q3H Lab 08/23/21 17:45 Ordered TROPONIN Q3H Lab 08/23/21 20:45 Ordered Respiratory Therapy Assessment DAILY RT 08/23/21 09:52 Active Medication Summary Generic Name Dose Route Start Last Admin Trade Name Freq PRN Reason Stop Dose Admin Sodium Chloride 1,000 mls @ 50 mls/hr 08/23/21 08:45 08/23/21 09:41 Sodium Chloride 0.9% 1000 Ml IV 09/22/21 08:44 50 mls/hr .Q20H [place]AN Administration Discontinued Medications Generic Name Dose Route Start Last Admin Trade Name Freq PRN Reason Stop Dose Admin Albuterol Sulfate 2.5 mg 08/23/21 08:36 08/23/21 09:49 Proventil 2.5 Mg/3 Ml Neb IH 08/23/21 08:37 2.5 mg STAT ONE Administration Albuterol Sulfate Confirm 08/23/21 09:46 Proventil 2.5 Mg/3 Ml Neb Administered 08/23/21 09:47 Dose 2.5 mg IH .STK-MED ONE Lab/Rad Data: Laboratory Result Diagrams 08/23/21 08:50 08/23/21 08:50 Laboratory Results 08/23/21 08/23/21 08/23/21 Range/Units 08:50 08:50 08:50 WBC (4.0-10.5) K/mm3 RBC (4.1-5.4) M/mm3 Hgb (12.0-16.0) gm/dl Hct (35-47) % MCV (78-100) fl MCH (26-32) pg MCHC (32-36) g/dl RDW (11.5-14.0) % Plt Count (150-450) K/mm3 MPV (7.5-11.0) fl Gran % (36.0-66.0) % Eos # (Auto) (0-0.5) Absolute Lymphs (auto) (1.0-4.6) Absolute Monos (auto) (0.0-1.3) Lymphocytes % (24.0-44.0) % Monocytes % (0.0-12.0) % Eosinophils % (0.00-5.0) % Basophils % (0.0-0.4) % Absolute Granulocytes (1.4-6.9) Basophils # (0-0.4) D-Dimer 1137 H* (215-500) ng/mL Sodium 140 (137-145) mmol/L Potassium 4.7 (3.5-5.1) mmol/L Chloride 105 (98-107) mmol/L Carbon Dioxide 27 (22-30) mmol/L Anion Gap 13.8 (5-15) MEQ/L BUN 28 H (7-17) mg/dL Creatinine 1.15 H (0.52-1.04) mg/dL Estimated GFR 49.6 ML/MIN Glucose 134 H (74-106) mg/dL Calcium 8.9 (8.4-10.2) mg/dL Total Bilirubin 0.50 (0.2-1.3) mg/dL AST 28 (14-36) U/L ALT 19 (0-35) U/L Alkaline Phosphatase 87 (38-126) U/L Troponin I < 0.012 (0.000-0.034) ng/mL NT-Pro-B Natriuret Pep 70.6 (0-900) pg/mL Serum Total Protein 6.6 (6.3-8.2) g/dL Albumin 4.0 (3.5-5.0) g/dL 08/23/21 Range/Units 08:50 WBC 9.5 (4.0-10.5) K/mm3 RBC 4.51 (4.1-5.4) M/mm3 Hgb 13.1 (12.0-16.0) gm/dl Hct 41.5 (35-47) % MCV 92.0 (78-100) fl MCH 29.0 (26-32) pg MCHC 31.6 L (32-36) g/dl RDW 13.9 (11.5-14.0) % Plt Count 274 (150-450) K/mm3 MPV 9.2 (7.5-11.0) fl Gran % 74.5 H (36.0-66.0) % Eos # (Auto) 0.09 (0-0.5) Absolute Lymphs (auto) 1.52 (1.0-4.6) Absolute Monos (auto) 0.80 (0.0-1.3) Lymphocytes % 16.0 L (24.0-44.0) % Monocytes % 8.4 (0.0-12.0) % Eosinophils % 0.9 (0.00-5.0) % Basophils % 0.2 (0.0-0.4) % Absolute Granulocytes 7.07 H (1.4-6.9) Basophils # 0.02 (0-0.4) D-Dimer (215-500) ng/mL Sodium (137-145) mmol/L Potassium (3.5-5.1) mmol/L Chloride (98-107) mmol/L Carbon Dioxide (22-30) mmol/L Anion Gap (5-15) MEQ/L BUN (7-17) mg/dL Creatinine (0.52-1.04) mg/dL Estimated GFR ML/MIN Glucose (74-106) mg/dL Calcium (8.4-10.2) mg/dL Total Bilirubin (0.2-1.3) mg/dL AST (14-36) U/L ALT (0-35) U/L Alkaline Phosphatase (38-126) U/L Troponin I (0.000-0.034) ng/mL NT-Pro-B Natriuret Pep (0-900) pg/mL Serum Total Protein (6.3-8.2) g/dL Albumin (3.5-5.0) g/dL - Progress Progress: improved Air Movement: good Progress Note: 08/23/21 11:56 All laboratory data and CAT scan data discussed with the patient. Patient has almost complete resolution of Covid related pneumonia but does have some scarring left and also has caused some pulmonary hypertension which is causing dilatation of pulmonary artery. All other laboratory data including troponin are normal. Patient EKG is also normal. I talked to patient in detail and explained her all the lab results and CAT scan data including some post reflux of Covid pneumonia what she had. I advised her to go and see her primary care physician and consider getting cardiology work- up as well as pulmonary work-up. Blood Culture(s) Obtained: No Antibiotics given: No Counseled pt/family regarding: lab results, diagnosis, need for follow-up, rad results - Departure Departure Disposition: Home Clinical Impression: Shortness of breath, D-dimer, elevated, Pulmonary hypertension assoc with unclear multi-factorial mechanisms Hypertension Qualifiers: Hypertension type: primary hypertension Qualified Code(s): I10 - Essential (primary) hypertension Condition: Stable Critical Care Time: Yes Critical Care Time(excluding separately billable procedures): Critical 30-74 mins Referrals: LEEANN CHRISTIANSEN [Primary Care Provider] - Follow Up with PCP/3 days Instructions: Pulmonary Hypertension in Adults, Shortness of Breath (Dyspnea) (DC) Additional Instructions: Discharge/Care Plan KALLIEEMILY DUNCAN was seen on 08/23/21 in the Emergency Room. The patient was counseled regarding Diagnosis,Lab results, Imaging studies, need for follow up and when to return to the Emergency Room. Prescriptions given: Discharge Note I have spoken with the patient and/or caregivers. I have explained the patient's condition, diagnosis and treatment plan based on the information available to me at this time. I have answered the patient's and/or caregiver's questions and addressed any concerns. The patient and/or caregivers have as good understanding of the patient's diagnosis, condition and treatment plan as can be expected at this point. The vital signs have been stable. The patient's condition is stable and appropriate for discharge from the emergency department. The patient will pursue further outpatient evaluation with the primary care physician or other designated or consulting physician as outlined in the discharge instructions. The patient and/or caregivers are agreeable to this plan of care and follow-up instructions have been explained in detail. The patient and/or caregivers have received these instruction. The patient/and or caregivers are aware that any significant change in condition or worsening of symptoms should prompt an immediate return to this or the closest emergency department or call 911. EMILY ARREGUIN was seen on 08/23/21 n the Emergency Room. At that time you were treated for an emergent condition, during your visit Laboratory, Radiology and/or other procedures may have been ordered. It is very important that you follow-up with your Primary Care Physician LEEANN CHRISTIANSEN within the next 24-48 hours to review your Emergency Room visit and the final results of testing that was ordered. Some test results such as Urine Cultures, Blood Cultures, and other cultures if ordered will not be finalized for 24-48 hours. If you do not have a Primary Care Provider please call the medical records department at [phone] to obtain a copy of your results or you may sign into our patient portal to obtain these results by visiting us @ [email or web address] and completing the following steps: 1. Click on the Patient Portal link 2. Click the Patient Self Enrollment Link to complete the enrollment form and entering your 3. Once the enrollment form is completed you will receive an email with a temporary ID and password at the email address you provided. 4. Next choose a user name and password. Your user name must be at least 4 characters long and your password must be at least 4 characters long. 5. Choose a security question from the list and provide your answer to the question. If you already have signed into the Health Portal you may access your Health Care Information 20/06 by the following steps: 1. Login to our website @ [email or web address] 2. Enter your original user name and password. FAQS The [facility] Health Portal is an online tool that contains your Lab Results, Radiology Reports, Visit History, Discharge Instructions and Health Summary Lab and Radiology Results will not be available for 72 hours on the portal. The Portal is a secure site, passwords are encryted and URLs are re-written so they cannot be copied and pasted. You and authorized family members are the only ones who can access your Portal. Also there is a timeout feature that protects your information if you leave the Portal page open. If you have technical difficulty please use the Contact Us link on the page this will allow you to submit any questions you have regarding the Portal or you may contact the Medical Record Department at [phone]. You came to the emergency room with shortness of breath and we have run some emergent lab to rule out emergent causes. Your CAT scan has showed some scarring in your lungs as well as increased pressure in your lungs. So we advise you to follow-up with your primary care doctor and consider further evaluation by machine assembler supervisor and audiologist if necessary after discussing with your primary care physician. Prescriptions: Albuterol Sulfate [Albuterol Sulfate Hfa] 18 gm IH QID #1 inh
[2021-08-23 09:18] LABS: Absolute Neutrophil Ct (ANC) 7.07 (1.4-6.9); BASOPHIL % 0.2 % (0.0-0.4); Basophil (Absolute #) 0.02 (0-0.4); Eosinophil % 0.9 % (0.00-5.0); Eosinophil (Absolute #) 0.09 (0-0.5); Hematocrit 41.5 % (35-47); Hemoglobin 13.1 gm/dl (12.0-16.0); Lymphocyte (Absolute #) 1.52 (1.0-4.6); Mean Corpuscular Hgb Concent. 31.6 g/dl (32-36); Mean Platelet Volume 9.2 fl (7.5-11.0); Monocytes % 8.4 % (0.0-12.0); Neutrophil % 74.5 % (36.0-66.0); Platelet Count 274 K/mm3 (150-450); Red Blood Count 4.51 M/mm3 (4.1-5.4); Red Cell Distribution Width 13.9 % (11.5-14.0); White Blood Count 9.5 K/mm3 (4.0-10.5)
[2021-08-23] MEDS ORDERED: Sodium Chloride 0.9% 1000 ML 1,000 ML ONE (09:39)
[2021-08-23 09:53] VITALS: O2SAT 99
[2021-08-23 10:03] LABS: ANION GAP 13.8 MEQ/L (5-15); BILIRUBIN,TOTAL 0.5 mg/dL (0.2-1.3); Calcium 8.9 mg/dL (8.4-10.2); Creatinine 1 1.15 mg/dL (0.52-1.04); EST GLOMERULAR FILTRATION RATE 49.6 ML/MIN; NT PRO BNP 70.6 pg/mL (0-900); Potassium 4.7 mmol/L (3.5-5.1); Total Protein 6.6 g/dL (6.3-8.2)
[2021-08-23 11:39] VITALS: PULSE 60
[2021-08-23 12:40] VITALS: BP 176/81
--- NOTE | 2021-08-23 18:55 | XRAY ---
Indication: Short of breath. Covid 15 September 2020 Multiple contiguous axial images obtained through the chest without contrast. Comparison: September 11, 2020. Lungs are inflated and now clear. Stable incidental left lower lobe calcified granuloma. Heart not enlarged again with CABG surgery. Aorta is mildly transcribed without aneurysm. No pathologic mediastinal lymphadenopathy. Stable 1.5 cm right thyroid hypodense nodule/cyst. Osseous structures intact again with mild osteopenia, flowing osteophytes throughout the spine, and sternotomy wires. Limited upper abdomen again demonstrates fatty liver and a few calcified splenic granulomas. Impression: 1. Again right thyroid hypodense nodule/cyst, fatty liver, chronic bony findings, and old granulomatous disease. 2. Remaining CT chest without contrast exam is negative. Comment: Preliminary interpretation made by [facility]. No critical discrepancy.
--- NOTE | 2021-08-23 18:57 | XRAY ---
Indication: Short of breath. Comparison: September 10, 2020. PA/lateral chest is now clear with stable incidental left lower lobe calcified granuloma. Heart not enlarged again with CABG surgery. Bony thorax intact again with osteopenia and degenerative changes. Impression: Nonacute chest with chronic features.
== END 2021-08-23 12:40 | disposition home or self-care (01) ==
LOC: ED 08:26
DX: R06.02 Shortness of breath (principal); R79.1 Abnormal coagulation profile; I27.20 Pulmonary hypertension, unspecified; I10 Essential (primary) hypertension; E11.9 Type 2 diabetes mellitus without complications; E78.5 Hyperlipidemia, unspecified; Z79.899 Other long term (current) drug therapy
CPT/HCPCS: 36000; 36415; 71046; 71250; 80053; 83880; 84484; 85025; 85379; 93005; 94640; 94760; 99284; 99291; J7609; A9270-GY

== ENCOUNTER 2022-06-19 15:52 | Emergency (ER) | payer MEDICARE ==
[2022-06-19 16:19] LABS: Absolute Neutrophil Ct (ANC) 8.44 x10^3/uL (1.4-6.9); Basophil (Absolute #) 0.05 x10^3/uL (0-0.4); Eosinophil % 0.9 % (0.00-5.0); Hematocrit 38.3 % (35-47); Hemoglobin 12.5 g/dL (12.0-16.0); Lymphocyte (Absolute #) 1.32 x10^3/uL (1.0-4.6); Mean Cell Volume 89.7 fL (78-100); Mean Corpuscular Hemoglobin 29.3 pg (26-32); Mean Corpuscular Hgb Concent. 32.6 g/dL (32-36); Mean Platelet Volume 8.7 fL (7.5-11.0); Monocyte (Absolute #) 1.03 x10^3/uL (0.0-1.3); Monocytes % 9.4 % (0.0-12.0); Neutrophil % 76.9 % (36.0-66.0); Platelet Count 286 x10^3/uL (150-450); Red Blood Count 4.27 x10^6/uL (4.1-5.4); Red Cell Distribution Width 14.4 % (11.5-14.0)
[2022-06-19 16:28] LABS: INR 1.01 (0.8-3.0); PROTIME 10.7 SECONDS (9.4-12.5); PTT 24.3 SECONDS (25.1-36.5)
--- NOTE | 2022-06-19 16:34 | ERPHSYRPT ---
- History of Present Illness Source: patient, EMS Exam Limitations: no limitations Patient Subjective Stated Complaint: dizziness, weakness "for quite a long time, but today it was different". hypoglycemia today fsbs 48 1 hr [employer] Triage Nursing Assessment: pt to ED by EMS c/o dizziness and weakness "for quite a long time, but today it was different" and hypoglycemia today. EMS reports bs 48 1 hr [employer], pt ate and bs was 70 on EMS arrival and improved to 80s in route to ED. FSBS in ED 96. pt A&Ox4. denies neurological hx. denies pain at this time. Physician History: 71 yo wf brought in by EMS after having a near-syncopal episode where her gl ucose was 44. Pt states that she has had dizziness for several months which is being worked up by Dr. Conroy who has adjusted her BP. She ate some peanut butter which raised her glucose to mid 70's. She had a mild BYRNES which resolved. Pt has chronic dyspnea which is no worse than usual. She was nauseated but denies vomiting/diarrhea/melena/hematochezia/dysuria/hematuria/cough. Witnessed: unwitnessed Prior Episodes: single episode today Timing/Duration: today, resolved prior to arrival Precipitating Factors: lightheadedness, nausea Context: standing Loss of Consciousness: no loss of consciousness Charcter of event(s): felt faint Allergies/Adverse Reactions: ketorolac [From Toradol] Allergy (Verified 06/19/22 16:08) Difficulty Swallowing Home Medications: Enalapril Maleate 10 mg PO DAILY 02/13/19 [History] Insulin NPH Human Isophane [Novolin N] 36 units SQ HS 02/13/19 [History] Rosuvastatin Calcium [Crestor] 10 mg PO DAILY 02/13/19 [History] Insulin Regular, Human [NovoLIN R] 12 unit SQ DINNER 02/15/19 [History] Aspirin EC 81 mg [Ecotrin 81 mg] 81 mg PO DAILY 03/13/20 [History] Insulin NPH Human Isophane [Humulin N] 38 unit SQ QAM 09/10/20 [History] Insulin Regular, Human [Novolin R] 17 unit SQ LUNCH 09/10/20 [History] Insulin Regular, Human [Novolin R] 17 units SQ BREAKFAST 09/10/20 [History] Amlodipine Besylate 5 mg [Norvasc 5 mg] 5 mg PO DAILY 06/19/22 [History] Meclizine HCl 25 mg [Antivert 25 mg] 25 mg PO DAILY PRN PRN 06/19/22 [History] Hx Tetanus, Diphtheria Vaccination/Date Given: No Hx Influenza Vaccination/Date Given: No Hx Pneumococcal Vaccination/Date Given: No Immunizations Up to Date: No Travel Risk - International Travel Have you traveled outside of the country in past 3 weeks: No - Coronavirus Screening Are you exhibiting any of the following symptoms?: No Close contact with a COVID-19 positive Pt in past 14-21 Days: No - Vaccine Status Have you recieved a Covid-19 vaccination: No - Past Medical History Pertinent Past Medical History: Yes Neurological History: No Pertinent History ENT History: Cataracts Cardiac History: Coronary Artery Disease, Hypertension Respiratory History: No Pertinent History Endocrine Medical History: Diabetes Type II Musculoskeletal History: No Pertinent History GI Medical History: No Pertinent History History: No Pertinent History Psycho-Social History: No Pertinent History Female Reproductive Disorders: No Pertinent History - Past Surgical History Past Surgical History: Yes Neuro Surgical History: No Pertinent History Cardiac: CABG, Cardiac Catheterization Respiratory: No Pertinent History Gastrointestinal: No Pertinent History Genitourinary: No Pertinent History Musculoskeletal: Other Female Surgical History: Hysterectomy, Section Other Surgical History: abd tumor removed, carpal tunnel. quadrupal bypass 2006 - Social History Smoking Status: Former smoker Exposure to second hand smoke: No Drug Use: none Patient Lives Alone: Yes Significant Family History: no pertinent family hx - Review of Systems Constitutional: No Symptoms, Weakness Eyes: No Symptoms Ears, Nose, & Throat: No Ear Pain, No Ear Discharge, No Hearing Changes, No Tinnitus, No Nose Pain, No Nose Congestion, No Nose Discharge, No Sinus Drainage, No Epistaxis, No Mouth Pain, No Mouth Swelling, No Loose Teeth, No Throat Pain, No Throat Swelling, No Hoarse, No Painful Swallowing, No Snoring, No Stridor Respiratory: No Symptoms, Dyspnea Cardiac: No Symptoms, Syncope (Near) Abdominal/Gastrointestinal: No Symptoms, Nausea Genitourinary Symptoms: No Symptoms Musculoskeletal: No Symptoms Skin: No Symptoms Neurological: Dizziness, Headache (Resolved), No Focal Weakness, No Gait Changes Psychological: No Symptoms Endocrine: No Symptoms Hematologic/Lymphatic: No Symptoms Immunological/Allergic: No Symptoms Physical Exam - Nursing Vital Signs Nursing Vital Signs: Initial Vital Signs Temperature 97.0 F 06/19/22 15:53 Pulse Rate 76 06/19/22 15:53 Respiratory Rate 18 06/19/22 15:53 Blood Pressure 147/45 06/19/22 15:53 O2 Sat by Pulse Oximetry 96 06/19/22 15:53 Pain Scale Pain Intensity 0 Systolic BP elevated - [place] Coma Scale Best Eye Response ([place]): (4) open spontaneously Best Verbal Response (Brittany): (5) oriented Best Motor Response (Brittany): (6) obeys commands [place] Total: 15 - Physical Exam General Appearance: no apparent distress Eye Exam: bilateral eye: normal inspection, PERRL, EOMI Ears, Nose, Throat Exam: normal ENT inspection, TMs normal, pharynx normal, moist mucous membranes Neck Exam: normal inspection, non-tender, supple, full range of motion, No meningismus, No mass, No Brudzinski, No Kernig's, No carotid bruit Respiratory: normal breath sounds, lungs clear, airway intact Cardiovascular: regular rate/rhythm, normal heart sounds, normal peripheral pulses, capillary refill <2 sec, No murmur Gastrointestinal: soft, normal bowel sounds, No tenderness Back Exam: normal inspection, normal range of motion, No CVA tenderness, No vertebral tenderness Extremity Exam: normal inspection, normal range of motion Peripheral Pulses: carotid (R): 2+, carotid (L): 2+ Mental Status: alert, oriented x 3, cooperative picker tender Exam: normal hearing, normal speech, PERRL, tongue midline, No abnormal eye position, No abnormal gag reflex Coordination/Gait: normal finger to nose, abnormal gait (Pt's gait somewhat off balance, but pt states that gait is basesline for her for several months.) Motor/Sensory: no motor deficit, no sensory deficit, no pronator drift, negative Babinski's sign, No pronator drift (R), No pronator drift (L), No sensory deficit DTR: bicep (R): 2+, bicep (L): 2+ Skin Exam: normal color, warm, dry SpO2 Interpretation: normal SpO2: 96 O2 Delivery: Room Air - Course Nursing assessment & vital signs reviewed: Yes EKG Interpreted by Me: RATE (NSR/R73/Normal QT-QTc/Poor Rwave progression/No acute ST changes) - Radiology Exams Chest X-ray Interpretation: Interpreted by me (CXR/NAD) - CT Exams Head CT Interpretation: Tele-radiologist Report (CT head-CTA head neg per [facility]) Other CT Interpretation: Tele-radiologist Report (CTA neck <50% Bilateral Carotid artery stenosis) Ordered Tests: Active Orders 24 hr Category Date Time Status EKG-ER Only STAT Care 06/19/22 15:57 Completed CHEST 1 VIEW (PORTABLE) Stat Exams 06/19/22 15:[address] ANGIOGRAPHY NECK [CT] Stat Exams 06/19/22 18:30 Taken CTA HEAD W AND/OR WO CONTRAST [CT] Stat Exams 06/19/22 18:26 Taken HEAD WITHOUT CONTRAST [CT] Stat Exams 06/19/22 16:31 Completed CBC W DIFF Stat Lab 06/19/22 16:13 Completed CMP Stat Lab 06/19/22 16:13 Completed Lactic Acid Stat Lab 06/19/22 16:13 Completed NT PRO BNP Stat Lab 06/19/22 16:13 Completed POCT GLUCOSE Stat Lab 06/19/22 17:03 Completed POCT GLUCOSE Stat Lab 06/19/22 17:43 Completed POCT GLUCOSE Stat Lab 06/19/22 19:41 Completed PROTIME WITH INR Stat Lab 06/19/22 16:13 Completed PTT Stat Lab 06/19/22 16:13 Completed TROPONIN Q3H Lab 06/19/22 16:13 Completed TROPONIN Q3H Lab 06/19/22 18:44 Completed UA W/RFX CULTURE Stat Lab 06/19/22 19:58 Completed Lab/Rad Data: Laboratory Result Diagrams 06/19/22 16:13 06/19/22 16:13 Laboratory Results 06/19/22 06/19/22 06/19/22 Range/Units 19:58 19:41 18:44 WBC (4.0-10.5) x10^3/uL RBC (4.1-5.4) x10^6/uL Hgb (12.0-16.0) g/dL Hct (35-47) % MCV (78-100) fL MCH (26-32) pg MCHC (32-36) g/dL RDW (11.5-14.0) % Plt Count (150-450) x10^3/uL MPV (7.5-11.0) fL Gran % (36.0-66.0) % Immature Gran % (Auto) (0.00-0.4) % Nucleat RBC Rel Count (0.00-0.1) % Eos # (Auto) (0-0.5) x10^3/uL Immature Gran # (Auto) (0.00-0.03) x10^3u/L Absolute Lymphs (auto) (1.0-4.6) x10^3/uL Absolute Monos (auto) (0.0-1.3) x10^3/uL Absolute Nucleated RBC (0.00-0.01) x10^3u/L Lymphocytes % (24.0-44.0) % Monocytes % (0.0-12.0) % Eosinophils % (0.00-5.0) % Basophils % (0.0-0.4) % Absolute Granulocytes (1.4-6.9) x10^3/uL Basophils # (0-0.4) x10^3/uL PT (9.4-12.5) SECONDS INR (0.8-3.0) APTT (25.1-36.5) SECONDS Sodium (137-145) mmol/L Potassium (3.5-5.1) mmol/L Chloride (98-107) mmol/L Carbon Dioxide (22-30) mmol/L Anion Gap (5-15) MEQ/L BUN (7-17) mg/dL Creatinine (0.52-1.04) mg/dL Estimated GFR ML/MIN Glucose (74-106) mg/dL POC Glucometer 96 (74 to 106) mg/dL Lactic Acid (0.4-2.0) Calcium (8.4-10.2) mg/dL Total Bilirubin (0.2-1.3) mg/dL AST (14-36) U/L ALT (0-35) U/L Alkaline Phosphatase (38-126) U/L Troponin I < 0.012 (0.000-0.034) ng/mL NT-Pro-B Natriuret Pep (0-900) pg/mL Serum Total Protein (6.3-8.2) g/dL Albumin (3.5-5.0) g/dL Urinalys Dipstick Clnc MAIN LAB Urine Color YELLOW (YELLOW) Urine Appearance CLEAR (CLEAR) Urine pH 6.0 (5-6) Ur Specific [place] 1.020 (1.005-1.025) POC Urine Protein Conf NEGATIVE (Negative) Urine Ketones NEGATIVE (NEGATIVE) Urine Nitrite NEGATIVE (NEGATIVE) Urine Bilirubin NEGATIVE (NEGATIVE) Urine Urobilinogen 0.2 (0-1) mg/dL Urine Leukocytes NEGATIVE (NEGATIVE) Urine WBC (Auto) 3-5 (0-5) /HPF Urine RBC (Auto) 0-2 (0-2) /HPF U Epithel Cells (Auto) RARE (FEW) /HPF Urine Bacteria (Auto) RARE (NEGATIVE) /HPF Urine RBC TRACE-INTACT (0-5) Roby/ul Urine Mucus (Auto) SLIGHT (NEGATIVE) /HPF Ur Culture Indicated? NO Urine Glucose NEGATIVE (NEGATIVE) mg/dL Influenza Type A Ag (NEGATIVE) Influenza Type B Ag (NEGATIVE) RSV (PCR) (Negative) SARS-CoV-2 (PCR) (NEGATIVE) 06/19/22 06/19/22 06/19/22 Range/Units 17:43 17:03 16:13 WBC (4.0-10.5) x10^3/uL RBC (4.1-5.4) x10^6/uL Hgb (12.0-16.0) g/dL Hct (35-47) % MCV (78-100) fL MCH (26-32) pg MCHC (32-36) g/dL RDW (11.5-14.0) % Plt Count (150-450) x10^3/uL MPV (7.5-11.0) fL Gran % (36.0-66.0) % Immature Gran % (Auto) (0.00-0.4) % Nucleat RBC Rel Count (0.00-0.1) % Eos # (Auto) (0-0.5) x10^3/uL Immature Gran # (Auto) (0.00-0.03) x10^3u/L Absolute Lymphs (auto) (1.0-4.6) x10^3/uL Absolute Monos (auto) (0.0-1.3) x10^3/uL Absolute Nucleated RBC (0.00-0.01) x10^3u/L Lymphocytes % (24.0-44.0) % Monocytes % (0.0-12.0) % Eosinophils % (0.00-5.0) % Basophils % (0.0-0.4) % Absolute Granulocytes (1.4-6.9) x10^3/uL Basophils # (0-0.4) x10^3/uL PT (9.4-12.5) SECONDS INR (0.8-3.0) APTT (25.1-36.5) SECONDS Sodium (137-145) mmol/L Potassium (3.5-5.1) mmol/L Chloride (98-107) mmol/L Carbon Dioxide (22-30) mmol/L Anion Gap (5-15) MEQ/L BUN (7-17) mg/dL Creatinine (0.52-1.04) mg/dL Estimated GFR ML/MIN Glucose (74-106) mg/dL POC Glucometer 82 84 (74 to 106) mg/dL Lactic Acid (0.4-2.0) Calcium (8.4-10.2) mg/dL Total Bilirubin (0.2-1.3) mg/dL AST (14-36) U/L ALT (0-35) U/L Alkaline Phosphatase (38-126) U/L Troponin I (0.000-0.034) ng/mL NT-Pro-B Natriuret Pep (0-900) pg/mL Serum Total Protein (6.3-8.2) g/dL Albumin (3.5-5.0) g/dL Urinalys Dipstick Clnc Urine Color (YELLOW) Urine Appearance (CLEAR) Urine pH (5-6) Ur Specific [place] (1.005-1.025) POC Urine Protein Conf (Negative) Urine Ketones (NEGATIVE) Urine Nitrite (NEGATIVE) Urine Bilirubin (NEGATIVE) Urine Urobilinogen (0-1) mg/dL Urine Leukocytes (NEGATIVE) Urine WBC (Auto) (0-5) /HPF Urine RBC (Auto) (0-2) /HPF U Epithel Cells (Auto) (FEW) /HPF Urine Bacteria (Auto) (NEGATIVE) /HPF Urine RBC (0-5) Roby/ul Urine Mucus (Auto) (NEGATIVE) /HPF Ur Culture Indicated? Urine Glucose (NEGATIVE) mg/dL Influenza Type A Ag NEGATIVE (NEGATIVE) Influenza Type B Ag NEGATIVE (NEGATIVE) RSV (PCR) NEGATIVE (Negative) SARS-CoV-2 (PCR) NEGATIVE (NEGATIVE) 06/19/22 06/19/22 06/19/22 Range/Units 16:13 16:13 16:13 WBC (4.0-10.5) x10^3/uL RBC (4.1-5.4) x10^6/uL Hgb (12.0-16.0) g/dL Hct (35-47) % MCV (78-100) fL MCH (26-32) pg MCHC (32-36) g/dL RDW (11.5-14.0) % Plt Count (150-450) x10^3/uL MPV (7.5-11.0) fL Gran % (36.0-66.0) % Immature Gran % (Auto) (0.00-0.4) % Nucleat RBC Rel Count (0.00-0.1) % Eos # (Auto) (0-0.5) x10^3/uL Immature Gran # (Auto) (0.00-0.03) x10^3u/L Absolute Lymphs (auto) (1.0-4.6) x10^3/uL Absolute Monos (auto) (0.0-1.3) x10^3/uL Absolute Nucleated RBC (0.00-0.01) x10^3u/L Lymphocytes % (24.0-44.0) % Monocytes % (0.0-12.0) % Eosinophils % (0.00-5.0) % Basophils % (0.0-0.4) % Absolute Granulocytes (1.4-6.9) x10^3/uL Basophils # (0-0.4) x10^3/uL PT 10.7 (9.4-12.5) SECONDS INR 1.01 (0.8-3.0) APTT 24.3 L (25.1-36.5) SECONDS Sodium 138 (137-145) mmol/L Potassium 4.7 (3.5-5.1) mmol/L Chloride 108 H (98-107) mmol/L Carbon Dioxide 23 (22-30) mmol/L Anion Gap 12.1 (5-15) MEQ/L BUN 35 H (7-17) mg/dL Creatinine 1.19 H (0.52-1.04) mg/dL Estimated GFR 47.5 ML/MIN Glucose 92 (74-106) mg/dL POC Glucometer (74 to 106) mg/dL Lactic Acid (0.4-2.0) Calcium 8.6 (8.4-10.2) mg/dL Total Bilirubin 0.40 (0.2-1.3) mg/dL AST 24 (14-36) U/L ALT 18 (0-35) U/L Alkaline Phosphatase 77 (38-126) U/L Troponin I < 0.012 (0.000-0.034) ng/mL NT-Pro-B Natriuret Pep 120 (0-900) pg/mL Serum Total Protein 6.3 (6.3-8.2) g/dL Albumin 3.6 (3.5-5.0) g/dL Urinalys Dipstick Clnc Urine Color (YELLOW) Urine Appearance (CLEAR) Urine pH (5-6) Ur Specific [place] (1.005-1.025) POC Urine Protein Conf (Negative) Urine Ketones (NEGATIVE) Urine Nitrite (NEGATIVE) Urine Bilirubin (NEGATIVE) Urine Urobilinogen (0-1) mg/dL Urine Leukocytes (NEGATIVE) Urine WBC (Auto) (0-5) /HPF Urine RBC (Auto) (0-2) /HPF U Epithel Cells (Auto) (FEW) /HPF Urine Bacteria (Auto) (NEGATIVE) /HPF Urine RBC (0-5) Roby/ul Urine Mucus (Auto) (NEGATIVE) /HPF Ur Culture Indicated? Urine Glucose (NEGATIVE) mg/dL Influenza Type A Ag (NEGATIVE) Influenza Type B Ag (NEGATIVE) RSV (PCR) (Negative) SARS-CoV-2 (PCR) (NEGATIVE) 06/19/22 06/19/22 Range/Units 16:13 16:13 WBC 11.0 H (4.0-10.5) x10^3/uL RBC 4.27 (4.1-5.4) x10^6/uL Hgb 12.5 (12.0-16.0) g/dL Hct 38.3 (35-47) % MCV 89.7 (78-100) fL MCH 29.3 (26-32) pg MCHC 32.6 (32-36) g/dL RDW 14.4 H (11.5-14.0) % Plt Count 286 (150-450) x10^3/uL MPV 8.7 (7.5-11.0) fL Gran % 76.9 H (36.0-66.0) % Immature Gran % (Auto) 0.3 (0.00-0.4) % Nucleat RBC Rel Count 0.0 (0.00-0.1) % Eos # (Auto) 0.10 (0-0.5) x10^3/uL Immature Gran # (Auto) 0.03 (0.00-0.03) x10^3u/L Absolute Lymphs (auto) 1.32 (1.0-4.6) x10^3/uL Absolute Monos (auto) 1.03 (0.0-1.3) x10^3/uL Absolute Nucleated RBC 0.00 (0.00-0.01) x10^3u/L Lymphocytes % 12.0 L (24.0-44.0) % Monocytes % 9.4 (0.0-12.0) % Eosinophils % 0.9 (0.00-5.0) % Basophils % 0.5 (0.0-0.4) % Absolute Granulocytes 8.44 H (1.4-6.9) x10^3/uL Basophils # 0.05 (0-0.4) x10^3/uL PT (9.4-12.5) SECONDS INR (0.8-3.0) APTT (25.1-36.5) SECONDS Sodium (137-145) mmol/L Potassium (3.5-5.1) mmol/L Chloride (98-107) mmol/L Carbon Dioxide (22-30) mmol/L Anion Gap (5-15) MEQ/L BUN (7-17) mg/dL Creatinine (0.52-1.04) mg/dL Estimated GFR ML/MIN Glucose (74-106) mg/dL POC Glucometer (74 to 106) mg/dL Lactic Acid 1.4 (0.4-2.0) Calcium (8.4-10.2) mg/dL Total Bilirubin (0.2-1.3) mg/dL AST (14-36) U/L ALT (0-35) U/L Alkaline Phosphatase (38-126) U/L Troponin I (0.000-0.034) ng/mL NT-Pro-B Natriuret Pep (0-900) pg/mL Serum Total Protein (6.3-8.2) g/dL Albumin (3.5-5.0) g/dL Urinalys Dipstick Clnc Urine Color (YELLOW) Urine Appearance (CLEAR) Urine pH (5-6) Ur Specific [place] (1.005-1.025) POC Urine Protein Conf (Negative) Urine Ketones (NEGATIVE) Urine Nitrite (NEGATIVE) Urine Bilirubin (NEGATIVE) Urine Urobilinogen (0-1) mg/dL Urine Leukocytes (NEGATIVE) Urine WBC (Auto) (0-5) /HPF Urine RBC (Auto) (0-2) /HPF U Epithel Cells (Auto) (FEW) /HPF Urine Bacteria (Auto) (NEGATIVE) /HPF Urine RBC (0-5) Roby/ul Urine Mucus (Auto) (NEGATIVE) /HPF Ur Culture Indicated? Urine Glucose (NEGATIVE) mg/dL Influenza Type A Ag (NEGATIVE) Influenza Type B Ag (NEGATIVE) RSV (PCR) (Negative) SARS-CoV-2 (PCR) (NEGATIVE) - Progress Progress: improved Progress Note: 06/19/22 20:16 Pt wo focal weakness/chest pain in ER Pt is still dizzy w uneven gait. She states that this is her baseline for several months and is no worse. Problem is being worked up by Dr. Conroy for this problem and has MRI of brain scheduled for Tuesday. Pt wants to go home and refuses observation admit at this time. 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
[2022-06-19 16:36] LABS: ALBUMIN 3.6 g/dL (3.5-5.0); ANION GAP 12.1 MEQ/L (5-15); BILIRUBIN,TOTAL 0.4 mg/dL (0.2-1.3); Calcium 8.6 mg/dL (8.4-10.2); Creatinine 1 1.19 mg/dL (0.52-1.04); EST GLOMERULAR FILTRATION RATE 47.5 ML/MIN; Potassium 4.7 mmol/L (3.5-5.1); Total Protein 6.3 g/dL (6.3-8.2)
[2022-06-19 16:53] LABS: INFLUENZA A NEGATIVE (NEGATIVE); INFLUENZA B NEGATIVE (NEGATIVE); RESPIRATORY SYNCTIAL VIRUS NEGATIVE (Negative); SARS-CoV-2 Xpert Express NEGATIVE (NEGATIVE)
--- NOTE | 2022-06-19 19:37 | XRAY ---
Indication: Dizziness several months. Lethargy. Multiple contiguous axial images obtained through the head without contrast. Comparison: None Age-appropriate global atrophy. No acute intracranial hemorrhage, abnormal extra-axial fluid collection, or mass effect. Fourth ventricle is midline without hydrocephalus. Paranasal sinuses and mastoid air cells are clear. Impression: Negative CT head without contrast exam. Comment: Preliminary interpretation made by [facility]. No critical discrepancy.
--- NOTE | 2022-06-19 19:37 | XRAY ---
Indication: Dizziness and lethargy. Comparison: August 25, 2021 Portable chest remains clear with again incidental tiny left base calcified granuloma. Heart not enlarged again with CABG. Bony thorax intact again with osteopenia and degenerative changes. Impression: Continued nonacute chest with chronic features.
[2022-06-19 20:05] VITALS: BP 170/74; PULSE 79
[2022-06-19 20:09] LABS: Appearance CLEAR (CLEAR); Bilirubin NEGATIVE (NEGATIVE); Glucose NEGATIVE (NEGATIVE); Ketones NEGATIVE (NEGATIVE); RBC TRACE-INTACT Ery/ul (0-5)
[2022-06-19 20:10] LABS: Dipstick done @ ? MAIN LAB; Nitrite NEGATIVE (NEGATIVE); Protein,Urine Dip NEGATIVE (Negative); Urobilinogen 0.2 mg/dL (0-1)
[2022-06-19 20:11] LABS: Bacteria RARE /HPF (NEGATIVE); Epithelial Cells RARE /HPF (FEW); Mucus SLIGHT /HPF (NEGATIVE); RBC 0-2 /HPF (0-2)
[2022-06-19 20:18] LABS: Urine Cultured Indicated? NO
[2022-06-19 20:19] VITALS: O2SAT 96
--- NOTE | 2022-06-20 07:25 | XRAY ---
Indication: Dizziness several months. Lethargy. Negative CT head without contrast. Conventional contrast enhanced CTA neck performed using 100 cc Isovue 370 contrast. Two-dimensional sagittal and coronal reformatted images obtained. Additional 3-dimensional reformatted images obtained using a separate workstation. Comparison: None Visualized aortic arch demonstrates normal branching right brachiocephalic, left common carotid, and left subclavian arteries with punctate calcifications. Examination of the right carotid circulation demonstrates minimal eccentric calcified plaquing in the mid common carotid and mild eccentric calcified plaquing in the cortical. Remaining visualized internal carotid and external carotid arteries are normal in CTA appearance. Examination of the left carotid circulation demonstrates minimal eccentric calcified plaquing in the mid common carotid, carotid bulb, and origin internal carotid arteries. Remaining visualized external carotid artery is normal in CTA appearance. Vertebral arteries are bilaterally symmetric without critical stenosis, obstruction, or AV malformation. Visualized soft tissues demonstrates heterogeneous enlarged right thyroid gland with a few subcentimeter hypodense nodules/cysts. No pathologic cervical/supraclavicular lymphadenopathy. Osseous structures demineralized consistent with patient's age. Incidental C2-C3 congenital fusion and minimal degenerative changes of the visualized cervical thoracic spine. Lung apices are clear. Impression: 1. Minimal arteriosclerotic plaquing bilaterally as detailed. Negative for critical stenosis/obstruction. 2. Incidental heterogeneous enlarged right thyroid gland with subcentimeter hypodense nodules/cysts. 3. Chronic bony findings. Comment: Preliminary interpretation made by [facility]. No critical stenosis.
--- NOTE | 2022-06-20 07:28 | XRAY ---
Indication: Dizziness several months. Lethargy. Negative CT head without contrast. Conventional contrast enhanced CTA head performed using 100 cc Isovue 370 contrast. Two-dimensional sagittal and coronal reformatted images obtained. Additional 3-dimensional reformatted images obtained using a separate workstation. Comparison: None Distal internal carotid arteries are bilaterally symmetric without critical stenosis, obstruction, or AV malformation. Normal carotid terminus with normal branching A1 and M1 segments bilaterally. More distal anterior cerebral and middle cerebral arteries are normal in CTA appearance bilaterally. Posterior circulation demonstrates widely patent distal vertebral arteries with the left slightly larger in caliber. Remaining basilar, left/right posterior cerebral, and left/right superior cerebellar arteries are normal in CTA appearance. Venous drainage/sinuses are unremarkable. No abnormal enhancing intra or extra-axial mass. Impression: Normal CTA head with contrast exam. Comment: Preliminary interpretation made by [facility]. No critical discrepancy.
== END 2022-06-19 20:28 | disposition home or self-care (01) ==
LOC: ED 15:52
DX: E11.649 Type 2 diabetes mellitus with hypoglycemia without coma (principal); R55 Syncope and collapse; R11.0 Nausea; I10 Essential (primary) hypertension; Z79.4 Long term (current) use of insulin; Z79.899 Other long term (current) drug therapy; Z28.310 Unvaccinated for COVID-19
CPT/HCPCS: 0241U; 36415; 70450; 70496; 70498; 71045; 80053; 81015; 82947; 83605; 83880; 84484; 85025; 85610; 85730; 93005; 99284

== ENCOUNTER 2022-09-01 16:56 | Emergency (ER) | payer MEDICARE ==
[2022-09-01] MEDS ORDERED: MORPHINE SULFATE 4 MG INJ IV ONE (17:46)
[2022-09-01] MEDS ORDERED: PROTONIX 40 MG IV IV ONE ×2 (17:46→18:10)
[2022-09-01] MEDS ORDERED: Zofran 4 MG/2 ML VIAL IV ONE (17:46)
[2022-09-01] MEDS ORDERED: Sodium Chloride 0.9% 1000 ML 1,000 ML IV STA (17:46)
--- NOTE | 2022-09-01 17:46 | ERPHSYRPT ---
- History of Present Illness Time Seen by Provider: 09/01/22 17:45 Historian: patient, family Exam Limitations: no limitations Patient Subjective Stated Complaint: Pt began having stomach pains this morning and called EMS but then had a large bowel movement and then the EMS showed up and did an EKG and checked her out and she felt a lot better and she declined going to the hospital, later on she began having stomach pains again and had a couple more bowel movements that had a significant amount of bright blood in it, pt also arrived with blood in her underwear Triage Nursing Assessment: Pt brought to the ER by her daughter, rates abdominal pain as 09/06, had a bowel movement as soon as she got here and there was bright red blood mixed in it, N&V, last intake at 0800 today, last colonoscopy in 2018 or 2019 and was told she had diverticulitis, Physician History: This is a morbidly obese 71-year-old white female who began having some lower, infraumbilical abdominal pain that was significant. She originally had called EMS to be transported. However in the interim she had a large bowel movement and there was sudden improvement in her pain. She declined to go to the emergency department that time. The abdominal pain recurred and she had a few more bowel movements with a couple episodes of bright red blood per rectum. She also had significant nausea and vomiting. Patient's last colonoscopy was 2 to 3 years ago and she was told she had diverticulosis. Patient is morbidly obese. She has hyperlipidemia, insulin-dependent diabetes and hypertension. She denies chest pain and she denies shortness of breath. She has not had a fever. She has no bleeding or clotting disorders. She is not on any anticoagulation therapy. Timing/Duration: today Activities at Onset: none Quality: cramping Abdominal Pain Onset Location: periumbilical, suprapubic Pain Radiation: no radiation Severity of Pain-Max: moderate Severity of Pain-Current: moderate Modifying Factors: Improves With: vomiting Associated Symptoms: nausea, vomiting, No chest pain, No fever/chills, No shortness of breath Previous symptoms: no prior history Allergies/Adverse Reactions: ketorolac [From Toradol] Allergy (Verified 09/01/22 17:39) Difficulty Swallowing Home Medications: Enalapril Maleate 10 mg PO BID 02/13/19 [History] Insulin NPH Human Isophane [Novolin N] 26 units SQ HS 02/13/19 [History] Rosuvastatin Calcium [Crestor] 10 mg PO DAILY 02/13/19 [History] Insulin Regular, Human [NovoLIN R] 12 unit SQ DINNER 02/15/19 [History] Aspirin EC 81 mg [Ecotrin 81 mg] 81 mg PO DAILY 03/13/20 [History] Insulin NPH Human Isophane [Humulin N] 36 unit SQ QAM 09/10/20 [History] Insulin Regular, Human [Novolin R] 17 units SQ BREAKFAST 09/10/20 [History] Amlodipine Besylate 5 mg [Norvasc 5 mg] 2.5 mg PO DAILY 06/19/22 [History] Meclizine HCl 25 mg [Antivert 25 mg] 25 mg PO DAILY PRN PRN 06/19/22 [History] Hx Tetanus, Diphtheria Vaccination/Date Given: No Hx Influenza Vaccination/Date Given: No Hx Pneumococcal Vaccination/Date Given: No Travel Risk - International Travel Have you traveled outside of the country in past 3 weeks: No - Coronavirus Screening Are you exhibiting any of the following symptoms?: No Close contact with a COVID-19 positive Pt in past 14-21 Days: No - Vaccine Status Have you recieved a Covid-19 vaccination: No - Review of Systems Constitutional: No Symptoms Eyes: No Symptoms Ears, Nose, & Throat: No Symptoms Respiratory: No Symptoms Cardiac: No Symptoms Abdominal/Gastrointestinal: Abdominal Pain, Nausea, Vomiting, Hematochezia Genitourinary Symptoms: No Symptoms Musculoskeletal: No Symptoms Skin: No Symptoms Neurological: No Symptoms Psychological: No Symptoms Endocrine: No Symptoms Hematologic/Lymphatic: No Symptoms - Past Medical History Pertinent Past Medical History: Yes Neurological History: No Pertinent History ENT History: Cataracts Cardiac History: Coronary Artery Disease, Hypertension Respiratory History: No Pertinent History Endocrine Medical History: Diabetes Type II Musculoskeletal History: No Pertinent History GI Medical History: No Pertinent History History: No Pertinent History Psycho-Social History: No Pertinent History Female Reproductive Disorders: No Pertinent History - Past Surgical History Past Surgical History: Yes Neuro Surgical History: No Pertinent History Cardiac: CABG, Cardiac Catheterization Respiratory: No Pertinent History Gastrointestinal: No Pertinent History Genitourinary: No Pertinent History Musculoskeletal: Other Female Surgical History: Hysterectomy, Section Other Surgical History: abd tumor removed, carpal tunnel. quadrupal bypass 2006 - Social History Smoking Status: Former smoker Exposure to second hand smoke: No Drug Use: none Patient Lives Alone: Yes Significant Family History: no pertinent family hx - Nursing Vital Signs Nursing Vital Signs: Initial Vital Signs Temperature 96.0 F 09/01/22 17:23 Pulse Rate 81 09/01/22 17:23 Blood Pressure 118/53 09/01/22 17:23 O2 Sat by Pulse Oximetry 100 09/01/22 17:23 Pain Scale Pain Intensity 5 - Physical Exam General Appearance: mild distress, alert, anxiety, obese Eye Exam: PERRL/EOMI, eyes nml inspection Ears, Nose, Throat Exam: normal ENT inspection, moist mucous membranes Neck Exam: normal inspection, non-tender, supple, full range of motion Respiratory Exam: normal breath sounds, lungs clear, airway intact, No chest tenderness, No respiratory distress Cardiovascular Exam: regular rate/rhythm, normal heart sounds, normal peripheral pulses Gastrointestinal/Abdomen Exam: soft, normal bowel sounds, tenderness (Infraumbilical and suprapubic region midline), guarding, rebound Pelvic Exam: not done Rectal Exam: not done Back Exam: normal inspection, normal range of motion, No CVA tenderness, No vertebral tenderness Extremity Exam: normal inspection, normal range of motion, pelvis stable Neurologic Exam: alert, oriented x 3, cooperative, shift production 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 II-XII nml as tested, normal mood/affect, nml cerebellar function, nml station & gait Skin Exam: normal color, warm, dry Lymphatic Exam: No adenopathy SpO2 Interpretation: normal SpO2: 100 O2 Delivery: Room Air - Course Nursing assessment & vital signs reviewed: Yes Ordered Tests: Active Orders 24 hr Category Date Time Status IV Insertion STAT Care 09/01/22 17:46 Active ABDOMEN AND PELVIS W/0 CONTRAS [CT] Stat Exams 09/01/22 17:46 Taken AMYLASE Stat Lab 09/01/22 17:58 Completed CBC W DIFF Stat Lab 09/01/22 17:58 Completed CMP Stat Lab 09/01/22 17:58 Completed LIPASE Stat Lab 09/01/22 17:58 Completed PT INR [PROTIME WITH INR] Stat Lab 09/01/22 17:58 Completed UA W/RFX CULTURE Stat Lab 09/01/22 Ordered Medication Summary Discontinued Medications Generic Name Dose Route Start Last Admin Trade Name Freq PRN Reason Stop Dose Admin Sodium Chloride 1,000 mls @ 999 mls/hr 09/01/22 17:46 09/01/22 19:36 Sodium Chloride 0.9% 1000 Ml IV 09/01/22 18:46 Infused .Q1H1M STA Infusion Sodium Chloride Confirm 09/01/22 18:10 Sodium Chloride 0.9% 1000 Ml Administered 09/01/22 18:11 Dose 1,000 mls @ ud .ROUTE .STK-MED ONE Morphine Sulfate 4 mg 09/01/22 17:46 09/01/22 18:12 Morphine Sulfate 4 Mg/Ml Injection IV 09/01/22 17:47 4 mg STAT ONE Administration Morphine Sulfate Confirm 09/01/22 18:10 Morphine Sulfate 4 Mg/Ml Injection Administered 09/01/22 18:11 Dose 4 mg .ROUTE .STK-MED ONE Ondansetron HCl 4 mg 09/01/22 17:46 09/01/22 18:12 Ondansetron Hcl 4 Mg/2 Ml Vial IV 09/01/22 17:47 4 mg STAT ONE Administration Ondansetron HCl Confirm 09/01/22 18:11 Ondansetron Hcl 4 Mg/2 Ml Vial Administered 09/01/22 18:12 Dose 4 mg .ROUTE .STK-MED ONE Pantoprazole Sodium 40 mg 09/01/22 17:46 09/01/22 18:12 Pantoprazole 40 Mg Vial IV 09/01/22 17:47 40 mg STAT ONE Administration Pantoprazole Sodium Confirm 09/01/22 18:10 Pantoprazole 40 Mg Vial Administered 09/01/22 18:11 Dose 40 mg IV .STK-MED ONE Lab/Rad Data: Laboratory Result Diagrams 09/01/22 17:58 09/01/22 17:58 Laboratory Results 09/01/22 09/01/22 09/01/22 Range/Units 17:58 17:58 17:58 WBC 15.3 H (4.0-10.5) x10^3/uL RBC 4.74 (4.1-5.4) x10^6/uL Hgb 14.1 (12.0-16.0) g/dL Hct 43.4 (35-47) % MCV 91.6 (78-100) fL MCH 29.7 (26-32) pg MCHC 32.5 (32-36) g/dL RDW 13.2 (11.5-14.0) % Plt Count 304 (150-450) x10^3/uL MPV 9.2 (7.5-11.0) fL Gran % 84.4 H (36.0-66.0) % Immature Gran % (Auto) 0.3 (0.00-0.4) % Nucleat RBC Rel Count 0.0 (0.00-0.1) % Eos # (Auto) 0.01 (0-0.5) x10^3/uL Immature Gran # (Auto) 0.04 H (0.00-0.03) x10^3u/L Absolute Lymphs (auto) 1.27 (1.0-4.6) x10^3/uL Absolute Monos (auto) 1.02 (0.0-1.3) x10^3/uL Absolute Nucleated RBC 0.00 (0.00-0.01) x10^3u/L Lymphocytes % 8.3 L (24.0-44.0) % Monocytes % 6.7 (0.0-12.0) % Eosinophils % 0.1 (0.00-5.0) % Basophils % 0.2 (0.0-0.4) % Absolute Granulocytes 12.96 H (1.4-6.9) x10^3/uL Basophils # 0.03 (0-0.4) x10^3/uL PT 10.5 (9.4-12.5) SECONDS INR 0.99 (0.8-3.0) Sodium 141 (137-145) mmol/L Potassium 4.2 (3.5-5.1) mmol/L Chloride 106 (98-107) mmol/L Carbon Dioxide 26 (22-30) mmol/L Anion Gap 13.8 (5-15) MEQ/L BUN 22 H (7-17) mg/dL Creatinine 1.05 H (0.52-1.04) mg/dL Estimated GFR 54.9 ML/MIN Glucose 94 (74-106) mg/dL Calcium 9.2 (8.4-10.2) mg/dL Total Bilirubin 0.80 (0.2-1.3) mg/dL AST 36 (14-36) U/L ALT 25 (0-35) U/L Alkaline Phosphatase 74 (38-126) U/L Serum Total Protein 7.3 (6.3-8.2) g/dL Albumin 4.4 (3.5-5.0) g/dL Amylase 52 (30-110) U/L Lipase 21 L (23-300) U/L - Progress Progress: improved, pain not gone completely Progress Note: 09/01/22 19:41 CAT scan of the abdomen pelvis without contrast shows mild diver reticulitis of the sigmoid colon. There is no evidence of abscess. There is no evidence of free air or perforation. Counseled pt/family regarding: lab results, diagnosis, need for follow-up, rad results - Departure Departure Disposition: Home Clinical Impression: Sigmoid diverticulitis Condition: Stable Critical Care Time: No Referrals: LEEANN CHRISTIANSEN [Primary Care Provider] - Follow up/PCP as directed Additional Instructions: Clear liquid diet for 24 hours. Take antibiotics as prescribed. Follow-up with your primary care physician for further evaluation and management. Return to the emergency department if symptoms worsen Prescriptions: Ondansetron ODT 4 MG [Zofran Odt 4 mg] 4 mg PO Q6H PRN PRN #10 tablet PRN Reason: Vomiting Hydrocodone/APAP 5/325 [[place] 5/325 mg] 1 each PO Q8H PRN PRN #8 tablet MDD 3 PRN Reason: Pain Ciprofloxacin [Cipro 500 MG] 500 mg PO BID #14 tablet Metronidazole 500 mg [Flagyl 500 MG] 500 mg PO TID #21 tablet
[2022-09-01 18:01] LABS: Absolute Neutrophil Ct (ANC) 12.96 x10^3/uL (1.4-6.9); Basophil (Absolute #) 0.03 x10^3/uL (0-0.4); Eosinophil % 0.1 % (0.00-5.0); Eosinophil (Absolute #) 0.01 x10^3/uL (0-0.5); Hematocrit 43.4 % (35-47); Hemoglobin 14.1 g/dL (12.0-16.0); Lymphocyte (Absolute #) 1.27 x10^3/uL (1.0-4.6); Lymphocytes % 8.3 % (24.0-44.0); Mean Cell Volume 91.6 fL (78-100); Mean Corpuscular Hemoglobin 29.7 pg (26-32); Mean Corpuscular Hgb Concent. 32.5 g/dL (32-36); Mean Platelet Volume 9.2 fL (7.5-11.0); Monocyte (Absolute #) 1.02 x10^3/uL (0.0-1.3); Monocytes % 6.7 % (0.0-12.0); Neutrophil % 84.4 % (36.0-66.0); Platelet Count 304 x10^3/uL (150-450); Red Blood Count 4.74 x10^6/uL (4.1-5.4); Red Cell Distribution Width 13.2 % (11.5-14.0); White Blood Count 15.3 x10^3/uL (4.0-10.5)
[2022-09-01] MEDS ORDERED: Sodium Chloride 0.9% 1000 ML 1,000 ML ONE (18:10)
[2022-09-01] MEDS ORDERED: MORPHINE SULFATE 4 MG INJ ONE (18:10)
[2022-09-01] MEDS ORDERED: Zofran 4 MG/2 ML VIAL ONE (18:11)
[2022-09-01 18:24] LABS: ALBUMIN 4.4 g/dL (3.5-5.0); ANION GAP 13.8 MEQ/L (5-15); BILIRUBIN,TOTAL 0.8 mg/dL (0.2-1.3); Calcium 9.2 mg/dL (8.4-10.2); Creatinine 1 1.05 mg/dL (0.52-1.04); EST GLOMERULAR FILTRATION RATE 54.9 ML/MIN; INR 0.99 (0.8-3.0); PROTIME 10.5 SECONDS (9.4-12.5); Potassium 4.2 mmol/L (3.5-5.1); Total Protein 7.3 g/dL (6.3-8.2)
[2022-09-01 19:35] VITALS: BP 144/70; PULSE 86
[2022-09-01] MEDS ORDERED: Flagyl 500 MG PO ONE (19:40)
[2022-09-01] MEDS ORDERED: Levofloxacin 500 MG Tablet PO ONE (19:40)
[2022-09-01] MEDS ORDERED: Levofloxacin 500 MG Tablet ONE (19:44)
[2022-09-01] MEDS ORDERED: Flagyl 500 MG ONE (19:44)
[2022-09-01 19:45] VITALS: O2SAT 100
--- NOTE | 2022-09-02 08:56 | XRAY ---
Indication: Lower abdomen pain and rectal bleeding. Chronic constipation. Multiple contiguous axial images obtained through the abdomen and pelvis without contrast. Comparison: None Lung bases demonstrates minimal subsegmental atelectasis/scarring and small left lower lobe calcified granuloma. No infiltrate or effusion. Heart not enlarged. Noncontrasted stomach and bowel loops nonobstructed. Mild scattered descending and sigmoid diverticulosis. Mid to distal descending and proximal sigmoid colon demonstrates mild pericolonic stranding favoring mild diverticulitis. No free fluid/air. There has been appendectomy and hysterectomy. Punctate gallstone and a few incidental splenic calcified granulomas. Remaining liver, gallbladder, pancreas, spleen, adrenal glands, kidneys, ureters, and bladder are unremarkable for noncontrast exam. Mild scattered aortoiliac calcifications without AAA. Osseous structures intact with mild osteopenia and flowing osteophytes throughout the visualized spine. Impression: 1. Mild descending and sigmoid diverticulitis. No complications. 2. Punctate gallstone. Sonogram may yield further information if clinically warranted. 3. Chronic findings including arteriosclerotic disease, chronic bony findings, and old granulomatous disease.
== END 2022-09-01 20:10 | disposition home or self-care (01) ==
LOC: ED 16:56
DX: K57.32 Diverticulitis of large intestine without perforation or abscess without bleeding (principal); R10.2 Pelvic and perineal pain; R10.33 Periumbilical pain; R11.2 Nausea with vomiting, unspecified; K62.5 Hemorrhage of anus and rectum; E78.5 Hyperlipidemia, unspecified; E11.9 Type 2 diabetes mellitus without complications; I10 Essential (primary) hypertension; Z79.4 Long term (current) use of insulin; Z79.899 Other long term (current) drug therapy; Z28.310 Unvaccinated for COVID-19; Z79.891 Long term (current) use of opiate analgesic
CPT/HCPCS: 36000; 36415; 74176; 80053; 82150; 83690; 85025; 85610; 96360; 96374; 96375; 99284; J2270; J2405; A9270-GY

== ENCOUNTER 2024-12-01 16:35 | Emergency (ER) | payer MEDICARE ==
[2024-12-01] MEDS ORDERED: Sodium Chloride 0.9% 1000 ML 1,000 ML ONE (17:01)
[2024-12-01] MEDS ORDERED: D50W 50 ml Abboject IV ONE (17:01)
--- NOTE | 2024-12-01 17:07 | ERPHSYRPT ---
- History of Present Illness Time Seen by Provider: 12/01/24 17:04 Source: patient Exam Limitations: no limitations Patient Subjective Stated Complaint: c/o shortness or breath and dizziness Triage Nursing Assessment: patient brought self into ED with c/o shortness of breath and dizziness. denies pain, blood sugar of 52 per our glucometer, patient states she was on her way home from her daughters house and started to feel dizzy. Patient has clear lung sounds, hypertensive, skin w/n/d, pulses normal, patient doesn't appear to be in any distress at this time. Physician History: c/o shortness or breath and dizziness for 6-8 hours Patient is 74-year-old female with significant past medical history of type 2 diabetes mellitus insulin-dependent hypertension was visiting her daughter and suddenly started feeling short of breath and dizzy all the symptoms started few hours ago approximately 6 to 8 hours ago. She started getting more and more dizzy spell and short of breath so she was brought into the emergency room. She denies any fever chills nausea or vomiting or heavy pressure type of chest pain. She denies any blood in the stool or urine. Patient blood sugar by a glucometer was found to be 50. Timing/Duration: today Severity: moderate Associated Symptoms: shortness of breath, No nausea, No vomiting, No abdominal pain, No diaphoresis, No chills, No chest pain, No fever, No headaches, No loss of appetite, No syncope, No seizure, No weakness Allergies/Adverse Reactions: ketorolac [From Toradol] Allergy (Verified 12/01/24 16:51) Difficulty Swallowing Home Medications: Enalapril Maleate 10 mg PO BID 02/13/19 [History] Insulin NPH Human Isophane [Novolin N] 26 units SQ HS 02/13/19 [History] Rosuvastatin Calcium [Crestor] 10 mg PO DAILY 02/13/19 [History] Insulin Regular, Human [NovoLIN R] 12 unit SQ DINNER 02/15/19 [History] Aspirin EC 81 mg [Ecotrin 81 mg] 81 mg PO DAILY 03/13/20 [History] Insulin NPH Human Isophane [Humulin N] 36 unit SQ QAM 09/10/20 [History] Insulin Regular, Human [Novolin R] 17 units SQ BREAKFAST 09/10/20 [History] Amlodipine Besylate 5 mg [Norvasc 5 mg] 2.5 mg PO DAILY 06/19/22 [History] Meclizine HCl 25 mg [Antivert 25 mg] 25 mg PO DAILY PRN PRN 06/19/22 [History] Hx Tetanus, Diphtheria Vaccination/Date Given: No Hx Influenza Vaccination/Date Given: No Hx Pneumococcal Vaccination/Date Given: No Travel Risk - International Travel Have you traveled outside of the country in past 3 weeks: No - Emerging Infectious Disease Are you exhibiting symptoms associated with any current EIDs: Yes Symptoms: Shortness of Breath - Review of Systems Constitutional: No Fever, No Chills Eyes: No Symptoms Ears, Nose, & Throat: No Symptoms Respiratory: Dyspnea, No Cough Cardiac: No Chest Pain, No Edema, No Syncope Abdominal/Gastrointestinal: No Abdominal Pain, No Nausea, No Vomiting, No Diarrhea Genitourinary Symptoms: No Dysuria Musculoskeletal: No Back Pain, No Neck Pain Skin: No Rash Neurological: Dizziness, No Focal Weakness, No Sensory Changes Psychological: No Symptoms Endocrine: No Symptoms Hematologic/Lymphatic: No Symptoms Immunological/Allergic: No Symptoms All Other Systems: Reviewed and Negative - Past Medical History Pertinent Past Medical History: Yes Neurological History: No Pertinent History ENT History: Cataracts Cardiac History: Coronary Artery Disease, Hypertension Respiratory History: No Pertinent History Endocrine Medical History: Diabetes Type II Musculoskeletal History: No Pertinent History GI Medical History: No Pertinent History History: No Pertinent History Psycho-Social History: No Pertinent History Female Reproductive Disorders: No Pertinent History - Past Surgical History Past Surgical History: Yes Neuro Surgical History: No Pertinent History Cardiac: CABG, Cardiac Catheterization Respiratory: No Pertinent History Gastrointestinal: No Pertinent History Genitourinary: No Pertinent History Musculoskeletal: Other Female Surgical History: Hysterectomy, Section Other Surgical History: abd tumor removed, carpal tunnel. quadrupal bypass 2006 Significant Family History: no pertinent family hx - Social History Smoking Status: Never smoker Exposure to second hand smoke: No Drug Use: none Patient Lives Alone: Yes - Social Determinants of Health Will the patient participate in the screening: Yes Do you worry about a steady place to live?: No Do you have any problems with any of the following?: No known problems In the past 12 months,have you had to go without utilities?: No Transportation Issues: No Has anyone in your support network made you feel unsafe?: No Have you or anyone in your house had to go without enough: No - Nursing Vital Signs Nursing Vital Signs: Initial Vital Signs Pulse Rate 69 12/01/24 16:36 Respiratory Rate 19 12/01/24 16:36 Blood Pressure 180/58 12/01/24 16:36 O2 Sat by Pulse Oximetry 100 12/01/24 16:36 Pain Scale Pain Intensity 4 - Physical Exam General Appearance: moderate distress, alert Eye Exam: PERRL/EOMI, eyes nml inspection Ears, Nose, Throat Exam: normal ENT inspection, TMs normal, pharynx normal, moist mucous membranes Neck Exam: normal inspection, non-tender, supple, full range of motion Respiratory Exam: diminished breath sounds, No respiratory distress Cardiovascular Exam: regular rate/rhythm, normal heart sounds, normal peripheral pulses Gastrointestinal/Abdomen Exam: soft, normal bowel sounds, No tenderness, No mass Back Exam: normal inspection, normal range of motion, No CVA tenderness, No vertebral tenderness Extremity Exam: normal inspection, normal range of motion, pelvis stable Neurologic Exam: alert, oriented x 3, cooperative, normal mood/affect, nml cerebellar function, nml station & gait, sensation nml, No motor deficits Skin Exam: normal color, warm, dry, No rash Lymphatic Exam: No adenopathy SpO2 Interpretation: normal SpO2: 100 O2 Delivery: Room Air - Course Nursing assessment & vital signs reviewed: Yes EKG Interpreted by Me: Sinus Rhythm, Non-specific ST Changes - Radiology Exams Chest X-ray Interpretation: Interpreted by me, Reviewed by me, No Pneumonia - CT Exams Head CT Interpretation: Tele-radiologist Report Ordered Tests: Active Orders 24 hr Category Date Time Status EKG-ER Only STAT Care 12/01/24 16:51 Active NPO (ED) STAT Care 12/01/24 16:52 Active Oxygen-ED Only Nasal Cannula 2 lpm Care 12/01/24 16:51 Active Oxygen-ED Only Nasal Cannula 2 lpm Care 12/01/24 16:51 Active POCT Glucose Check STAT Care 12/01/24 17:09 Active CHEST 1 VIEW (PORTABLE) Stat Exams 12/01/24 16:53 Taken HEAD WITHOUT CONTRAST [CT] Stat Exams 12/01/24 16:52 Completed CBC W DIFF Stat Lab 12/01/24 18:04 Completed CMP Stat Lab 12/01/24 18:04 Completed NT PRO BNPII Stat Lab 12/01/24 18:04 Completed POCT GLUCOSE Stat Lab 12/01/24 18:24 Completed TROPONIN Q4H Lab 12/01/24 18:04 Completed Medication Summary Discontinued Medications Generic Name Dose Route Start Last Admin Trade Name Juan Manuelq PRN Reason Stop Dose Admin Dextrose 50 ml 12/01/24 16:54 12/01/24 17:14 Dextrose 50%-Water 50 Ml Abboject IV 12/01/24 16:55 50 ml STAT ONE Administration Dextrose Confirm 12/01/24 17:01 Dextrose 50%-Water 50 Ml Abboject Administered 12/01/24 17:02 Dose 50 ml IV .STK-MED ONE Sodium Chloride 1,000 mls @ 999 mls/hr 12/01/24 16:51 12/01/24 17:15 Sodium Chloride 0.9% 1000 Ml IV 12/01/24 17:51 999 mls/hr .Q1H1M STA Administration Sodium Chloride Confirm 12/01/24 17:01 Sodium Chloride 0.9% 1000 Ml Administered 12/01/24 17:02 Dose 1,000 mls @ ud .ROUTE .STK-MED ONE Labetalol HCl 10 mg 12/01/24 17:07 12/01/24 18:12 Labetalol Hcl 20 Mg/4 Ml Disp.Syringe IV 12/01/24 17:08 Not Given STAT ONE Lab/Rad Data: Laboratory Result Diagrams 12/01/24 18:04 12/01/24 18:04 Laboratory Results 12/01/24 12/01/24 12/01/24 Range/Units 18:24 18:04 18:04 WBC (3.98-10.04) x10^3/uL RBC (3.93-5.22) x10^6/uL Hgb (11.2-15.7) g/dL Hct (34.1-44.9) % MCV (79.4-94.8) fL MCH (25.6-32.2) pg MCHC (32.2-35.5) g/dL RDW (11.7-14.4) % Plt Count (182-369) x10^3/uL MPV (9.4-12.3) fL Gran % (34.0-71.1) % Immature Gran % (Auto) (0.001-0.429) % Nucleat RBC Rel Count (0.00-0.2) % Eos # (Auto) (0.04-0.36) x10^3/uL Immature Gran # (Auto) (0.001-0.031) x10^3u/L Absolute Lymphs (auto) (1.18-3.74) x10^3/uL Absolute Monos (auto) (0.24-0.86) x10^3/uL Absolute Nucleated RBC (0.00-0.012) x10^3u/L Lymphocytes % (19.3-51.7) % Monocytes % (4.7-12.5) % Eosinophils % (0.7-5.8) % Basophils % (0.1-1.2) % Absolute Granulocytes (1.56-6.13) x10^3/uL Basophils # (0.01-0.08) x10^3/uL Sodium 141 (135-145) mmol/L Potassium 4.4 (3.5-5.1) mmol/L Chloride 107 (98-107) mmol/L Carbon Dioxide 27 (22-30) mmol/L Anion Gap 11.3 (5-15) MEQ/L BUN 23 H (7-17) mg/dL Creatinine 0.86 (0.52-1.04) mg/dL Estimated GFR 70.9 ML/MIN Glucose 97 (74-106) mg/dL POC Glucometer 218 H (74 to 106) mg/dL Calcium 9.2 (8.4-10.2) mg/dL Total Bilirubin 0.60 (0.2-1.3) mg/dL AST 34 (14-36) U/L ALT 25 (0-35) U/L Alkaline Phosphatase 80 (38-126) U/L Troponin I < 0.012 (0.000-0.033) ng/mL NT-Pro-B Natriuret Pep 170 (<300) pg/mL Serum Total Protein 6.7 (6.3-8.2) g/dL Albumin 4.1 (3.5-5.0) g/dL Influenza Type A Ag (NEGATIVE) Influenza Type B Ag (NEGATIVE) RSV (PCR) (NEGATIVE) SARS-CoV-2 (PCR) (NEGATIVE) 12/01/24 12/01/24 Range/Units 18:04 17:31 WBC 7.6 (3.98-10.04) x10^3/uL RBC 4.46 (3.93-5.22) x10^6/uL Hgb 12.9 (11.2-15.7) g/dL Hct 39.7 (34.1-44.9) % MCV 89.0 (79.4-94.8) fL MCH 28.9 (25.6-32.2) pg MCHC 32.5 (32.2-35.5) g/dL RDW 13.0 (11.7-14.4) % Plt Count 249 (182-369) x10^3/uL MPV 8.9 L (9.4-12.3) fL Gran % 70.3 (34.0-71.1) % Immature Gran % (Auto) 0.1 (0.001-0.429) % Nucleat RBC Rel Count 0.0 (0.00-0.2) % Eos # (Auto) 0.11 (0.04-0.36) x10^3/uL Immature Gran # (Auto) 0.01 (0.001-0.031) x10^3u/L Absolute Lymphs (auto) 1.41 (1.18-3.74) x10^3/uL Absolute Monos (auto) 0.70 (0.24-0.86) x10^3/uL Absolute Nucleated RBC 0.00 (0.00-0.012) x10^3u/L Lymphocytes % 18.5 L (19.3-51.7) % Monocytes % 9.2 (4.7-12.5) % Eosinophils % 1.4 (0.7-5.8) % Basophils % 0.5 (0.1-1.2) % Absolute Granulocytes 5.35 (1.56-6.13) x10^3/uL Basophils # 0.04 (0.01-0.08) x10^3/uL Sodium (135-145) mmol/L Potassium (3.5-5.1) mmol/L Chloride (98-107) mmol/L Carbon Dioxide (22-30) mmol/L Anion Gap (5-15) MEQ/L BUN (7-17) mg/dL Creatinine (0.52-1.04) mg/dL Estimated GFR ML/MIN Glucose (74-106) mg/dL POC Glucometer (74 to 106) mg/dL Calcium (8.4-10.2) mg/dL Total Bilirubin (0.2-1.3) mg/dL AST (14-36) U/L ALT (0-35) U/L Alkaline Phosphatase (38-126) U/L Troponin I (0.000-0.033) ng/mL NT-Pro-B Natriuret Pep (<300) pg/mL Serum Total Protein (6.3-8.2) g/dL Albumin (3.5-5.0) g/dL Influenza Type A Ag NEGATIVE (NEGATIVE) Influenza Type B Ag NEGATIVE (NEGATIVE) RSV (PCR) NEGATIVE (NEGATIVE) SARS-CoV-2 (PCR) NEGATIVE (NEGATIVE) CLINICAL HISTORY: sudden dizziness COMPARISON: None. TECHNIQUE: An axial non-contrast CT scan of the brain was performed from the skull base to the high parietal region. One of the following dose reduction techniques were utilized for this exam: Automated exposure control, adjustment of the mA and/or kV according to patient size, use of iterative reconstruction. FINDINGS: Brain Parenchyma: No evidence of acute infarct, hemorrhage, or mass effect. Some hypodensities are seen in the bilateral cerebral subcortical and deep white matter, likely chronic microvascular ischemic changes. No other abnormal areas of hypo- or hyperattenuation. Ventricular System: Ventricles are normal in size and configuration. No evidence of hydrocephalus or ventricular enlargement. Subarachnoid Spaces: Mildy widened sulci and cisterns. No evidence of subarachnoid hemorrhage or extra-axial fluid collections. PatientID: [id number] Patient Name: EMILY ARREGUIN Exam Date: 12/01/2024 Procedure: HEAD WITHOUT CONTRAST page 1 of 2 Atherosclerotic vessels. Cerebellum and Brainstem: Normal size and signal. No masses, lesions, or areas of abnormal signal. Orbits: Normal appearance of the globes, optic nerves, and extraocular muscles. No evidence of orbital masses or abnormal signal. Sinuses: Clear paranasal sinuses. No evidence of sinusitis or mucosal thickening. Mastoid Air Cells: Clear mastoid air cells. No evidence of mastoiditis. Skull: Normal skull morphology. IMPRESSION: 1. No evidence of acute infarct, hemorrhage, or mass effect. 2. Chronic microvascular white matter ischemic changes and mild senile atrophy. 3. Suggest follow-up CT or MRI for further evaluation if clinically warranted. - Progress Progress: improved Counseled pt/family regarding: lab results, diagnosis, need for follow-up, rad results Medical Desision Making - Independent Historian Additional History obtained from: Family - Diagnostic Testing Diagnostic test were ordered, analyzed, and reviewed by me: Yes Radiological Interpretation: Interpreted by me, Reviewed by me, Teleradiologist Report - Risk of complications Low Risk: Low risk of morbidity from additional dx testing or treatment - Departure Departure Disposition: Home Clinical Impression: Shortness of breath, Dizziness, Hypoglycemia associated with diabetes, Dizziness, nonspecific Hypertension Qualifiers: Hypertension type: primary hypertension Qualified Code(s): I10 - Essential (primary) hypertension Condition: Stable Critical Care Time: No Referrals: LEEANN CHRISTIANSEN [Primary Care Provider] - Follow Up with PCP/3 days Instructions: Shortness of Breath (Dyspnea) (DC), Dizziness in adults - ED discharge instructions, Low blood sugar in adults - ED discharge instructions Additional Instructions: Discharge/Care Plan EMILY ARREGUIN was seen on 12/01/24 in the Emergency Room. The patient was counseled regarding Diagnosis,Lab results, Imaging studies, need for follow up and when to return to the Emergency Room. Prescriptions given: Discharge Note I have spoken with the patient and/or caregivers. I have explained the patient's condition, diagnosis and treatment plan based on the information available to me at this time. I have answered the patient's and/or caregiver's questions and addressed any concerns. The patient and/or caregivers have as good understanding of the patient's diagnosis, condition and treatment plan as can be expected at this point. The vital signs have been stable. The patient's condition is stable and appropriate for discharge from the emergency department. The patient will pursue further outpatient evaluation with the primary care physician or other designated or consulting physician as outlined in the discharge instructions. The patient and/or caregivers are agreeable to this plan of care and follow-up instructions have been explained in detail. The patient and/or caregivers have received these instruction. The patient/and or caregivers are aware that any significant change in condition or worsening of symptoms should prompt an immediate return to this or the closest emergency department or call 911. EMILY ARREGUIN was seen on 01/04/25 n the Emergency Room. At that time you were treated for an emergent condition, during your visit Laboratory, Radiology and/or other procedures may have been ordered. It is very important that you follow-up with your Primary Care Physician LEEANN CHRISTIANSEN within the next 24-48 hours to review your Emergency Room visit and the final results of testing that was ordered. Some test results such as Urine Cultures, Blood Cultures, and oth er cultures if ordered will not be finalized for 24-48 hours. If you do not have a Primary Care Provider please call the medical records department at [phone] ext [phone] to obtain a copy of your results or you may sign into our patient portal to obtain these results by visiting us @ [email or web address] and completing the following steps: 1. Click on the Patient Portal link 2. Click the Patient Self Enrollment Link to complete the enrollment form and entering your 3. Once the enrollment form is completed you will receive an email with a temporary ID and password at the email address you provided. 4. Next choose a user name and password. Your user name must be at least 4 characters long and your password must be at least 4 characters long. 5. Choose a security question from the list and provide your answer to the question. If you already have signed into the Health Portal you may access your Health Care Information 20/06 by the following steps: 1. Login to our website @ [email or web address] 2. Enter your original user name and password. FAQS The [facility] Health Portal is an online tool that contains your Lab Results, Radiology Reports, Visit History, Discharge Instructions and Health Summary Lab and Radiology Results will not be available for 72 hours on the portal. The Portal is a secure site, passwords are encryted and URLs are re-written so they cannot be copied and pasted. You and authorized family members are the only ones who can access your Portal. Also there is a timeout feature that protects your information if you leave the Portal page open. If you have technical difficulty please use the Contact Us link on the page this will allow you to submit any questions you have regarding the Portal or you may contact the Medical Record Department at [phone] ext [phone].
[2024-12-01] MEDS: D50W 50 ml Abboject IV ONE (17:14)
[2024-12-01] MEDS: Sodium Chloride 0.9% 1000 ML 1,000 ML IV STA (17:15)
--- NOTE | 2024-12-01 17:35 | XRAY ---
CLINICAL HISTORY: sudden dizziness COMPARISON: None. TECHNIQUE: An axial non-contrast CT scan of the brain was performed from the skull base to the high parietal region. One of the following dose reduction techniques were utilized for this exam: Automated exposure control, adjustment of the mA and/or kV according to patient size, use of iterative reconstruction. FINDINGS: Brain Parenchyma: No evidence of acute infarct, hemorrhage, or mass effect. Some hypodensities are seen in the bilateral cerebral subcortical and deep white matter, likely chronic microvascular ischemic changes. No other abnormal areas of hypo- or hyperattenuation. Ventricular System: Ventricles are normal in size and configuration. No evidence of hydrocephalus or ventricular enlargement. Subarachnoid Spaces: Mildy widened sulci and cisterns. No evidence of subarachnoid hemorrhage or extra-axial fluid collections. Atherosclerotic vessels. Cerebellum and Brainstem: Normal size and signal. No masses, lesions, or areas of abnormal signal. Orbits: Normal appearance of the globes, optic nerves, and extraocular muscles. No evidence of orbital masses or abnormal signal. Sinuses: Clear paranasal sinuses. No evidence of sinusitis or mucosal thickening. Mastoid Air Cells: Clear mastoid air cells. No evidence of mastoiditis. Skull: Normal skull morphology. IMPRESSION: 1. No evidence of acute infarct, hemorrhage, or mass effect. 2. Chronic microvascular white matter ischemic changes and mild senile atrophy. 3. Suggest follow-up CT or MRI for further evaluation if clinically warranted. [facility] ER was called at [phone] at 04:30 PM SUPERVISOR DRAWING, 12/01/2024, and Liliana, the Nurse was informed regarding the stroke results. Electronically Signed by: Jose Rascon MD. (12/01/2024 17:31:56 EST)
[2024-12-01 18:06] LABS: Absolute Neutrophil Ct (ANC) 5.35 x10^3/uL (1.56-6.13); BASOPHIL % 0.5 % (0.1-1.2); Basophil (Absolute #) 0.04 x10^3/uL (0.01-0.08); Eosinophil % 1.4 % (0.7-5.8); Eosinophil (Absolute #) 0.11 x10^3/uL (0.04-0.36); Hematocrit 39.7 % (34.1-44.9); Hemoglobin 12.9 g/dL (11.2-15.7); IMMATURE GRAN # 0.01 x10^3u/L (0.001-0.031); IMMATURE GRAN % 0.1 % (0.001-0.429); Lymphocyte (Absolute #) 1.41 x10^3/uL (1.18-3.74); Lymphocytes % 18.5 % (19.3-51.7); Mean Corpuscular Hemoglobin 28.9 pg (25.6-32.2); Mean Corpuscular Hgb Concent. 32.5 g/dL (32.2-35.5); Mean Platelet Volume 8.9 fL (9.4-12.3); Monocytes % 9.2 % (4.7-12.5); Neutrophil % 70.3 % (34.0-71.1); Platelet Count 249 x10^3/uL (182-369); Red Blood Count 4.46 x10^6/uL (3.93-5.22); White Blood Count 7.6 x10^3/uL (3.98-10.04)
[2024-12-01 18:09] LABS: INFLUENZA A NEGATIVE (NEGATIVE); INFLUENZA B NEGATIVE (NEGATIVE); RESPIRATORY SYNCTIAL VIRUS NEGATIVE (NEGATIVE); SARS-CoV-2 Xpert Express NEGATIVE (NEGATIVE)
[2024-12-01] MEDS: TRANDATE 20 MG/4 ML SYRINGE IV ONE (18:12)
[2024-12-01 18:28] LABS: ALBUMIN 4.1 g/dL (3.5-5.0); ANION GAP 11.3 MEQ/L (5-15); BILIRUBIN,TOTAL 0.6 mg/dL (0.2-1.3); Calcium 9.2 mg/dL (8.4-10.2); Creatinine 1 0.86 mg/dL (0.52-1.04); EST GLOMERULAR FILTRATION RATE 70.9 ML/MIN; Potassium 4.4 mmol/L (3.5-5.1); Total Protein 6.7 g/dL (6.3-8.2)
[2024-12-01 18:40] LABS: NT PRO BNPII 170 pg/mL (<300); TROPONIN < 0.012 ng/mL (0.000-0.033)
[2024-12-01 19:37] VITALS: BP 169/57; PULSE 66; RESP 19; O2SAT 99
--- NOTE | 2024-12-01 22:53 | XRAY ---
Indication: Short of breath. Comparison: June 19, 2022 Portable apical lordotic chest remains clear again with incidental tiny left base calcified granuloma. Heart not enlarged again with CABG. bony thorax intact again with osteopenia and mild degenerative changes. No new/acute findings. Impression: Continued nonacute chest with chronic features.
== END 2024-12-01 19:44 | disposition home or self-care (01) ==
LOC: ED 16:35
DX: R06.02 Shortness of breath (principal); R42 Dizziness and giddiness; E11.649 Type 2 diabetes mellitus with hypoglycemia without coma; I10 Essential (primary) hypertension; Z79.899 Other long term (current) drug therapy
CPT/HCPCS: 0241U; 36415; 70450; 71045; 80053; 82947; 83880; 84484; 85025; 93005; 96360; 96361; 96374; 99285

== ENCOUNTER 2025-03-13 10:10 | Emergency (ER) | payer MEDICARE ==
[2025-03-13 10:41] VITALS: TEMP 96.2
--- NOTE | 2025-03-13 11:06 | ERPHSYRPT ---
- History of Present Illness Historian: patient Exam Limitations: no limitations Patient Subjective Stated Complaint: Patient reports chest pain started yesterday, pain is intermitten and radiates felicity her left arm with shortness of breath and difficulty breathing. Patient notes she lives home alone. Triage Nursing Assessment: Patient is alert and oriented, no chest pain and no shortness of breath at thsi time. Patiet Physician History: Patient has an extensive cardiac history. She had a quadruple bypass about 20 years ago. She is having some chest pain today. It has resolved as of right now but it lasted a few minutes. It is in the substernal area. It did radiate to her left arm. Nothing really makes his symptoms better or worse. She is not short of breath now and has not had any shortness of breath. She does not have any palpitations. She describes the chest pain as heaviness. 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 She did not take any nitro today. She is currently pain-free. She does not have any nausea vomiting or diaphoresis. Nothing makes the symptoms better or worse. Nitro Today/Relief: no nitro taken today Aspirin Treatment Today: no aspirin today Allergies/Adverse Reactions: ketorolac [From Toradol] Allergy (Verified 03/13/25 10:42) Difficulty Swallowing Home Medications: Enalapril Maleate 20 mg PO BID 02/13/19 [History] Insulin NPH Human Isophane [Novolin N] 21 units SQ HS 02/13/19 [History] Rosuvastatin Calcium [Crestor] 40 mg PO DAILY 02/13/19 [History] Insulin Regular, Human [NovoLIN R] 10 unit SQ DINNER 02/15/19 [History] Aspirin EC 81 mg [Ecotrin 81 mg] 81 mg PO DAILY 03/13/20 [History] Insulin NPH Human Isophane [Humulin N] 32 unit SQ QAM 09/10/20 [History] Insulin Regular, Human [Novolin R] 19 units SQ BREAKFAST 09/10/20 [History] Meclizine HCl 25 mg [Antivert 25 mg] 25 mg PO DAILY PRN PRN 06/19/22 [History] Hx Tetanus, Diphtheria Vaccination/Date Given: No Hx Influenza Vaccination/Date Given: No Hx Pneumococcal Vaccination/Date Given: No Travel Risk - International Travel Have you traveled outside of the country in past 3 weeks: No - Emerging Infectious Disease Are you exhibiting symptoms associated with any current EIDs: No Symptoms: Shortness of Breath - Review of Systems Constitutional: No Symptoms Eyes: No Symptoms Ears, Nose, & Throat: No Symptoms Respiratory: No Symptoms Cardiac: Chest Pain All Other Systems: Reviewed and Negative - Past Medical History Pertinent Past Medical History: Yes Neurological History: No Pertinent History ENT History: Cataracts Cardiac History: Coronary Artery Disease, Hypertension Respiratory History: No Pertinent History Endocrine Medical History: Diabetes Type II Musculoskeletal History: No Pertinent History GI Medical History: No Pertinent History History: No Pertinent History Psycho-Social History: No Pertinent History Female Reproductive Disorders: No Pertinent History - Past Surgical History Past Surgical History: Yes Neuro Surgical History: No Pertinent History Cardiac: CABG, Cardiac Catheterization Respiratory: No Pertinent History Gastrointestinal: No Pertinent History Genitourinary: No Pertinent History Musculoskeletal: Other Female Surgical History: Hysterectomy, Section Other Surgical History: abd tumor removed, carpal tunnel. quadrupal bypass 2006 Significant Family History: no pertinent family hx - Social History Smoking Status: Never smoker Exposure to second hand smoke: No Drug Use: none - Social Determinants of Health Will the patient participate in the screening: Declined to provide - Nursing Vital Signs Nursing Vital Signs: Initial Vital Signs Temperature 96.2 F 03/13/25 10:10 Pulse Rate 62 03/13/25 10:10 Respiratory Rate 14 03/13/25 10:10 Blood Pressure 170/67 03/13/25 10:10 O2 Sat by Pulse Oximetry 99 03/13/25 10:10 Pain Scale Pain Intensity 0 - Physical Exam General Appearance: no apparent distress Eye Exam: PERRL/EOMI Respiratory Exam: normal breath sounds, lungs clear, No chest tenderness Cardiovascular Exam: regular rate/rhythm, normal heart sounds, normal peripheral pulses Gastrointestinal/Abdomen Exam: soft, normal bowel sounds Back Exam: normal inspection Extremity Exam: normal inspection Neurologic Exam: alert, oriented x 3, cooperative Skin Exam: normal color SpO2 Interpretation: normal SpO2: 99 - Course EKG Interpreted by Me: RATE, Sinus Rhythm, NORMAL AXIS, NORMAL QRS, Non-specific ST Changes Ordered Tests: Active Orders 24 hr Category Date Time Status EKG-ER Only STAT Care 03/13/25 11:03 Active CHEST 1 VIEW (PORTABLE) Stat Exams 03/13/25 11:03 Completed CBC W DIFF Stat Lab 03/13/25 11:22 Completed CMP Stat Lab 03/13/25 11:22 Completed TROPONIN Q4H Lab 03/13/25 11:22 Completed TROPONIN Q4H Lab 03/13/25 13:40 Completed TROPONIN Q4H Lab 03/13/25 19:15 Ordered Lab/Rad Data: Laboratory Result Diagrams 03/13/25 11:22 03/13/25 11:22 Laboratory Results 03/13/25 03/13/25 03/13/25 Range/Units 13:40 11:22 11:22 WBC (3.98-10.04) x10^3/uL RBC (3.93-5.22) x10^6/uL Hgb (11.2-15.7) g/dL Hct (34.1-44.9) % MCV (79.4-94.8) fL MCH (25.6-32.2) pg MCHC (32.2-35.5) g/dL RDW (11.7-14.4) % Plt Count (182-369) x10^3/uL MPV (9.4-12.3) fL Gran % (34.0-71.1) % Immature Gran % (Auto) (0.001-0.429) % Nucleat RBC Rel Count (0.00-0.2) % Eos # (Auto) (0.04-0.36) x10^3/uL Immature Gran # (Auto) (0.001-0.031) x10^3u/L Absolute Lymphs (auto) (1.18-3.74) x10^3/uL Absolute Monos (auto) (0.24-0.86) x10^3/uL Absolute Nucleated RBC (0.00-0.012) x10^3u/L Lymphocytes % (19.3-51.7) % Monocytes % (4.7-12.5) % Eosinophils % (0.7-5.8) % Basophils % (0.1-1.2) % Absolute Granulocytes (1.56-6.13) x10^3/uL Basophils # (0.01-0.08) x10^3/uL Sodium 143 (135-145) mmol/L Potassium 4.8 (3.5-5.1) mmol/L Chloride 106 (98-107) mmol/L Carbon Dioxide 25 (22-30) mmol/L Anion Gap 16.4 H (5-15) MEQ/L BUN 30 H (7-17) mg/dL Creatinine 0.76 (0.52-1.04) mg/dL Estimated GFR 82.2 ML/MIN Glucose 86 (74-106) mg/dL Calcium 9.0 (8.4-10.2) mg/dL Total Bilirubin 0.80 (0.2-1.3) mg/dL AST 43 H (14-36) U/L ALT 30 (0-35) U/L Alkaline Phosphatase 62 (38-126) U/L Troponin I < 0.012 < 0.012 (0.000-0.033) ng/mL Serum Total Protein 6.5 (6.3-8.2) g/dL Albumin 4.1 (3.5-5.0) g/dL 03/13/25 Range/Units 11:22 WBC 10.6 H (3.98-10.04) x10^3/uL RBC 4.63 (3.93-5.22) x10^6/uL Hgb 13.7 (11.2-15.7) g/dL Hct 41.3 (34.1-44.9) % MCV 89.2 (79.4-94.8) fL MCH 29.6 (25.6-32.2) pg MCHC 33.2 (32.2-35.5) g/dL RDW 13.7 (11.7-14.4) % Plt Count 267 (182-369) x10^3/uL MPV 9.1 L (9.4-12.3) fL Gran % 78.2 H (34.0-71.1) % Immature Gran % (Auto) 0.4 (0.001-0.429) % Nucleat RBC Rel Count 0.0 (0.00-0.2) % Eos # (Auto) 0.09 (0.04-0.36) x10^3/uL Immature Gran # (Auto) 0.04 H (0.001-0.031) x10^3u/L Absolute Lymphs (auto) 1.14 L (1.18-3.74) x10^3/uL Absolute Monos (auto) 0.99 H (0.24-0.86) x10^3/uL Absolute Nucleated RBC 0.00 (0.00-0.012) x10^3u/L Lymphocytes % 10.8 L (19.3-51.7) % Monocytes % 9.4 (4.7-12.5) % Eosinophils % 0.9 (0.7-5.8) % Basophils % 0.3 (0.1-1.2) % Absolute Granulocytes 8.27 H (1.56-6.13) x10^3/uL Basophils # 0.03 (0.01-0.08) x10^3/uL Sodium (135-145) mmol/L Potassium (3.5-5.1) mmol/L Chloride (98-107) mmol/L Carbon Dioxide (22-30) mmol/L Anion Gap (5-15) MEQ/L BUN (7-17) mg/dL Creatinine (0.52-1.04) mg/dL Estimated GFR ML/MIN Glucose (74-106) mg/dL Calcium (8.4-10.2) mg/dL Total Bilirubin (0.2-1.3) mg/dL AST (14-36) U/L ALT (0-35) U/L Alkaline Phosphatase (38-126) U/L Troponin I (0.000-0.033) ng/mL Serum Total Protein (6.3-8.2) g/dL Albumin (3.5-5.0) g/dL - Progress Progress: re-examined, unchanged Air Movement: good Progress Note: The patient had serial troponins that are both negative. Her chest x-ray was clear. Her EKG showed no acute changes. She did not have any chest pain while she was here. At this time I do not think the patient needs to be admitted however anything that she needs to be followed up. 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 She is going to call them and follow-up. I am going to discharge her to home.Pulmonary embolism is unlikely. She is not tachycardic or dyspneic. I do not think it is pneumonia or any infectious process either. 03/13/25 15:42 Medical Desision Making - Risk of complications Minimal Risk: Minimal risk of morbidity - Departure Departure Disposition: Home Clinical Impression: Chest pain Condition: Stable Critical Care Time: No Referrals: LEEANN CHRISTIANSEN [Primary Care Provider] - Follow up/PCP as directed Instructions: Chest Pain (DC)
[2025-03-13 11:25] LABS: Absolute Neutrophil Ct (ANC) 8.27 x10^3/uL (1.56-6.13); BASOPHIL % 0.3 % (0.1-1.2); Basophil (Absolute #) 0.03 x10^3/uL (0.01-0.08); Eosinophil % 0.9 % (0.7-5.8); Eosinophil (Absolute #) 0.09 x10^3/uL (0.04-0.36); Hematocrit 41.3 % (34.1-44.9); Hemoglobin 13.7 g/dL (11.2-15.7); IMMATURE GRAN # 0.04 x10^3u/L (0.001-0.031); IMMATURE GRAN % 0.4 % (0.001-0.429); Lymphocyte (Absolute #) 1.14 x10^3/uL (1.18-3.74); Lymphocytes % 10.8 % (19.3-51.7); Mean Cell Volume 89.2 fL (79.4-94.8); Mean Corpuscular Hemoglobin 29.6 pg (25.6-32.2); Mean Corpuscular Hgb Concent. 33.2 g/dL (32.2-35.5); Mean Platelet Volume 9.1 fL (9.4-12.3); Monocyte (Absolute #) 0.99 x10^3/uL (0.24-0.86); Monocytes % 9.4 % (4.7-12.5); Neutrophil % 78.2 % (34.0-71.1); Platelet Count 267 x10^3/uL (182-369); Red Blood Count 4.63 x10^6/uL (3.93-5.22); Red Cell Distribution Width 13.7 % (11.7-14.4); White Blood Count 10.6 x10^3/uL (3.98-10.04)
[2025-03-13 11:36] LABS: ALBUMIN 4.1 g/dL (3.5-5.0); ANION GAP 16.4 MEQ/L (5-15); BILIRUBIN,TOTAL 0.8 mg/dL (0.2-1.3); Creatinine 1 0.76 mg/dL (0.52-1.04); EST GLOMERULAR FILTRATION RATE 82.2 ML/MIN; Total Protein 6.5 g/dL (6.3-8.2)
[2025-03-13 11:37] LABS: Potassium 4.8 mmol/L (3.5-5.1)
--- NOTE | 2025-03-13 11:48 | XRAY ---
Indication: Chest pain. Comparison: December 01, 2024 Portable chest remains inflated and clear with incidental tiny left base calcified granuloma. Heart not enlarged again with CABG. Bony thorax intact again with osteopenia, mild degenerative changes, and minimal dextroscoliosis. Impression: Continue nonacute chest with chronic features.
[2025-03-13 15:51] VITALS: BP 139/54; PULSE 61; RESP 16; O2SAT 100
== END 2025-03-13 16:04 | disposition home or self-care (01) ==
LOC: ED 10:10
DX: R07.9 Chest pain, unspecified (principal); I10 Essential (primary) hypertension; E11.9 Type 2 diabetes mellitus without complications; Z79.4 Long term (current) use of insulin; Z79.899 Other long term (current) drug therapy; Z95.1 Presence of aortocoronary bypass graft
CPT/HCPCS: 36415; 71045; 80053; 84484; 85025; 93005; 99283; 99285